=== PATIENT | male | born 1980 | race Caucasian/White ===

== ENCOUNTER 2017-07-13 09:59 | Inpatient (IN) ==
[2017-07-13] MEDS ORDERED: 0.9 % Sodium Chloride 1,000 ML IVC ONE ×2 (10:07→11:46)
[2017-07-13] MEDS ORDERED: *HR* LORazepam 2 MG/ML VIAL IVP ONE (10:07)
[2017-07-13 10:24] LABS: Basophils % 0.4 %; Eosinophils % 0.1 %; Hematocrit 46.3 % (37.5-50.1); Hemoglobin 16.1 g/dL (12.9-16.9); Immature Granulocytes % 0.3 % (0-4); Lymphocytes # 2.2 K/mcL (0.6-4.6); Lymphocytes % 22.4 %; Mean Corpuscular HGB Conc 34.8 g/dL (31.6-35.5); Mean Corpuscular Hemoglobin 29.6 pg (28.0-33.3); Mean Corpuscular Volume 85.1 fL (83.0-100.0); Mean Platelet Volume 8.3 fL (9.4-12.4); Monocytes # 0.5 K/mcL (0.0-1.3); Monocytes % 4.6 %; Neutrophils # 7.2 K/mcL (1.6-8.9); Platelet Count 285 K/mcL (140-400); Red Blood Count 5.44 M/mcL (4.19-5.50); Red Cell Distribution Width 12.4 % (11.5-14.5); Segmented Neutrophils % 72.2 %
--- NOTE | 2017-07-13 10:25 | Emergency Department Note ---
Disposition Clinical Impression: Alcohol withdrawal Qualifiers: Complication of substance-induced condition: uncomplicated Qualified Code(s): F10.230 - Alcohol dependence with withdrawal, uncomplicated Disposition: Home, Self-Care Condition: Fair Referrals: NONE,PCP [Primary Care Provider] - Forms: ED Satisfaction Letter Time of Disposition: 13:28 General Adult HPI - General Chief complaint: ED Psychiatric Symptoms Stated complaint: anxiety Time Seen by Provider: 07/13/17 10:07 Source: patient Limitations: no limitations Nursing Notes Reviewed: Yes Vital Signs Reviewed: Yes - History of Present Illness HPI Narrative: Alert, oriented, and nontoxic appearing 36-year-old male presents by EMS for evaluation of anxiety after a 5 day stretch of "binge drinking". The patient states a history of heavy alcohol use. He states that he can go months at a time without drinking however when he does, "I will drink heavily for 4-5 days" . He states that his last drink was a 24 ounce can of beer at approximately 8: 00 this morning. He states that he is wanted to get help with his alcoholism however "nobody will see me because I do not have insurance". He denies any increased stresses at home. He denies any suicidal or homicidal ideations. He denies any auditory or visual hallucinations. He denies any chest pain, shortness of breath, abdominal pain, or any other medical complaints or concerns at this time. Pt Subjective Complaint: Anxiety Onset (ago): Just [employer] Pain Scale: 0 Improves with: nothing Worsens with: nothing Associated symptoms: Reports: denies other symptoms - Related Data Previous Rx's Medication Instructions Recorded HYDROcodone/Acet 5/325 mg [[place] 1 tab PO Q6H PRN #7 tab 08/06/16 5-325 mg] Hydrocortisone Acetate [Anusol-Hc] 25 mg RC BID #6 supp.rect 08/06/16 Ibuprofen [Motrin] 800 mg PO Q8HR #30 tablet 03/07/17 Polymyxn-B/Trimeth Opth Drops 1 drop RIGHT EYE QID 7 Days #1 04/01/17 [Polytrim Opth Drops] bottle Allergies Allergy/AdvReac Type Severity Reaction Status Date / Time No Known Allergies Allergy Verified 03/07/17 17:38 All systems ED: reviewed and negative except as stated. Constitutional: Denies: fever, chills, weakness, weight change Eyes: Denies: eye pain, eye discharge, vision change ENT ED: Denies: ear pain, throat pain, dental pain, hearing loss, epistaxis, congestion, dysphagia Cardiovascular: Denies: chest pain, palpitations, dyspnea on exertion, edema, syncope Respiratory: Denies: cough, dyspnea, wheezes, hemoptysis, stridor Gastrointestinal: Denies: abdominal pain, nausea, vomiting, diarrhea, constipation, hematemesis, melena, hematochezia Genitourinary: Denies: urgency, dysuria, frequency, hematuria Musculoskeletal: Denies: back pain, neck pain, arthralgia, myalgia Integumentary: Denies: rash, abrasion, lesions Neurological: Denies: headache, weakness, numbness, paresthesias, confusion, abnormal gait, vertigo Psychiatric: Reports: as per HPI, anxiety. Denies: depression, suicidal thoughts, homicidal thoughts, auditory hallucinations, visual hallucinations Endocrine: Denies: fatigue Hematological/Lymphatic: Denies: easy bleeding, easy bruising Allergic/Immunologic: Denies: facial swelling, urticaria Past Medical History - Past Medical History Attestation: Yes The following information was validated with the patient. Source: patient, nursing notes reviewed Medical history: Reports: hypertension, other Surgical history: Reports: non-contributory Psychiatric history: Reports: anxiety, depression - Social History Smoking Status: Current every day smoker Smokeless Tobacco Status: No Alcohol use: Reports: heavy, recent Drug use: Reports: none Physical Exam - General Limitations: no limitations General appearance: alert, anxious - Head Head exam: atraumatic, normocephalic, normal inspection - Eye Eye exam: Present: normal appearance, PERRL, EOMI. Absent: nystagmus - ENT ENT exam: mucous membranes moist - Neck Neck exam: Present: normal inspection, full ROM, trachea midline - Chest Chest inspection: Present: normal inspection, symmetric chest wall rise - Respiratory Respiratory exam: Present: normal lung sounds bilaterally. Absent: respiratory distress, wheezes, stridor, accessory muscle use, prolonged expiratory phase - Cardiovascular Cardiovascular exam: Present: normal rhythm, tachycardia, normal heart sounds - Abdominal Exam Abdominal exam: Present: soft, Non-Tender, normal bowel sounds - Extremities Exam Extremities exam: Present: normal inspection, full ROM. Absent: tenderness, pedal edema - Neurological Exam Neurological exam: Present: alert, oriented X3, normal gait - Psychiatric Psychiatric exam: Present: normal affect, normal mood, anxious - Skin Skin exam: Present: warm, dry, intact, normal color. Absent: rash Course Course Narrative: 1327: I spoke with Dr. Taylor of the Hospital services accepted the patient for further observation. I discussed this plan with Dr. Sherman. Dr. Hayes has had a [id number] evaluation with the patient and agrees with this plan. Vital Signs Temperature 98.7 F 07/13/17 10:01 Pulse Rate 146 07/13/17 10:01 Respiratory Rate 20 07/13/17 10:01 Blood Pressure 199/109 07/13/17 10:01 O2 Sat by Pulse Oximetry 96 07/13/17 10:01 Temperature 98.7 F 07/13/17 10:01 Pulse Rate 124 07/13/17 12:52 Respiratory Rate 16 07/13/17 12:52 Blood Pressure 157/108 07/13/17 12:52 O2 Sat by Pulse Oximetry 93 07/13/17 12:52 Oxygen Delivery Oxygen Delivery Room Air Medical Decision Making - Medical Records Medical records reviewed: Yes I reviewed the patient's medical records. - Lab Data Lab results reviewed: Yes I reviewed the patient's lab results. Lab results narrative: Laboratory Last Values WBC 9.9 K/mcL (4.3-11.1) 07/13/17 10:07 RBC 5.44 M/mcL (4.19-5.50) 07/13/17 10:07 Hgb 16.1 g/dL (12.9-16.9) 07/13/17 10:07 Hct 46.3 % (37.5-50.1) 07/13/17 10:07 MCV 85.1 fL (83.0-100.0) 07/13/17 10:07 MCH 29.6 pg (28.0-33.3) 07/13/17 10:07 MCHC 34.8 g/dL (31.6-35.5) 07/13/17 10:07 RDW 12.4 % (11.5-14.5) 07/13/17 10:07 Plt Count 285 K/mcL (140-400) 07/13/17 10:07 MPV 8.3 fL (9.4-12.4) L 07/13/17 10:07 Immature Gran % 0.3 % (0-4) 07/13/17 10:07 Seg Neutrophils % 72.2 % 07/13/17 10:07 Lymphocytes % 22.4 % 07/13/17 10:07 Monocytes % 4.6 % 07/13/17 10:07 Eosinophils % 0.1 % 07/13/17 10:07 Basophils % 0.4 % 07/13/17 10:07 Neutrophils # 7.2 K/mcL (1.6-8.9) 07/13/17 10:07 Lymphocytes # 2.2 K/mcL (0.6-4.6) 07/13/17 10:07 Monocytes # 0.5 K/mcL (0.0-1.3) 07/13/17 10:07 Eosinophils # 0.0 K/mcL (0.0-0.6) 07/13/17 10:07 Basophils # 0.0 K/mcL (0.0-0.2) 07/13/17 10:07 PT 10.5 Seconds (9.4-12.1) 07/13/17 10:07 INR 1.0 07/13/17 10:07 D-Dimer 309 ng/mLFEU (0-500) 07/13/17 11:46 Sodium 135 mEq/L (136-145) L 07/13/17 10:07 Potassium 3.1 mEq/L (3.5-5.1) L 07/13/17 10:07 Chloride 99 mEq/L (98-107) 07/13/17 10:07 Carbon Dioxide 19 mEq/L (23-29) L 07/13/17 10:07 BUN 8 mg/dL (6-20) 07/13/17 10:07 Creatinine 0.83 mg/dL (0.70-1.30) 07/13/17 10:07 Est GFR ( Amer) > 60 (> 60) 07/13/17 10:07 Est GFR (Non-Af Amer) > 60 (> 60) 07/13/17 10:07 BUN/Creatinine Ratio 10 (6-26) 07/13/17 10:07 Glucose 115 mg/dL (70-105) H 07/13/17 10:07 Calculated Osmolality 279 (280-300) L 07/13/17 10:07 Calcium 9.6 mg/dL (8.6-10.3) 07/13/17 10:07 Phosphorus 3.0 mg/dL (2.7-4.5) 07/13/17 10:07 Magnesium 1.9 mg/dL (1.6-2.6) 07/13/17 10:07 Total Bilirubin 0.8 mg/dL (0.3-1.0) 07/13/17 10:07 AST 35 Units/L (13-39) 07/13/17 10:07 ALT 51 Units/L (7-52) 07/13/17 10:07 Alkaline Phosphatase 68 Units/L (34-104) 07/13/17 10:07 Troponin I < 0.03 ng/mL (< 0.04) 07/13/17 10:09 Serum Total Protein 8.3 g/dL (6.4-8.9) 07/13/17 10:07 Albumin 5.0 g/dL (3.5-5.7) 07/13/17 10:07 Globulin 3.3 g/dL (2.4-3.5) 07/13/17 10:07 Albumin/Globulin Ratio 1.5 (1.1-2.2) 07/13/17 10:07 Lipase 44 Units/L (11-82) 07/13/17 10:07 TSH 1.712 mcIU/mL (0.340-5.600) 07/13/17 10:09 Urine Color Yellow (Yellow) 07/13/17 10:40 Urine Clarity Clear (Clear) 07/13/17 10:40 Urine pH 6.5 pH Units (5.0-8.0) 07/13/17 10:40 Ur Specific Gary 1.010 (1.010-1.025) 07/13/17 10:40 Urine Protein 30 mg/dL (Neg-Trace) H 07/13/17 10:40 Urine Glucose (UA) Normal mg/dL (Normal) 07/13/17 10:40 Urine Ketones Negative mg/dL (Negative) 07/13/17 10:40 Urine Blood Trace (Negative) H 07/13/17 10:40 Urine Nitrite Negative (Negative) 07/13/17 10:40 Urine Bilirubin Negative (Negative) 07/13/17 10:40 Urine Urobilinogen Normal mg/dL (Normal) 07/13/17 10:40 Ur Leukocyte Esterase Negative (Negative) 07/13/17 10:40 Urine Microscopic RBC 0-3 per hpf (0-3) 07/13/17 10:40 Urine Microscopic WBC 0-3 per hpf (0-3) 07/13/17 10:40 Ur Squamous Epith Cells None Seen per lpf (None-Few) 07/13/17 10:40 Urine Bacteria None Seen per hpf (None-Few) 07/13/17 10:40 Hyaline Casts None Seen per lpf (None-Few) 07/13/17 10:40 Urine Opiates Screen Negative ng/mL (Sdzhhe=892) 07/13/17 10:40 Ur Barbiturates Screen Negative ng/mL (Fiejek=730) 07/13/17 10:40 Ur Phencyclidine Scrn Negative ng/mL (Cutoff=25) 07/13/17 10:40 Ur Amphetamines Screen Negative ng/mL (Wlkuim=9775) 07/13/17 10:40 U Benzodiazepines Scrn Negative ng/mL (Awizsi=050) 07/13/17 10:40 Urine Cocaine Screen Negative ng/mL (Cutoff= 300) 07/13/17 10:40 U Marijuana (THC) Screen Negative ng/mL (Cutoff = 50) 07/13/17 10:40 Ethyl Alcohol 31 mg/dL (Less than 10) H 07/13/17 10:07 Result diagrams: 07/13/17 10:07 07/13/17 10:07 Lab Results 07/13/17 07/13/17 07/13/17 Range/Units 10:07 10:07 10:07 WBC 9.9 (4.3-11.1) K/mcL RBC 5.44 (4.19-5.50) M/mcL Hgb 16.1 (12.9-16.9) g/dL Hct 46.3 (37.5-50.1) % MCV 85.1 (83.0-100.0) fL MCH 29.6 (28.0-33.3) pg MCHC 34.8 (31.6-35.5) g/dL RDW 12.4 (11.5-14.5) % Plt Count 285 (140-400) K/mcL MPV 8.3 L (9.4-12.4) fL Immature Gran % 0.3 (0-4) % Seg Neutrophils % 72.2 % Lymphocytes % 22.4 % Monocytes % 4.6 % Eosinophils % 0.1 % Basophils % 0.4 % Neutrophils # 7.2 (1.6-8.9) K/mcL Lymphocytes # 2.2 (0.6-4.6) K/mcL Monocytes # 0.5 (0.0-1.3) K/mcL Eosinophils # 0.0 (0.0-0.6) K/mcL Basophils # 0.0 (0.0-0.2) K/mcL PT 10.5 (9.4-12.1) Seconds INR 1.0 D-Dimer (0-500) ng/mLFEU Sodium 135 L (136-145) mEq/L Potassium 3.1 L (3.5-5.1) mEq/L Chloride 99 (98-107) mEq/L Carbon Dioxide 19 L (23-29) mEq/L BUN 8 (6-20) mg/dL Creatinine 0.83 (0.70-1.30) mg/dL Est GFR ( Amer) > 60 (> 60) Est GFR (Non-Af Amer) > 60 (> 60) BUN/Creatinine Ratio 10 (6-26) Glucose 115 H (70-105) mg/dL Calculated Osmolality 279 L (280-300) Calcium 9.6 (8.6-10.3) mg/dL Phosphorus 3.0 (2.7-4.5) mg/dL Magnesium 1.9 (1.6-2.6) mg/dL Total Bilirubin 0.8 (0.3-1.0) mg/dL AST 35 (13-39) Units/L ALT 51 (7-52) Units/L Alkaline Phosphatase 68 (34-104) Units/L Troponin I (< 0.04) ng/mL Serum Total Protein 8.3 (6.4-8.9) g/dL Albumin 5.0 (3.5-5.7) g/dL Globulin 3.3 (2.4-3.5) g/dL Albumin/Globulin Ratio 1.5 (1.1-2.2) Lipase 44 (11-82) Units/L TSH (0.340-5.600) mcIU/mL Urine Color (Yellow) Urine Clarity (Clear) Urine pH (5.0-8.0) pH Units Ur Specific Gary (1.010-1.025) Urine Protein (Neg-Trace) mg/dL Urine Glucose (UA) (Normal) mg/dL Urine Ketones (Negative) mg/dL Urine Blood (Negative) Urine Nitrite (Negative) Urine Bilirubin (Negative) Urine Urobilinogen (Normal) mg/dL Ur Leukocyte Esterase (Negative) Urine Microscopic RBC (0-3) per hpf Urine Microscopic WBC (0-3) per hpf Ur Squamous Epith Cells (None-Few) per lpf Urine Bacteria (None-Few) per hpf Hyaline Casts (None-Few) per lpf Urine Opiates Screen (Zedadq=387) ng/mL Ur Barbiturates Screen (Qherkz=882) ng/mL Ur Phencyclidine Scrn (Cutoff=25) ng/mL Ur Amphetamines Screen (Dnvphi=3510) ng/mL U Benzodiazepines Scrn (Xxetnh=759) ng/mL Urine Cocaine Screen (Cutoff= 300) ng/mL U Marijuana (THC) Screen (Cutoff = 50) ng/mL Ethyl Alcohol 31 H (Less than 10) mg/dL 07/13/17 07/13/17 07/13/17 Range/Units 10:09 10:40 10:40 WBC (4.3-11.1) K/mcL RBC (4.19-5.50) M/mcL Hgb (12.9-16.9) g/dL Hct (37.5-50.1) % MCV (83.0-100.0) fL MCH (28.0-33.3) pg MCHC (31.6-35.5) g/dL RDW (11.5-14.5) % Plt Count (140-400) K/mcL MPV (9.4-12.4) fL Immature Gran % (0-4) % Seg Neutrophils % % Lymphocytes % % Monocytes % % Eosinophils % % Basophils % % Neutrophils # (1.6-8.9) K/mcL Lymphocytes # (0.6-4.6) K/mcL Monocytes # (0.0-1.3) K/mcL Eosinophils # (0.0-0.6) K/mcL Basophils # (0.0-0.2) K/mcL PT (9.4-12.1) Seconds INR D-Dimer (0-500) ng/mLFEU Sodium (136-145) mEq/L Potassium (3.5-5.1) mEq/L Chloride (98-107) mEq/L Carbon Dioxide (23-29) mEq/L BUN (6-20) mg/dL Creatinine (0.70-1.30) mg/dL Est GFR ( Amer) (> 60) Est GFR (Non-Af Amer) (> 60) BUN/Creatinine Ratio (6-26) Glucose (70-105) mg/dL Calculated Osmolality (280-300) Calcium (8.6-10.3) mg/dL Phosphorus (2.7-4.5) mg/dL Magnesium (1.6-2.6) mg/dL Total Bilirubin (0.3-1.0) mg/dL AST (13-39) Units/L ALT (7-52) Units/L Alkaline Phosphatase (34-104) Units/L Troponin I < 0.03 (< 0.04) ng/mL Serum Total Protein (6.4-8.9) g/dL Albumin (3.5-5.7) g/dL Globulin (2.4-3.5) g/dL Albumin/Globulin Ratio (1.1-2.2) Lipase (11-82) Units/L TSH 1.712 (0.340-5.600) mcIU/mL Urine Color Yellow (Yellow) Urine Clarity Clear (Clear) Urine pH 6.5 (5.0-8.0) pH Units Ur Specific Gary 1.010 (1.010-1.025) Urine Protein 30 H (Neg-Trace) mg/dL Urine Glucose (UA) Normal (Normal) mg/dL Urine Ketones Negative (Negative) mg/dL Urine Blood Trace H (Negative) Urine Nitrite Negative (Negative) Urine Bilirubin Negative (Negative) Urine Urobilinogen Normal (Normal) mg/dL Ur Leukocyte Esterase Negative (Negative) Urine Microscopic RBC 0-3 (0-3) per hpf Urine Microscopic WBC 0-3 (0-3) per hpf Ur Squamous Epith Cells None Seen (None-Few) per lpf Urine Bacteria None Seen (None-Few) per hpf Hyaline Casts None Seen (None-Few) per lpf Urine Opiates Screen Negative (Dlmybh=011) ng/mL Ur Barbiturates Screen Negative (Cerilg=028) ng/mL Ur Phencyclidine Scrn Negative (Cutoff=25) ng/mL Ur Amphetamines Screen Negative (Sdsobo=0944) ng/mL U Benzodiazepines Scrn Negative (Mrrkmo=600) ng/mL Urine Cocaine Screen Negative (Cutoff= 300) ng/mL U Marijuana (THC) Screen Negative (Cutoff = 50) ng/mL Ethyl Alcohol (Less than 10) mg/dL 07/13/17 Range/Units 11:46 WBC (4.3-11.1) K/mcL RBC (4.19-5.50) M/mcL Hgb (12.9-16.9) g/dL Hct (37.5-50.1) % MCV (83.0-100.0) fL MCH (28.0-33.3) pg MCHC (31.6-35.5) g/dL RDW (11.5-14.5) % Plt Count (140-400) K/mcL MPV (9.4-12.4) fL Immature Gran % (0-4) % Seg Neutrophils % % Lymphocytes % % Monocytes % % Eosinophils % % Basophils % % Neutrophils # (1.6-8.9) K/mcL Lymphocytes # (0.6-4.6) K/mcL Monocytes # (0.0-1.3) K/mcL Eosinophils # (0.0-0.6) K/mcL Basophils # (0.0-0.2) K/mcL PT (9.4-12.1) Seconds INR D-Dimer 309 (0-500) ng/mLFEU Sodium (136-145) mEq/L Potassium (3.5-5.1) mEq/L Chloride (98-107) mEq/L Carbon Dioxide (23-29) mEq/L BUN (6-20) mg/dL Creatinine (0.70-1.30) mg/dL Est GFR ( Amer) (> 60) Est GFR (Non-Af Amer) (> 60) BUN/Creatinine Ratio (6-26) Glucose (70-105) mg/dL Calculated Osmolality (280-300) Calcium (8.6-10.3) mg/dL Phosphorus (2.7-4.5) mg/dL Magnesium (1.6-2.6) mg/dL Total Bilirubin (0.3-1.0) mg/dL AST (13-39) Units/L ALT (7-52) Units/L Alkaline Phosphatase (34-104) Units/L Troponin I (< 0.04) ng/mL Serum Total Protein (6.4-8.9) g/dL Albumin (3.5-5.7) g/dL Globulin (2.4-3.5) g/dL Albumin/Globulin Ratio (1.1-2.2) Lipase (11-82) Units/L TSH (0.340-5.600) mcIU/mL Urine Color (Yellow) Urine Clarity (Clear) Urine pH (5.0-8.0) pH Units Ur Specific Gary (1.010-1.025) Urine Protein (Neg-Trace) mg/dL Urine Glucose (UA) (Normal) mg/dL Urine Ketones (Negative) mg/dL Urine Blood (Negative) Urine Nitrite (Negative) Urine Bilirubin (Negative) Urine Urobilinogen (Normal) mg/dL Ur Leukocyte Esterase (Negative) Urine Microscopic RBC (0-3) per hpf Urine Microscopic WBC (0-3) per hpf Ur Squamous Epith Cells (None-Few) per lpf Urine Bacteria (None-Few) per hpf Hyaline Casts (None-Few) per lpf Urine Opiates Screen (Vdxixa=725) ng/mL Ur Barbiturates Screen (Fcrghh=033) ng/mL Ur Phencyclidine Scrn (Cutoff=25) ng/mL Ur Amphetamines Screen (Rmsdkc=1492) ng/mL U Benzodiazepines Scrn (Oqihke=626) ng/mL Urine Cocaine Screen (Cutoff= 300) ng/mL U Marijuana (THC) Screen (Cutoff = 50) ng/mL Ethyl Alcohol (Less than 10) mg/dL - Radiology Data Radiology results reviewed: Yes I reviewed the patient's radiology results. Chest X-Ray 07/13/17 10:07 IMPRESSION: No acute cardiopulmonary process. D/ / 07/13/2017 11:19:05 Virgilio Gore MD / [email or web address] Interpreting Provider: Virgilio Gore MD - EKG Data EKG #1 EKG attestation: Yes I reviewed and interpreted this EKG. EKG results narrative: EKG reviewed by Dr. Barber as well. EKG shows a sinus tachycardia at a rate of 137 bpm. MD interval 136, QRS duration 89, QT/QTc interval 3-4/404. No ectopy noted. No ST elevation. No significant changes when compared to an EKG dated from .
[2017-07-13 10:50] LABS: Alanine Aminotransferase 51 Units/L (7-52); Albumin/Globulin Ratio 1.5 (1.1-2.2); Alkaline Phosphatase 68 Units/L (34-104); Aspartate Amino Transferase 35 Units/L (13-39); BUN/Creatinine Ratio 10 (6-26); Bilirubin,Total 0.8 mg/dL (0.3-1.0); Blood Urea Nitrogen 8 mg/dL (6-20); Calcium 9.6 mg/dL (8.6-10.3); Carbon Dioxide 19 mEq/L (23-29); Chloride 99 mEq/L (98-107); Globulin 3.3 g/dL (2.4-3.5); Glucose 115 mg/dL (70-105); Lipase 44 Units/L (11-82); Magnesium 1.9 mg/dL (1.6-2.6); Osmolality,Calculated 279 (280-300); Potassium 3.1 mEq/L (3.5-5.1); Sodium 135 mEq/L (136-145); Total Protein 8.3 g/dL (6.4-8.9); eGFR For African Americans > 60 (> 60); eGFR For Non-African Americans > 60 (> 60)
[2017-07-13 10:52] LABS: Troponin I < 0.03 ng/mL (< 0.04)
[2017-07-13 10:58] LABS: Prothrombin Time 10.5 Seconds (9.4-12.1)
[2017-07-13 11:06] LABS: Thyroid Stimulating Hormone 1.712 mcIU/mL (0.340-5.600)
[2017-07-13 11:19] LABS: Bilirubin,Urine Negative (Negative); Blood,Urine Trace (Negative); Clarity,Urine Clear (Clear); Color,Urine Yellow (Yellow); Glucose,Urine (UA) Normal (Normal); Ketones,Urine Negative (Negative); Leukocyte Esterase,Urine Negative (Negative); Nitrite,Urine Negative (Negative); PH,Urine 6.5 pH Units (5.0-8.0); Protein,Urine 30 mg/dL (Neg-Trace); Urobilinogen,Urine Normal (Normal)
[2017-07-13 11:22] LABS: Bacteria,Urine None Seen per hpf (None-Few); Hyaline Casts,Urine None Seen per lpf (None-Few); RBC,Urine 0-3 per hpf (0-3); Squamous Epithelial Cell,Urine None Seen per lpf (None-Few); WBC,Urine 0-3 per hpf (0-3)
[2017-07-13 12:52] LABS: Amphetamine Screen,Urine Negative ng/mL (Cutoff=1000); Barbiturate Screen,Urine Negative ng/mL (Cutoff=200); Benzodiazepines Screen,Urine Negative ng/mL (Cutoff=200); Cannabinoid Screen,Urine Negative ng/mL (Cutoff = 50); Cocaine Screen,Urine Negative ng/mL (Cutoff= 300); Opiate Screen,Urine Negative ng/mL (Cutoff=300); Phencyclidine Screen,Urine Negative ng/mL (Cutoff=25)
[2017-07-13 12:59] LABS: Ethanol 31 mg/dL (Less than 10)
[2017-07-13] MEDS ORDERED: Folic Acid 1 MG in 0.9 % Sodium Chloride 50 ML IVPB ONE (13:09)
[2017-07-13] MEDS ORDERED: MVI, adult with vitamin K 10 ML in 0.9 % Sodium Chloride 1,000 ML IVC ONE (13:09)
[2017-07-13] MEDS ORDERED: Thiamine (B-1) 100 MG in 0.9 % Sodium Chloride 50 ML IVPB ONE (13:09)
[2017-07-13] MEDS ORDERED: Naloxone 0.4 MG/ML INJ IVP PRN (14:14)
[2017-07-13] MEDS ORDERED: *HR* LORazepam 2 MG/ML VIAL IVP PRN ×3 (14:14)
--- NOTE | 2017-07-13 14:15 | Emergency Department Note ---
Disposition Clinical Impression: Alcohol withdrawal Qualifiers: Complication of substance-induced condition: uncomplicated Qualified Code(s): F10.230 - Alcohol dependence with withdrawal, uncomplicated Disposition: Home, Self-Care Condition: Fair General Adult HPI - General Chief complaint: ED Psychiatric Symptoms Stated complaint: anxiety, alcohol abuse Time Seen by Provider: 07/13/17 10:07 Source: patient Limitations: no limitations - History of Present Illness Pain Scale: 0 Improves with: nothing Worsens with: nothing Associated symptoms: Reports: denies other symptoms - Related Data Home Medications Medication Instructions Recorded Confirmed No Known Home Drugs 07/13/17 07/13/17 Allergies Allergy/AdvReac Type Severity Reaction Status Date / Time No Known Allergies Allergy Verified 03/07/17 17:38 Constitutional: Denies: fever, chills, weakness, weight change Eyes: Denies: eye pain, eye discharge, vision change ENT ED: Denies: ear pain, throat pain, dental pain, hearing loss, epistaxis, congestion, dysphagia Cardiovascular: Denies: chest pain, palpitations, dyspnea on exertion, edema, syncope Respiratory: Denies: cough, dyspnea, wheezes, hemoptysis, stridor Gastrointestinal: Denies: abdominal pain, nausea, vomiting, diarrhea, constipation, hematemesis, melena, hematochezia Genitourinary: Denies: urgency, dysuria, frequency, hematuria Musculoskeletal: Denies: back pain, neck pain, arthralgia, myalgia Integumentary: Denies: rash, abrasion, lesions Neurological: Denies: headache, weakness, numbness, paresthesias, confusion, abnormal gait, vertigo Psychiatric: Reports: as per HPI, anxiety. Denies: depression, suicidal thoughts, homicidal thoughts, auditory hallucinations, visual hallucinations Endocrine: Denies: fatigue Hematological/Lymphatic: Denies: easy bleeding, easy bruising Allergic/Immunologic: Denies: facial swelling, urticaria Past Medical History - Past Medical History Medical history: Reports: hypertension, other Surgical history: Reports: non-contributory Psychiatric history: Reports: anxiety, depression - Social History Smoking Status: Current every day smoker Smokeless Tobacco Status: No Alcohol use: Reports: heavy, recent Drug use: Reports: none Physical Exam - General Limitations: no limitations General appearance: alert, anxious Course Vital Signs Temperature 98.7 F 07/13/17 10:01 Pulse Rate 146 07/13/17 10:01 Respiratory Rate 20 07/13/17 10:01 Blood Pressure 199/109 07/13/17 10:01 O2 Sat by Pulse Oximetry 96 07/13/17 10:01 Temperature 98.7 F 07/13/17 10:01 Pulse Rate 106 07/13/17 14:00 Respiratory Rate 16 07/13/17 14:00 Blood Pressure 166/106 07/13/17 14:00 O2 Sat by Pulse Oximetry 93 07/13/17 14:00 Oxygen Delivery Oxygen Delivery Room Air Medical Decision Making - Lab Data Result diagrams: 07/13/17 10:07 07/13/17 10:07 Lab Results 07/13/17 07/13/17 07/13/17 Range/Units 10:07 10:07 10:07 WBC 9.9 (4.3-11.1) K/mcL RBC 5.44 (4.19-5.50) M/mcL Hgb 16.1 (12.9-16.9) g/dL Hct 46.3 (37.5-50.1) % MCV 85.1 (83.0-100.0) fL MCH 29.6 (28.0-33.3) pg MCHC 34.8 (31.6-35.5) g/dL RDW 12.4 (11.5-14.5) % Plt Count 285 (140-400) K/mcL MPV 8.3 L (9.4-12.4) fL Immature Gran % 0.3 (0-4) % Seg Neutrophils % 72.2 % Lymphocytes % 22.4 % Monocytes % 4.6 % Eosinophils % 0.1 % Basophils % 0.4 % Neutrophils # 7.2 (1.6-8.9) K/mcL Lymphocytes # 2.2 (0.6-4.6) K/mcL Monocytes # 0.5 (0.0-1.3) K/mcL Eosinophils # 0.0 (0.0-0.6) K/mcL Basophils # 0.0 (0.0-0.2) K/mcL PT 10.5 (9.4-12.1) Seconds INR 1.0 D-Dimer (0-500) ng/mLFEU Sodium 135 L (136-145) mEq/L Potassium 3.1 L (3.5-5.1) mEq/L Chloride 99 (98-107) mEq/L Carbon Dioxide 19 L (23-29) mEq/L BUN 8 (6-20) mg/dL Creatinine 0.83 (0.70-1.30) mg/dL Est GFR ( Amer) > 60 (> 60) Est GFR (Non-Af Amer) > 60 (> 60) BUN/Creatinine Ratio 10 (6-26) Glucose 115 H (70-105) mg/dL Calculated Osmolality 279 L (280-300) Calcium 9.6 (8.6-10.3) mg/dL Phosphorus 3.0 (2.7-4.5) mg/dL Magnesium 1.9 (1.6-2.6) mg/dL Total Bilirubin 0.8 (0.3-1.0) mg/dL AST 35 (13-39) Units/L ALT 51 (7-52) Units/L Alkaline Phosphatase 68 (34-104) Units/L Troponin I (< 0.04) ng/mL Serum Total Protein 8.3 (6.4-8.9) g/dL Albumin 5.0 (3.5-5.7) g/dL Globulin 3.3 (2.4-3.5) g/dL Albumin/Globulin Ratio 1.5 (1.1-2.2) Lipase 44 (11-82) Units/L TSH (0.340-5.600) mcIU/mL Urine Color (Yellow) Urine Clarity (Clear) Urine pH (5.0-8.0) pH Units Ur Specific [place] (1.010-1.025) Urine Protein (Neg-Trace) mg/dL Urine Glucose (UA) (Normal) mg/dL Urine Ketones (Negative) mg/dL Urine Blood (Negative) Urine Nitrite (Negative) Urine Bilirubin (Negative) Urine Urobilinogen (Normal) mg/dL Ur Leukocyte Esterase (Negative) Urine Microscopic RBC (0-3) per hpf Urine Microscopic WBC (0-3) per hpf Ur Squamous Epith Cells (None-Few) per lpf Urine Bacteria (None-Few) per hpf Hyaline Casts (None-Few) per lpf Urine Opiates Screen (Cvrazv=659) ng/mL Ur Barbiturates Screen (Otajko=363) ng/mL Ur Phencyclidine Scrn (Cutoff=25) ng/mL Ur Amphetamines Screen (Biyipz=6830) ng/mL U Benzodiazepines Scrn (Zteftc=997) ng/mL Urine Cocaine Screen (Cutoff= 300) ng/mL U Marijuana (THC) Screen (Cutoff = 50) ng/mL Ethyl Alcohol 31 H (Less than 10) mg/dL 07/13/17 07/13/17 07/13/17 Range/Units 10:09 10:40 10:40 WBC (4.3-11.1) K/mcL RBC (4.19-5.50) M/mcL Hgb (12.9-16.9) g/dL Hct (37.5-50.1) % MCV (83.0-100.0) fL MCH (28.0-33.3) pg MCHC (31.6-35.5) g/dL RDW (11.5-14.5) % Plt Count (140-400) K/mcL MPV (9.4-12.4) fL Immature Gran % (0-4) % Seg Neutrophils % % Lymphocytes % % Monocytes % % Eosinophils % % Basophils % % Neutrophils # (1.6-8.9) K/mcL Lymphocytes # (0.6-4.6) K/mcL Monocytes # (0.0-1.3) K/mcL Eosinophils # (0.0-0.6) K/mcL Basophils # (0.0-0.2) K/mcL PT (9.4-12.1) Seconds INR D-Dimer (0-500) ng/mLFEU Sodium (136-145) mEq/L Potassium (3.5-5.1) mEq/L Chloride (98-107) mEq/L Carbon Dioxide (23-29) mEq/L BUN (6-20) mg/dL Creatinine (0.70-1.30) mg/dL Est GFR ( Amer) (> 60) Est GFR (Non-Af Amer) (> 60) BUN/Creatinine Ratio (6-26) Glucose (70-105) mg/dL Calculated Osmolality (280-300) Calcium (8.6-10.3) mg/dL Phosphorus (2.7-4.5) mg/dL Magnesium (1.6-2.6) mg/dL Total Bilirubin (0.3-1.0) mg/dL AST (13-39) Units/L ALT (7-52) Units/L Alkaline Phosphatase (34-104) Units/L Troponin I < 0.03 (< 0.04) ng/mL Serum Total Protein (6.4-8.9) g/dL Albumin (3.5-5.7) g/dL Globulin (2.4-3.5) g/dL Albumin/Globulin Ratio (1.1-2.2) Lipase (11-82) Units/L TSH 1.712 (0.340-5.600) mcIU/mL Urine Color Yellow (Yellow) Urine Clarity Clear (Clear) Urine pH 6.5 (5.0-8.0) pH Units Ur Specific [place] 1.010 (1.010-1.025) Urine Protein 30 H (Neg-Trace) mg/dL Urine Glucose (UA) Normal (Normal) mg/dL Urine Ketones Negative (Negative) mg/dL Urine Blood Trace H (Negative) Urine Nitrite Negative (Negative) Urine Bilirubin Negative (Negative) Urine Urobilinogen Normal (Normal) mg/dL Ur Leukocyte Esterase Negative (Negative) Urine Microscopic RBC 0-3 (0-3) per hpf Urine Microscopic WBC 0-3 (0-3) per hpf Ur Squamous Epith Cells None Seen (None-Few) per lpf Urine Bacteria None Seen (None-Few) per hpf Hyaline Casts None Seen (None-Few) per lpf Urine Opiates Screen Negative (Lieigm=164) ng/mL Ur Barbiturates Screen Negative (Dumwur=515) ng/mL Ur Phencyclidine Scrn Negative (Cutoff=25) ng/mL Ur Amphetamines Screen Negative (Entnxz=6402) ng/mL U Benzodiazepines Scrn Negative (Lcvihg=947) ng/mL Urine Cocaine Screen Negative (Cutoff= 300) ng/mL U Marijuana (THC) Screen Negative (Cutoff = 50) ng/mL Ethyl Alcohol (Less than 10) mg/dL 07/13/17 Range/Units 11:46 WBC (4.3-11.1) K/mcL RBC (4.19-5.50) M/mcL Hgb (12.9-16.9) g/dL Hct (37.5-50.1) % MCV (83.0-100.0) fL MCH (28.0-33.3) pg MCHC (31.6-35.5) g/dL RDW (11.5-14.5) % Plt Count (140-400) K/mcL MPV (9.4-12.4) fL Immature Gran % (0-4) % Seg Neutrophils % % Lymphocytes % % Monocytes % % Eosinophils % % Basophils % % Neutrophils # (1.6-8.9) K/mcL Lymphocytes # (0.6-4.6) K/mcL Monocytes # (0.0-1.3) K/mcL Eosinophils # (0.0-0.6) K/mcL Basophils # (0.0-0.2) K/mcL PT (9.4-12.1) Seconds INR D-Dimer 309 (0-500) ng/mLFEU Sodium (136-145) mEq/L Potassium (3.5-5.1) mEq/L Chloride (98-107) mEq/L Carbon Dioxide (23-29) mEq/L BUN (6-20) mg/dL Creatinine (0.70-1.30) mg/dL Est GFR ( Amer) (> 60) Est GFR (Non-Af Amer) (> 60) BUN/Creatinine Ratio (6-26) Glucose (70-105) mg/dL Calculated Osmolality (280-300) Calcium (8.6-10.3) mg/dL Phosphorus (2.7-4.5) mg/dL Magnesium (1.6-2.6) mg/dL Total Bilirubin (0.3-1.0) mg/dL AST (13-39) Units/L ALT (7-52) Units/L Alkaline Phosphatase (34-104) Units/L Troponin I (< 0.04) ng/mL Serum Total Protein (6.4-8.9) g/dL Albumin (3.5-5.7) g/dL Globulin (2.4-3.5) g/dL Albumin/Globulin Ratio (1.1-2.2) Lipase (11-82) Units/L TSH (0.340-5.600) mcIU/mL Urine Color (Yellow) Urine Clarity (Clear) Urine pH (5.0-8.0) pH Units Ur Specific [place] (1.010-1.025) Urine Protein (Neg-Trace) mg/dL Urine Glucose (UA) (Normal) mg/dL Urine Ketones (Negative) mg/dL Urine Blood (Negative) Urine Nitrite (Negative) Urine Bilirubin (Negative) Urine Urobilinogen (Normal) mg/dL Ur Leukocyte Esterase (Negative) Urine Microscopic RBC (0-3) per hpf Urine Microscopic WBC (0-3) per hpf Ur Squamous Epith Cells (None-Few) per lpf Urine Bacteria (None-Few) per hpf Hyaline Casts (None-Few) per lpf Urine Opiates Screen (Sylqpe=352) ng/mL Ur Barbiturates Screen (Crsihq=809) ng/mL Ur Phencyclidine Scrn (Cutoff=25) ng/mL Ur Amphetamines Screen (Mhtczw=4228) ng/mL U Benzodiazepines Scrn (Zqrtmd=940) ng/mL Urine Cocaine Screen (Cutoff= 300) ng/mL U Marijuana (THC) Screen (Cutoff = 50) ng/mL Ethyl Alcohol (Less than 10) mg/dL Attestation Statement - Attestation Attestation: For this encounter, I have reviewed the DISMANTLER or PA documentation, treatment plan, and medical decision making; and I have had face to face time with this patient. 36-year-old who comes in with heavy alcohol intake has not drank in several hours now with anxiousness and tachycardia appears to be in withdrawal. Lungs are clear abdomen is soft. Patient will be admitted for alcohol withdrawal.
--- NOTE | 2017-07-13 14:28 | Internal Med History&Physical ---
<Venkat Ivy - Last Filed: 07/13/17 16:46> Date of Encounter: 07/13/17 Time of Encounter: 14:20 Internal Medicine - H&P: HPI Chief complaint: Concern for alcohol withdrawal Admitted From: Home Plans for Post Hospital Care: Home History of present illness: Mr. Vera is a 36 year old male with history of alcohol abuse and hypertension. Presents today by EMS reevaluation of anxiety. The patient reports that he has been drinking heavily recently. He notes that sometimes he will go months at a time without drinking however over the last 4-5 days he has been drinking very heavily. He states that last Thursday he attempted to quit drinking but within the first 24 hours he became very anxious. So began drinking again over the last 4-5 days. He reports that his last drink was 8 AM this morning. He also reports that he does wish to quit drinking and has been seeing the [facility] however he notes he does not attend his classes. He denies any suicidal or homicidal ideation, denies auditory or visual hallucinations. Denies any chest pain, shortness of breath, abdominal pain, nausea, vomiting or diarrhea. Past Med Surg Social Fam HX - Past Medical History Medical history: hypertension, other Psychiatric history: anxiety, depression - Past Surgical History Surgical History: non-contributory - Social History Smoking Status: Current every day smoker Smokeless Tobacco Status: No Alcohol use: heavy, recent Drug use: none - Family History Mother History Unknown: Yes Internal Medicine - H&P: Meds No Known Home Drugs 07/13/17 [History] 3 Allergy/AdvReac Type Severity Reaction Status Date / Time No Known Allergies Allergy Verified 03/07/17 17:38 All Systems PM: A 10-system review of systems was performed and is negative for pertinent findings except as documented above in the HPI. - Constitutional Constitutional: no chills, no fever(s), no night sweats - Cardiovascular Cardiovascular ROS IM: no chest pain, no diaphoresis, no dyspnea, no lightheadedness, no palpitations, no syncope - Respiratory Respiratory: no cough, no dyspnea, no wheezing, no excessive phlegm production - Gastrointestinal Gastrointestinal: no abdominal pain, no diarrhea, no hematemesis, no hematochezia, no melena, no nausea, no vomiting - Musculoskeletal Musculoskeletal ROS IM: no numbness, no tingling - Neurological Neurological ROS: no confusion, no convulsions, no focal weakness, no numbness, no tingling, no tremor(s) - Psychiatric Psychiatric: anxiety, no auditory hallucinations, no behavioral changes, no confusion, no hallucinations - Constitutional Vitals: Temp Pulse Resp BP Pulse Ox 98.7 F 106 16 166/106 93 07/13/17 10:01 07/13/17 14:00 07/13/17 14:00 07/13/17 14:00 07/13/17 14:00 General appearance: Present: cooperative, A&O X 3, no acute distress, answers questions appropriately - Head Head exam: Present: atraumatic, normocephalic - Eye Eye exam: Present: PERRL, conjuntiva pink, sclera anicteric Pupils: Present: PERRL - Neck Neck exam general surgery: Present: supple, trachea midline. Absent: lymphadenopathy - Respiratory Respiratory exam: Present: CTAB. Absent: accessory muscle use, rales, rhonchi, wheezes - Cardiovascular Cardiovascular exam: Present: RRR, +S1, +S2. Absent: diastolic murmur, gallop, rubs, systolic murmur - GI/Abdominal GI/Abdominal exam: Present: normal bowel sounds, soft, no peritoneal signs. Absent: distended, tenderness - Extremities Exam Extremities exam: Present: warm, radial pulses palpable and symmetrical. Absent : calf tenderness, cyanotic, pedal edema - Neurological Exam Neurological exam: Present: CN II-XII intact, oriented X3, no focal deficits. Absent: pronater drift, facial droop, speech deficit - Skin Skin exam: Present: dry, intact Internal Med - H&P Results - Labs CBC & Chem 7: 07/13/17 10:07 07/13/17 10:07 - Impressions Impressions Chest X-Ray 07/13/17 10:07 IMPRESSION: No acute cardiopulmonary process. D/ / 07/13/2017 11:19:05 Virgilio Gore MD / [email or web address] Interpreting Provider: Virgilio Gore MD - VTE Reasons for not Prescribing Prophylaxis: Treatment not Indicated - Low risk for VTE - Assessment and plan (1) Alcohol withdrawal Current Visit: Yes Status: Acute Assessment and plan: Presenting today in alcohol withdrawal. Denying any suicidal or homicidal ideation but is having severe anxiety. His last drink was this morning at 8 AM. Implement CIWA protocol-with Ativan Seizure precautions Check blood glucose per protocol Every 2 hours neuro checks Folate thiamine and B12 IVF, then by mouth daily interlibrary loan services librarian consult as patient is considering rehabilitation Qualifiers: Complication of substance-induced condition: uncomplicated Qualified Code(s ): F10.230 - Alcohol dependence with withdrawal, uncomplicated (2) HTN (hypertension) Current Visit: Yes Status: Acute Assessment and plan: Has a history of hypertension. Does not take any blood pressure medication. We will start him on a low-dose beta sarah at this time as her SBP has been in the 160s today it is also tachycardic Qualifiers: Hypertension type: essential hypertension Qualified Code(s): I10 - Essential (primary) hypertension (3) DVT prophylaxis Current Visit: Yes Status: Acute Assessment and plan: Early ambulation (4) Hypokalemia Current Visit: Yes Status: Acute Assessment and plan: Noted to be hypokalemic today with potassium of 3.1 Received 40meq by mouth potassium in the ED He will receive another 20meq potassium now Recheck BMP in the morning Patient is on telemetry - Time Spent With Patient Total time spent is greater than 50% in coordination of care (as documented) at patient's floor/unit and/or counseling patient: 25 - 35 minutes <Sky Taylor - Last Filed: 07/13/17 17:26> Date of Encounter: 07/13/17 Time of Encounter: 15:00 - Constitutional Vitals: Temp Pulse Resp BP Pulse Ox 99.5 F 100 16 174/108 95 07/13/17 15:01 07/13/17 15:01 07/13/17 15:01 07/13/17 15:01 07/13/17 15:01 General appearance: Present: cooperative, A&O X 3, pleasant, no acute distress, answers questions appropriately Exam: mildly anxious and jittery but, overall, feels much better - Head Head exam: Present: atraumatic - Eye Eye exam: Present: EOMI, PERRL. Absent: scleral icterus - ENT ENT exam: Present: mucous membranes dry, normal exam - Neck Neck exam general surgery: Present: supple - Respiratory Respiratory exam: Present: CTAB. Absent: chest wall tenderness, rales, rhonchi , wheezes - Cardiovascular Cardiovascular exam: Present: RRR, +S1, +S2. Absent: diastolic murmur, systolic murmur - GI/Abdominal GI/Abdominal exam: Present: soft. Absent: hepatomegaly, splenomegaly, tenderness - Extremities Exam Extremities exam: Present: warm, radial pulses palpable and symmetrical. Absent : pedal edema, tenderness - Back Exam Back exam: Absent: CVA tenderness (L), CVA tenderness (R) - Neurological Exam Neurological exam: Present: alert, CN II-XII intact, oriented X3, no focal deficits Additional comments: mildly jittery and anxious, otherwise negative - Psychiatric Psychiatric exam: Present: anxious. Absent: depressed, homicidal ideation, manic, suicidal ideation Additional comments: no hallucinations or delusions - Skin Skin exam: Present: dry, warm. Absent: rash Internal Med - H&P Results - Labs CBC & Chem 7: 07/13/17 10:07 07/13/17 10:07 - Attending Attestation I discussed the patient [place], PMH, ROS, lab data, and exam findings with Venkat Ivy CNP. I then saw and examined patient independently as well. Patient states he feels much better than initial presentation to ER. He is still a little anxious and jittery. He denies any hallucinations or delusions. He is still tachycardic and hypertensive but much improved. We started him on CIWA protocol. Additionally, we placed him on Librium for his acute alcohol withdrawal as a prophylactic measure. This can be tapered quickly based upon his clinical course and response to treatment. If he fails both above measures , then we can order him some beer as well. I discussed this with patient at length, and he voiced understanding. I counseled him on the need to abstain from alcohol as well once he recovers from his current withdrawal state. Other than the above comments and my noted exam findings, I agree with Venkat's assessment and plan. - Assessment and plan (1) Alcohol withdrawal Current Visit: Yes Status: Acute Qualifiers: Complication of substance-induced condition: uncomplicated Qualified Code(s ): F10.230 - Alcohol dependence with withdrawal, uncomplicated (2) HTN (hypertension) Current Visit: Yes Status: Acute Qualifiers: Hypertension type: essential hypertension Qualified Code(s): I10 - Essential (primary) hypertension (3) DVT prophylaxis Current Visit: Yes Status: Acute (4) Hypokalemia Current Visit: Yes Status: Acute - Time Spent With Patient Total time spent is greater than 50% in coordination of care (as documented) at patient's floor/unit and/or counseling patient:
--- NOTE | 2017-07-13 17:12 | Electrocardiograph Report ---
[place] [id number] Test Date: 2017-07-13 Pat Name: Husam Vera Department: 103 Room: 3A41 Gender: M Manager Trust: : 1980 Requested By: Sky Taylor MD Order Number: [id number] Reading MD: Patricia Diaz Measurements Intervals [place] Rate: 137 P: 60 IN: 136 QRS: 13 QRSD: 89 T: 32 QT: 324 QTc: 404 Interpretive Statements SINUS TACHYCARDIA NONSPECIFIC ST ABNORMALITIES Electronically Signed On 07-13-2017 17:10:42 EDT by Patricia Diaz
[2017-07-14 06:02] LABS: BUN/Creatinine Ratio 16 (6-26); Blood Urea Nitrogen 12 mg/dL (6-20); Calcium 9.3 mg/dL (8.6-10.3); Carbon Dioxide 23 mEq/L (23-29); Chloride 107 mEq/L (98-107); Glucose 104 mg/dL (70-105); Osmolality,Calculated 284 (280-300); Sodium 137 mEq/L (136-145); eGFR For African Americans > 60 (> 60); eGFR For Non-African Americans > 60 (> 60)
[2017-07-14] MEDS: Folic Acid 1 MG TABLET PO SCH (08:09)
[2017-07-14] MEDS: Thiamine (B-1) 100 MG TABLET PO SCH (08:10)
[2017-07-14] MEDS: Vitamin B Complex/Vit C/Vit E 1 EACH TABLET PO SCH (08:10)
--- NOTE | 2017-07-14 14:49 | Internal Med Progress Note ---
<Jose Hill - Last Filed: 07/14/17 14:47> Date of Encounter: 07/14/17 Time of Encounter: 10:05 - Assessment and plan (1) Alcohol withdrawal Current Visit: Yes Status: Acute Assessment and plan: Presenting with concerns of withdrawl. - CIWA scores have been 2-3 since admission with no Ativan used. - Librium being given, 50mg QID with PRN ativan ordered. - CIWA protocol. - Receieved banana bag, daily folate, thiamine - Seizure precautions, BS q2 hours, neuro checks -- SW consult for rehab. -- No elevation of LFTs, no signs of cirrhosis. - Obtain RUQ US for chronic cirrhosis and hepatic failure concern. Qualifiers: Complication of substance-induced condition: uncomplicated Qualified Code(s ): F10.230 - Alcohol dependence with withdrawal, uncomplicated (2) HTN (hypertension) Current Visit: Yes Status: Acute Assessment and plan: Hx of HTN not on medication - BP this morning of 148/106 - May be component of withdrawl and anxiety - Started on BB on admission, will continue Qualifiers: Hypertension type: essential hypertension Qualified Code(s): I10 - Essential (primary) hypertension (3) DVT prophylaxis Current Visit: Yes Status: Acute Assessment and plan: Early ambulation (4) Hypokalemia Current Visit: Yes Status: Acute Assessment and plan: Noted to be hypokalemic today with potassium of 3.1 Recieved 60 mEq in ED/admission THis morning of 4.0 Continue to monitor daily labs. - Time Spent With Patient Total time spent is greater than 50% in coordination of care (as documented) at patient's floor/unit and/or counseling patient: 25 - 35 minutes - Subjective Interval history: Patient was seen and examined at bedside this morning. He states that his feelings of anxiety and palpitations have resolved. We did discuss at length his drinking habits. He states he drinks 30-60 beers per night for the last 20 years. He has recently increased the amount due to losing his job 2 months ago. He has been working with [facility] for therapy but has not been attending meeting recently. Previously sober 5 years ago before relapse. Last drink 0800 on thursday. No complaints of CP, SOB, confusion, dizziness, hallucinations. - Constitutional Vitals: Temp Pulse Resp BP Pulse Ox 97.7 F 66 18 147/91 97 04/24/18 14:20 07/14/17 14:20 07/14/17 14:20 07/14/17 14:20 07/14/17 14:20 General appearance: Present: cooperative, A&O X 3, pleasant, no acute distress, answers questions appropriately Exam: Gen.: Vitals noted. No acute distress. AAOx3 HEENT: PERRL/EOMI, oropharynx clear, Normocephalic, atraumatic, MMM Cardiac: RRR, no murmur, +S1/S2 Pulmonary: CTA bilaterally, no wheezes, rales or rhonchi, equal chest expansion Abdomen: soft, nontender, BS noted, no guarding, no distention. MSK: ROM intact, no joint swelling noted Extremities: no BLE edema, nontender calf, no cyanosis or clubbing Neuro: A&Ox3, moves all extremities, no focal deficits Psych: Appropriate mood and behavior Internal Medicine: Result - Labs CBC & Chem 7: 07/13/17 10:07 07/14/17 04:48 Labs: BMP 07/14/17 04:48 Sodium 137 Potassium 4.0 D Chloride 107 Carbon Dioxide 23 BUN 12 Creatinine 0.73 Glucose 104 Calcium 9.3 - ABG Interpretation ABG results: PT/INR, D-dimer PT 10.5 Seconds (9.4-12.1) 07/13/17 10:07 D-Dimer 309 ng/mLFEU (0-500) 07/13/17 11:46 - VTE Reasons for not Prescribing Prophylaxis: Treatment not Indicated - Low risk for VTE Consult Discharge Plan - Plan Referrals: NONE,PCP [Primary Care Provider] - <Shira Fraser - Last Filed: 07/14/17 17:34> Date of Encounter: 07/14/17 - Assessment and plan (1) Alcohol withdrawal Current Visit: Yes Status: Acute Qualifiers: Complication of substance-induced condition: uncomplicated Qualified Code(s ): F10.230 - Alcohol dependence with withdrawal, uncomplicated (2) HTN (hypertension) Current Visit: Yes Status: Acute Qualifiers: Hypertension type: essential hypertension Qualified Code(s): I10 - Essential (primary) hypertension (3) DVT prophylaxis Current Visit: Yes Status: Acute (4) Hypokalemia Current Visit: Yes Status: Acute - Time Spent With Patient Total time spent is greater than 50% in coordination of care (as documented) at patient's floor/unit and/or counseling patient: - Constitutional Vitals: Temp Pulse Resp BP Pulse Ox 97.7 F 66 18 147/91 97 07/14/17 14:20 07/14/17 14:20 07/14/17 14:20 07/14/17 14:20 07/14/17 14:20 Internal Medicine: Result - Labs CBC & Chem 7: 07/13/17 10:07 07/14/17 04:48 Labs: BMP 07/14/17 04:48 Sodium 137 Potassium 4.0 D Chloride 107 Carbon Dioxide 23 BUN 12 Creatinine 0.73 Glucose 104 Calcium 9.3 - ABG Interpretation ABG results: PT/INR, D-dimer PT 10.5 Seconds (9.4-12.1) 07/13/17 10:07 D-Dimer 309 ng/mLFEU (0-500) 07/13/17 11:46 - Attending Attestation I performed a history and physical examination of the patient and discussed his/ her management with the resident. I reviewed the residents note and agree with the documented findings and plan of care.
[2017-07-14] MEDS: Nicotine 21 MG PATCH.TD24 TD SCH (21:43)
[2017-07-15 05:35] LABS: Basophils % 0.7 %; Eosinophils # 0.2 K/mcL (0.0-0.6); Eosinophils % 2.8 %; Hematocrit 46.2 % (37.5-50.1); Hemoglobin 15.5 g/dL (12.9-16.9); Immature Granulocytes % 0.2 % (0-4); Lymphocytes # 2.4 K/mcL (0.6-4.6); Lymphocytes % 39.5 %; Mean Corpuscular HGB Conc 33.5 g/dL (31.6-35.5); Mean Corpuscular Hemoglobin 29.6 pg (28.0-33.3); Mean Corpuscular Volume 88.3 fL (83.0-100.0); Mean Platelet Volume 8.7 fL (9.4-12.4); Monocytes # 0.4 K/mcL (0.0-1.3); Monocytes % 7.2 %; Neutrophils # 3.1 K/mcL (1.6-8.9); Platelet Count 216 K/mcL (140-400); Red Blood Count 5.23 M/mcL (4.19-5.50); Red Cell Distribution Width 12.7 % (11.5-14.5); Segmented Neutrophils % 49.6 %
[2017-07-15 05:51] LABS: BUN/Creatinine Ratio 15 (6-26); Blood Urea Nitrogen 13 mg/dL (6-20); Calcium 9.5 mg/dL (8.6-10.3); Carbon Dioxide 26 mEq/L (23-29); Chloride 106 mEq/L (98-107); Glucose 104 mg/dL (70-105); Osmolality,Calculated 284 (280-300); Potassium 4.1 mEq/L (3.5-5.1); Sodium 137 mEq/L (136-145); eGFR For African Americans > 60 (> 60); eGFR For Non-African Americans > 60 (> 60)
[2017-07-15] MEDS: Folic Acid 1 MG TABLET PO SCH (07:36)
[2017-07-15] MEDS: Nicotine 21 MG PATCH.TD24 TD SCH (07:37)
[2017-07-15] MEDS: Vitamin B Complex/Vit C/Vit E 1 EACH TABLET PO SCH (07:38)
[2017-07-15] MEDS: Thiamine (B-1) 100 MG TABLET PO SCH (07:38)
[2017-07-15 11:24] VITALS: BP 146/92
--- NOTE | 2017-07-15 13:30 | Discharge Summary ---
<Jose Hill - Last Filed: 07/15/17 14:23> Date of Encounter: 07/15/17 Time of Encounter: 09:20 - Discharge Diagnosis (1) Alcohol withdrawal Priority: Primary Status: Acute Assessment and Plan: Presenting with concerns of withdrawl. - CIWA scores have been 2-3 since admission with no Ativan used. - Librium taper given for discharge - Extensive conversation involving potential for future harm if alcoholism continues, patient does acknowledge and states that he will quit -- No elevation of LFTs, no signs of cirrhosis. - RUQ US wnl. Qualifiers: Complication of substance-induced condition: uncomplicated Qualified Code(s ): F10.230 - Alcohol dependence with withdrawal, uncomplicated (2) HTN (hypertension) Priority: Secondary Status: Chronic Assessment and Plan: Hx of HTN not on medication - BP this morning of 131/89 - May be component of withdrawl and anxiety - Started on BB on admission, will continue Qualifiers: Hypertension type: essential hypertension Qualified Code(s): I10 - Essential (primary) hypertension (3) DVT prophylaxis Priority: Secondary Status: Acute Assessment and Plan: Early ambulation (4) Hypokalemia Priority: Secondary Status: Resolved Assessment and Plan: Noted to be hypokalemic today with potassium of 3.1 Recieved 60 mEq in ED/admission THis morning of 4.1 Hospital course: Mr. Vera is a 36 year old male with a past medical history of hypertension on medication presented to the emergency department with chief complaint of shaking, anxiety. He is a known alcohol abuser and he states that he drinks approximately one to 2 cases of beer per day. He states that he has been drinking more heavily the past 2 months due to loss of his job. He states his last drink prior to admission was 8 AM the morning of and he blacked out the morning before and was unsure his prescription for that. He states that he began feeling palpitations, anxious the morning as he woke up and tried to take appear to resolve the symptoms, however it did not help. In the emergency department, vital signs significant for heart rate of 146, blood pressure 199/ 109. Lab results remarkable for a mild hypokalemia at 3.1, otherwise unremarkable. Alcohol level was obtained and was 31. Liver function tests were within normal limits. He was admitted to medicine service for further evaluation and management of alcohol withdrawal. During course of stay, patient did gradually improve. He was started on a CIWA protocol and given Librium scheduled 4 times daily for his withdrawal symptoms. His CIWA scores have remained consistently low in the 2s, and he states his symptoms have resolved with medication. We did obtain a social work consult as well as a right upper quadrant ultrasound to rule out any cirrhosis which was negative. He did receive multiple long discussions involving the importance of alcohol cessation and addiction and he states that he will follow up with his current program. Primary care provider in rehabilitation appointment have been set up prior to discharge. He will be sent home with a Librium taper as well as a beta sarah for his blood pressure and heart rate. He was instructed to return to the emergency department for worsening of symptoms. At the discharge , he was medically stable and all questions were answered. Labs and vitals within normal limits. Discharge discussed with: patient, family - Time Spent with Patient Total time spent providing and/or coordinating discharge services: - Discharge Medications Prescriptions: Chlordiazepoxide [Librium] See Taper PO QID 12 Days #45 capsule Metoprolol [Lopressor] 12.5 mg PO BID #20 tablet Home Medications: Chlordiazepoxide [Librium] See Taper PO QID 12 Days #45 capsule 07/15/17 [Rx] Metoprolol [Lopressor] 12.5 mg PO BID #20 tablet 07/15/17 [Rx] Allergies/Adverse Reactions: 3 Allergy/AdvReac Type Severity Reaction Status Date / Time No Known Allergies Allergy Verified 03/07/17 17:38 Date of admission: 07/13/17 14:14 Primary care physician: PCP NONE Discharging clinician: Jose Hill Anticipated date of discharge: 07/15/17 - Constitutional Vitals: Temp Pulse Resp BP Pulse Ox 97.5 F L 68 18 146/92 98 07/15/17 11:23 07/15/17 11:23 07/15/17 11:23 07/15/17 11:23 07/15/17 11:23 General appearance: Present: cooperative, A&O X 3, pleasant, no acute distress, answers questions appropriately Exam: Gen.: Vitals noted. No acute distress. AAOx3 HEENT: PERRL/EOMI, oropharynx clear, Normocephalic, atraumatic Cardiac: RRR, no murmur, +S1/S2 Pulmonary: CTA bilaterally, no wheezes, rales or rhonchi, equal chest expansion Abdomen: soft, nontender, BS noted, no guarding MSK: ROM intact, no joint swelling noted Extremities: no BLE edema, nontender calf, no cyanosis or clubbing Neuro: A&Ox3, moves all extremities, no focal deficits Psych: Appropriate mood and behavior - Patient Status Disposition: Home, Self-Care Condition: Good Functional capacity at discharge: independent ambulation Overall status at discharge: patient is progressing back to baseline - Discharge Instructions Instructions: Chronic Hypertension (DC) Follow Up With: Dany De DO [Resident] - 07/22/17 10:20 am Additional Instructions: Please follow up with your PCP upon discharge, within 1 week. Take all meds as prescribed and refrain from all alcohol use. Follow up with your AA program. Return to the ED if your symptoms return. - Diet and Activity Activity: increase activity as tolerated, resume usual activities as tolerated Diet: advance to your usual diet - VTE Reasons for not Prescribing Prophylaxis: Treatment not Indicated - Low risk for VTE <Shira Fraser - Last Filed: 07/16/17 20:09> Date of Encounter: 07/16/17 - Discharge Diagnosis (1) Alcohol withdrawal Status: Acute Qualifiers: Complication of substance-induced condition: uncomplicated Qualified Code(s ): F10.230 - Alcohol dependence with withdrawal, uncomplicated (2) HTN (hypertension) Status: Chronic Qualifiers: Hypertension type: essential hypertension Qualified Code(s): I10 - Essential (primary) hypertension (3) DVT prophylaxis Status: Acute (4) Hypokalemia Status: Resolved Hospital course: Mr. Vera is a 36 year old male - Time Spent with Patient Total time spent providing and/or coordinating discharge services: Date of admission: 07/13/17 14:14 Primary care physician: PCP NONE - Constitutional Vitals: Temp Pulse Resp BP Pulse Ox 97.5 F L 68 18 146/92 98 07/15/17 11:23 07/15/17 11:23 07/15/17 11:23 07/15/17 11:23 07/15/17 11:23 - Attending Attestation I performed a history and physical examination of the patient and discussed his/ her management with the resident. I reviewed the residents note and agree with the documented findings and plan of care.
== END 2017-07-15 14:03 | disposition home or self-care (01) | DRG 897 ==
LOC: EMEROO 09:59 → 3ANU 09:59
PROVIDERS: ADMIT Pediatrics; ATTEND Pediatrics

== ENCOUNTER 2018-02-17 19:53 | Inpatient (IN) ==
[2018-02-17 20:56] LABS: Basophils % 0.2 %; Eosinophils % 0.2 %; Hematocrit 39.7 % (37.5-50.1); Hemoglobin 13.2 g/dL (12.9-16.9); Immature Granulocytes % 0.6 % (0-4); Lymphocytes # 0.5 K/mcL (0.6-4.6); Lymphocytes % 4.3 %; Mean Corpuscular HGB Conc 33.2 g/dL (31.6-35.5); Mean Corpuscular Hemoglobin 27.2 pg (28.0-33.3); Mean Corpuscular Volume 81.9 fL (83.0-100.0); Mean Platelet Volume 8.7 fL (9.4-12.4); Monocytes # 0.5 K/mcL (0.0-1.3); Monocytes % 3.7 %; Neutrophils # 11.2 K/mcL (1.6-8.9); Platelet Count 275 K/mcL (140-400); Red Blood Count 4.85 M/mcL (4.19-5.50); Red Cell Distribution Width 12.8 % (11.5-14.5)
[2018-02-17] MEDS ORDERED: Ipratropium/Albuterol Neb 3 ML IH ONE (21:41)
[2018-02-17] MEDS ORDERED: 0.9 % Sodium Chloride 1,000 ML IVC ONE (21:41)
[2018-02-17] MEDS ORDERED: Ibuprofen 600 MG TABLET PO ONE (21:42)
[2018-02-17] MEDS ORDERED: GuaiFENesin/Codeine Oral Soln 5 ML UDC PO ONE (21:42)
--- NOTE | 2018-02-17 21:43 | Emergency Department Note ---
Disposition <Britt Mason - Last Filed: 02/17/18 22:27> <Sachin Soto - Last Filed: 02/18/18 06:23> Clinical Impression: Healthcare-associated pneumonia, ETOH abuse Disposition: Admitted As Inpatient Condition: Fair URI/Sore Throat HPI - General Source: patient, family Mode of arrival: private vehicle Limitations: no limitations Nursing Notes Reviewed: Yes Vital Signs Reviewed: Yes - History of Present Illness Pt Subjective Complaint: fever, cough, rhinorrhea, nasal congestion Onset (ago): day(s) Duration: constant, gradually worsening Improves with: nothing Worsens with: exertion Context: multiple patients with similar complaints Associated symptoms: Reports: fever, headache, rhinorrhea, nasal congestion, cough, chest pain, shortness of breath. Denies: chills, voice changes, myalgias, diaphoresis, sore throat, stiff neck, abdominal pain, nausea, vomiting, diarrhea, dysuria, rash, epistaxis, ear pain Treatments prior to arrival: other <Britt Mason - Last Filed: 02/17/18 22:27> <Sachin Soto - Last Filed: 02/18/18 06:23> - General Chief Complaint: ED Shortness of Breath/Dyspnea Stated Complaint: states I may have bronchitis Time Seen by Provider: 02/17/18 19:59 - History of Present Illness HPI Narrative: 37-year-old male with a history of EtOH abuse, hypertension, clinical impression presents emergency department for evaluation of possible bronchitis or pneumonia. Patient states Thursday he woke up with rhinorrhea, congestion, moist cough and generally just feeling achy, on Thursday patient states he woke up and he felt terribly worse, he had a couple episodes of posttussive emesis. Patient states here she came to the hospital for this however he was severely intoxicated and admitted for detox from EtOH abuse. Patient states he has not had any alcohol since Thursday. Patient states he woke up this morning and it he continues to fall very bad, and today he is having shortness of breath with exertion. Patient states he has been febrile off and on and Thursday had a temperature of 101.2. Patient states he has been treating with TheraFlu, Advil and he just is not getting any better. (Britt Mason) - Related Data Home Medications Medication Instructions Recorded Confirmed Lisinopril [Zestril] 10 mg PO DAILY 09/29/17 02/18/18 Vistaril 50 mg PO 1-3XD 02/18/18 02/18/18 Previous Rx's Medication Instructions Recorded Metoprolol [Lopressor] 12.5 mg PO BID #20 tablet 07/15/17 Aspirin Enteric Coated [Aspirin EC] 81 mg PO DAILY #30 tablet. 02/10/18 Nicotine Patch [Nicoderm] 21 mg TD DAILY #30 patch.[id number] 02/10/18 Allergies Allergy/AdvReac Type Severity Reaction Status Date / Time No Known Allergies Allergy Verified 03/07/17 17:38 All systems ED: reviewed and negative except as stated. Review of Systems: As Per HPI <Britt Mason - Last Filed: 02/17/18 22:27> URI PMH - Past Medical History Medical history: Reports: hypertension, other Surgical history: Reports: non-contributory Psychiatric history: Reports: anxiety, depression, panic disorder - Social History Smoking Status: Current every day smoker Alcohol use: Reports: heavy Drug use: Reports: none <Britt Mason - Last Filed: 02/17/18 22:27> Physical Exam - General Limitations: no limitations General appearance: alert, in no apparent distress - Head Head exam: atraumatic, normocephalic, normal inspection - Eye Eye exam: Present: normal appearance, PERRL, EOMI - ENT ENT exam: normal oropharynx, mucous membranes moist, TM's normal bilaterally - Neck Neck exam: Present: normal inspection, full ROM, trachea midline - Chest Chest inspection: Present: normal inspection, symmetric chest wall rise - Respiratory Respiratory exam: Present: wheezes (lower lobes). Absent: respiratory distress - Expanded Respiratory Exam Location: decreased breath sounds: Left, Right, Lower - Cardiovascular Cardiovascular exam: Present: regular rate, normal rhythm, normal heart sounds - Neurological Exam Neurological exam: Present: alert, oriented X3 - Psychiatric Psychiatric exam: Present: normal affect, normal mood - Skin Skin exam: Present: warm, dry, intact, normal color <Britt Mason - Last Filed: 02/17/18 22:27> Course - Reevaluation(s) Time: 22:27 <Britt Mason - Last Filed: 02/17/18 22:27> Course Narrative: Well-developed male. Patient does not appear toxic. Patient is requiring 3 L of oxygen to maintain his PO2 at 94-96%, patient is not on room air at home. He does not have any respiratory distress, accessory muscle use. Patient is slightly febrile upon arrival, slightly tachycardic. Physical exam reveals expiratory wheezes to the bases, diminished sounds to the bases of the lungs. No retractions, stridor. Patient does have a weak cough. Rest of physical exam is benign. We will obtain basic labs, chest x-ray, give fluids, breathing treatment, steroids and reevaluate. (Britt Mason) - Reevaluation(s) Reevaluation #1: rachel (Britt Mason) Vital Signs Temperature 99.4 F 02/17/18 19:59 Pulse Rate 110 02/17/18 19:59 Respiratory Rate 20 02/17/18 19:59 Blood Pressure 121/82 02/17/18 19:59 O2 Sat by Pulse Oximetry 93 02/17/18 19:59 Temperature 98.6 F 02/18/18 03:54 Pulse Rate 88 02/18/18 03:54 Respiratory Rate 16 02/18/18 03:54 Blood Pressure 139/87 02/18/18 03:54 O2 Sat by Pulse Oximetry 93 02/18/18 03:54 Oxygen Delivery Oxygen Delivery Nasal Cannula Upper Respiratory Infection - Lab Data Result diagrams: 02/17/18 20:27 02/17/18 20:27 <Britt Mason - Last Filed: 02/17/18 22:27> - Lab Data Result diagrams: 02/18/18 04:29 02/18/18 04:29 <Sachin Soto - Last Filed: 02/18/18 06:23> - Lab Data Lab Results 02/17/18 02/17/18 Range/Units 20:27 20:27 WBC 12.3 H (4.3-11.1) K/mcL RBC 4.85 (4.19-5.50) M/mcL Hgb 13.2 (12.9-16.9) g/dL Hct 39.7 (37.5-50.1) % MCV 81.9 L (83.0-100.0) fL MCH 27.2 L (28.0-33.3) pg MCHC 33.2 (31.6-35.5) g/dL RDW 12.8 (11.5-14.5) % Plt Count 275 (140-400) K/mcL MPV 8.7 L (9.4-12.4) fL Immature Gran % 0.6 (0-4) % Seg Neutrophils % 91.0 % Lymphocytes % 4.3 % Monocytes % 3.7 % Eosinophils % 0.2 % Basophils % 0.2 % Neutrophils # 11.2 H (1.6-8.9) K/mcL Lymphocytes # 0.5 L (0.6-4.6) K/mcL Monocytes # 0.5 (0.0-1.3) K/mcL Eosinophils # 0.0 (0.0-0.6) K/mcL Basophils # 0.0 (0.0-0.2) K/mcL Sodium 132 L (136-145) mEq/L Potassium 3.8 (3.5-5.1) mEq/L Chloride 100 (98-107) mEq/L Carbon Dioxide 23 (23-29) mEq/L BUN 13 (6-20) mg/dL Creatinine 0.84 (0.70-1.30) mg/dL Est GFR ( Amer) > 60 (> 60) Est GFR (Non-Af Amer) > 60 (> 60) BUN/Creatinine Ratio 15 (6-26) Glucose 147 H (70-105) mg/dL Calculated Osmolality 277 L (280-300) Calcium 9.1 (8.6-10.3) mg/dL Attestation Statement <Sachin Soto - Last Filed: 02/18/18 06:23> - Attestation Attestation: I, Sachin Soto, examined this patient and my medical decision-making was reviewed with the [employer]/PA/Advanced Practice Nurse/Resident Physician. I agree with the documented findings, disposition and treatment plan as described except to the extent set forth below. 37-year-old male presents emergency Department with concerns of physical therapy in breathing. Patient has history of recent EtOH abuse with possible withdrawal. Patient is tachycardic on initial evaluation with elevated temp. Chest x-ray shows groundglass infiltrates. He will be admitted to the hospitalist for further care and evaluation. Started on antibiotics in the emergency department. (Sachin Soto)
[2018-02-17] MEDS ORDERED: methylPREDNISolone 125 MG/2 ML VIAL IVP ONE (21:50)
[2018-02-17 21:54] LABS: BUN/Creatinine Ratio 15 (6-26); Blood Urea Nitrogen 13 mg/dL (6-20); Calcium 9.1 mg/dL (8.6-10.3); Carbon Dioxide 23 mEq/L (23-29); Chloride 100 mEq/L (98-107); Glucose 147 mg/dL (70-105); Osmolality,Calculated 277 (280-300); Potassium 3.8 mEq/L (3.5-5.1); Sodium 132 mEq/L (136-145); eGFR For Non-African Americans > 60 (> 60)
[2018-02-17] MEDS ORDERED: Piperacillin/Tazobactam 3.375 GM in 0.9 % Sodium Chloride Mini Bag 100 ML IVPB ONE (22:09)
[2018-02-18] MEDS ORDERED: Naloxone 0.4 MG/ML INJ IVP PRN (04:15)
--- NOTE | 2018-02-18 04:23 | Internal Med History&Physical ---
Date of Encounter: 02/18/18 Time of Encounter: 03:40 Internal Medicine - H&P: HPI Chief complaint: Bilateral pneumonia Admitted From: Emergency Dept Plans for Post Hospital Care: Home History of present illness: Mr. Vera is a 37 year old male Patient states he developed flulike symptoms that began 3 days ago. He has had increased shortness of breath as well over the last 24 hours. He says he has a history of having pneumonia and bronchitis in the past. No previous hospitalization for these. He has had increased cough with production of clear sputum with occasional yellow and green sputum. He denies fevers at home as well as sick contacts. He was recently admitted to the hospital about 1 week ago for alcohol intoxication and withdrawal. In the emergency room patient's CBC and CMP were within normal limits. Chest x- ray showed bilateral pneumonia. He was noted to have wheeze on lung exam he was given steroids and breathing treatments. Blood cultures were drawn and he was started on vancomycin and Zosyn due to his recent hospitalization. Upon my evaluation patient states that he is feeling better and breathing easier. He denies nausea and vomiting though sometimes he does have dry heaves after coughing. He denies chest pain, abdominal pain, diarrhea and constipation. He says his last drink of alcohol was about 9 days ago. Past Med Surg Social Fam HX - Past Medical History Medical history: hypertension, other Additional medical history: anxiety,depression Psychiatric history: anxiety, depression, panic disorder - Past Surgical History Surgical History: non-contributory Additional surgical history: uvula bx - Social History Smoking Status: Current every day smoker Smokeless Tobacco Status: No Alcohol use: heavy Drug use: none - Family History Mother Living Status: Still Living Hx Family Cardiac Disorders: Yes (HTN) Hx Family Respiratory Disorders: Yes (COPD) Hx Family Endocrine Disorder: Yes (DM) Father Living Status: Still Living Internal Medicine - H&P: Meds Metoprolol [Lopressor] 12.5 mg PO BID #20 tablet 07/15/17 [Rx] Lisinopril [Zestril] 10 mg PO DAILY 09/29/17 [History] Aspirin Enteric Coated [Aspirin EC] 81 mg PO DAILY #30 tablet. 02/10/18 [Rx] Nicotine Patch [Nicoderm] 21 mg TD DAILY #30 patch.td24 02/10/18 [Rx] Vistaril 50 mg PO 1-3XD 02/18/18 [History] Allergy/AdvReac Type Severity Reaction Status Date / Time No Known Allergies Allergy Verified 03/07/17 17:38 All Systems PM: A 10-system review of systems was performed and is negative for pertinent findings except as documented above in the HPI. - Constitutional Vitals: Temp Pulse Resp BP Pulse Ox 98.6 F 88 16 139/87 93 02/18/18 03:54 02/18/18 03:54 02/18/18 03:54 02/18/18 03:54 02/18/18 03:54 General appearance: Present: cooperative, A&O X 3, pleasant, no acute distress, answers questions appropriately Exam: As above - Head Head exam: Present: normal inspection - Eye Eye exam: Present: EOMI, normal appearance - Respiratory Respiratory exam: Present: decreased breath sounds, wheezes. Absent: r espiratory distress - Cardiovascular Cardiovascular exam: Present: RRR. Absent: diastolic murmur, systolic murmur - GI/Abdominal GI/Abdominal exam: Present: normal bowel sounds, soft. Absent: tenderness - Extremities Exam Extremities exam: Present: warm, radial pulses palpable and symmetrical. Absent: calf tenderness, pedal edema, tenderness - Neurological Exam Neurological exam: Present: no focal deficits, strengths equal and symetr thr oughout. Absent: motor sensory deficit, facial droop, speech deficit - Skin Skin exam: Present: dry, normal color, warm Internal Med - H&P Results - Labs CBC & Chem 7: 02/18/18 04:29 02/18/18 04:29 Labs: Short CBC 02/17/18 Range/Units 20:27 WBC 12.3 H (4.3-11.1) K/mcL Hgb 13.2 (12.9-16.9) g/dL Hct 39.7 (37.5-50.1) % Plt Count 275 (140-400) K/mcL Neutrophils # 11.2 H (1.6-8.9) K/mcL BMP 02/17/18 20:27 Sodium 132 L Potassium 3.8 Chloride 100 Carbon Dioxide 23 BUN 13 Creatinine 0.84 Glucose 147 H Calcium 9.1 - Impressions ITS Impressions Chest X-Ray 02/17/18 20:21 IMPRESSION: Bilateral ground-glass infiltrates. Correlate with any clinical findings of pneumonia D/ / Aldair Castro MD / Aldair Castro MD Interpreting Provider: Aldair Castro MD - Assessment and plan (1) Healthcare-associated pneumonia Current Visit: Yes Status: Acute Assessment and plan: Patient had recent hospitalization for alcohol intoxication and withdrawal. Blood cultures drawn in the ER patient was started on vancomycin and Zosyn. Chest x-ray showed bilateral pneumonia. Continue antibiotics Follow-up blood cultures when available Monitor for worsening signs of infection (2) Nicotine abuse Current Visit: Yes Status: Acute Assessment and plan: Patient requested nicotine patch (3) Alcohol abuse Current Visit: Yes Status: Acute Assessment and plan: Patient's last drink was 9 days ago. We will hold off on CIWA protocol for now, as withdrawal less likely at this time. (4) Anxiety Current Visit: No Status: Acute Assessment and plan: Continue home meds when confirmed (5) Elevated blood sugar Current Visit: Yes Status: Acute Assessment and plan: Patient's blood sugar in the ER initially was 147, which increased to 168 on repeat blood work. Patient denies history of diabetes. Obtain A1c in the morning (6) DVT prophylaxis Current Visit: No Status: Acute Assessment and plan: subcutaneous heparin - Time Spent With Patient Total time spent is greater than 50% in coordination of care (as documented) at patient's floor/unit and/or counseling patient: Greater than 35 minutes
[2018-02-18 05:39] LABS: Hematocrit 41.8 % (37.5-50.1); Hemoglobin 13.7 g/dL (12.9-16.9); Mean Corpuscular HGB Conc 32.8 g/dL (31.6-35.5); Mean Corpuscular Hemoglobin 27.3 pg (28.0-33.3); Mean Corpuscular Volume 83.4 fL (83.0-100.0); Mean Platelet Volume 8.7 fL (9.4-12.4); Platelet Count 281 K/mcL (140-400); Red Blood Count 5.01 M/mcL (4.19-5.50); Red Cell Distribution Width 12.9 % (11.5-14.5)
[2018-02-18 05:59] LABS: BUN/Creatinine Ratio 14 (6-26); Blood Urea Nitrogen 11 mg/dL (6-20); Calcium 9.3 mg/dL (8.6-10.3); Carbon Dioxide 21 mEq/L (23-29); Chloride 104 mEq/L (98-107); Glucose 168 mg/dL (70-105); Osmolality,Calculated 283 (280-300); Potassium 4.5 mEq/L (3.5-5.1); Sodium 135 mEq/L (136-145); eGFR For Non-African Americans > 60 (> 60)
[2018-02-18] MEDS ORDERED: Ipratropium/Albuterol Neb 3 ML IH PRN (07:03)
[2018-02-18 07:20] LABS: Adenovirus Not Detected (Not Detect); Bordetella Pertussis Not Detected (Not Detect); Chlamydophila pneumoniae Not Detected (Not Detect); Coronavirus 229E Not Detected (Not Detect); Coronavirus HKU1 Not Detected (Not Detect); Coronavirus NL63 Not Detected (Not Detect); Coronavirus OC43 Not Detected (Not Detect); Human Metapneumovirus Not Detected (Not Detect); Human Rhinovirus/Enterovirus Not Detected (Not Detect); Influenza A Subtype 2009 H1 Not Detected (Not Detect); Influenza A Untypeable Not Detected (Not Detect); Influenza B Not Detected (Not Detect); Mycoplasma pneumoniae Not Detected (Not Detect); Parainfluenza Virus 1 Not Detected (Not Detect); Parainfluenza Virus 2 Not Detected (Not Detect); Parainfluenza Virus 3 Not Detected (Not Detect); Parainfluenza Virus 4 Not Detected (Not Detect); Respiratory Syncytial Virus Not Detected (Not Detect)
[2018-02-18] MEDS ORDERED: Aminoglycoside Consult 1 EACH MC ONE (08:00)
[2018-02-18] MEDS ORDERED: Piperacillin/Tazobactam 3.375 GM in 0.9 % Sodium Chloride Mini Bag 100 ML IVPB SCH (08:00)
[2018-02-18] MEDS: Nicotine 21 MG PATCH.TD24 TD SCH (09:17)
--- NOTE | 2018-02-18 11:21 | Internal Med Progress Note ---
Hospitalist Progress Note - Encounter Date of Encounter: 02/18/18 Time of Encounter: 11:00 - Subjective Interval History: Mr. Vera is a 37 year old male with a known past medical history of anxiety, depression, chronic tobacco dependence and alcoholic dependence patient who presented to ER with the flulike symptoms from last 3 days. He also complained about a progressively worsening shortness of breath, cough with greenish expectoration. His chest x-ray showed bilateral pneumonia in the ER patient was admitted in the hospital started him on vancomycin and Zosyn. Patient stated he is feeling better. Still having cough with expectoration. Denied any chest pain. Shortness of breath also better - Exam Vitals: Temp Pulse Resp BP Pulse Ox 97.8 F 83 16 119/72 94 02/18/18 07:34 02/18/18 07:34 02/18/18 07:34 02/18/18 07:34 02/18/18 07:34 Exam: Gen: Alert, awake, Oriented to time,place and person Chest: Diminished breath sounds B/L, mild wheezing, Ronchi ++. No crackles, No rales Heart: S1S2+ RRR No murmurs Abd: Soft, NT, BS +, No organomegaly Ext: No edema, pulses are palpable, No calf tenderness Neuro : Benign findings Skin: No rash. - Assessment and Plan (1) SIRS (systemic inflammatory response syndrome) Current Visit: Yes Status: Acute Assessment and Plan: He does meet SIRS criteria with elevated white count, mildly tachycardia and source of infection as pneumonia blood cultures no growth so far (2) Acute respiratory failure with hypoxia Current Visit: Yes Status: Acute Assessment and Plan: Due to pneumonia currently on 2 lit oxygen try to wean him off the oxygen as he tolerates (3) Healthcare-associated pneumonia Current Visit: Yes Status: Acute Assessment and Plan: Reviewed chest x-ray showed bilateral lower lobe pneumonia mostly bacterial pneumonia respiratory viral panel came back is negative will check for step pneumonia and Legionella antigen also concerned about aspiration pneumonia since he has a history of alcohol dependence at this point will switch his antibiotic to Unasyn no need of vancomycin (4) Tobacco dependence Current Visit: Yes Status: Acute Assessment and Plan: Counseled to quit smoking placed on nicotine patch (5) HTN (hypertension) Current Visit: No Status: Chronic Assessment and Plan: Resumed home medications - Time Spent with Patient Total time spent is greater than 50% in coordination of care (as documented) at patient's floor/unit and/or counseling patient: Internal Medicine: Result - Labs CBC & Chem 7: 02/18/18 04:29 02/18/18 04:29 Labs: Short CBC 02/17/18 02/18/18 Range/Units 20:27 04:29 WBC 12.3 H 11.8 H (4.3-11.1) K/mcL Hgb 13.2 13.7 (12.9-16.9) g/dL Hct 39.7 41.8 (37.5-50.1) % Plt Count 275 281 (140-400) K/mcL Neutrophils # 11.2 H (1.6-8.9) K/mcL BMP 02/17/18 02/18/18 20:27 04:29 Sodium 132 L 135 L Potassium 3.8 4.5 Chloride 100 104 Carbon Dioxide 23 21 L BUN 13 11 Creatinine 0.84 0.77 Glucose 147 H 168 H Calcium 9.1 9.3 - Impressions Impressions Chest X-Ray 02/17/18 20:21 IMPRESSION: Bilateral ground-glass infiltrates. Correlate with any clinical findings of pneumonia D/ / Aldair Castro MD / Aldair Castro MD Interpreting Provider: Aldair Castro MD Consult Discharge Plan - Plan Referrals: NONE,PCP [Primary Care Provider] - (5) HTN (hypertension) Qualifiers: Hypertension type: essential hypertension Qualified Code(s): I10 - Essential (primary) hypertension
[2018-02-18] MEDS: Ampicillin/Sulbactam 1,500 MG in 0.9 % Sodium Chloride Mini Bag 100 ML IVPB SCH ×3 (13:30→23:30)
[2018-02-18] MEDS ORDERED: *HR* OxyCODONE/APAP 5/325 TABLET PO PRN (13:45)
[2018-02-18] MEDS: Acetaminophen 325 MG TABLET PO PRN ×2 (14:43→23:29)
[2018-02-18] MEDS: hydrOXYzine pamoate 25 MG CAPSULE PO PRN ×2 (14:43→23:29)
[2018-02-18] MEDS: Ipratropium/Albuterol Neb 3 ML IH SCH ×4 (15:45→23:51)
[2018-02-18 16:02] LABS: Estimated Average Glucose 128 mg/dl; Hemoglobin A1C 6.1 %
[2018-02-18] MEDS: *HR* Heparin 5,000 UNIT/ML VIAL SQ SCH (18:35)
[2018-02-19] MEDS: Melatonin 3 MG TABLET PO PRN ×2 (00:09→21:45)
[2018-02-19 03:46] LABS: Basophils % 0.2 %; Eosinophils % 0.1 %; Hematocrit 34.5 % (37.5-50.1); Immature Platelets 1.6 % (1.1-6.1); Lymphocytes # 1.2 K/mcL (0.6-4.6); Lymphocytes % 8.9 %; Mean Corpuscular HGB Conc 32.8 g/dL (31.6-35.5); Mean Corpuscular Volume 82.5 fL (83.0-100.0); Mean Platelet Volume 8.9 fL (9.4-12.4); Monocytes # 0.5 K/mcL (0.0-1.3); Monocytes % 3.7 %; Neutrophils # 11.4 K/mcL (1.6-8.9); Platelet Count 321 K/mcL (140-400); Red Blood Count 4.18 M/mcL (4.19-5.50); Red Cell Distribution Width 13.2 % (11.5-14.5); Segmented Neutrophils % 86.1 %
[2018-02-19 03:54] LABS: Hemoglobin 11.3 g/dL (12.9-16.9)
[2018-02-19 04:01] LABS: BUN/Creatinine Ratio 17 (6-26); Blood Urea Nitrogen 12 mg/dL (6-20); Calcium 9.1 mg/dL (8.6-10.3); Carbon Dioxide 23 mEq/L (23-29); Chloride 104 mEq/L (98-107); Glucose 143 mg/dL (70-105); Osmolality,Calculated 282 (280-300); Potassium 3.6 mEq/L (3.5-5.1); Sodium 135 mEq/L (136-145); eGFR For Non-African Americans > 60 (> 60)
[2018-02-19] MEDS: Ipratropium/Albuterol Neb 3 ML IH SCH ×3 (04:29→11:26)
[2018-02-19] MEDS: Ampicillin/Sulbactam 1,500 MG in 0.9 % Sodium Chloride Mini Bag 100 ML IVPB SCH ×3 (05:51→17:08)
[2018-02-19] MEDS: *HR* Heparin 5,000 UNIT/ML VIAL SQ SCH ×2 (05:54→19:41)
[2018-02-19] MEDS: hydrOXYzine pamoate 25 MG CAPSULE PO PRN ×2 (06:14→17:07)
[2018-02-19] MEDS ORDERED: Ipratropium Neb 0.5 MG NEBULIZER IH PRN ×2 (07:30→21:58)
[2018-02-19 08:26] LABS: Hematocrit 35.5 % (37.5-50.1); Hemoglobin 11.8 g/dL (12.9-16.9)
[2018-02-19] MEDS ORDERED: Aspirin Enteric Coated 81 MG Tablet PO SCH (09:00)
[2018-02-19] MEDS ORDERED: *HR* LORazepam 2 MG/ML VIAL IVP PRN (09:07)
[2018-02-19] MEDS ORDERED: *HR* Promethazine 25 MG/ML VIAL IVP PRN (09:07)
[2018-02-19] MEDS ORDERED: Folic Acid 1 MG TABLET PO SCH (09:15)
[2018-02-19] MEDS ORDERED: Thiamine (B-1) 100 MG TABLET PO SCH (09:15)
[2018-02-19] MEDS ORDERED: Vitamin B Complex/Vit C/Vit E 1 EACH TABLET PO SCH (09:15)
[2018-02-19] MEDS: Nicotine 21 MG PATCH.TD24 TD SCH (09:31)
[2018-02-19] MEDS: Acetaminophen 325 MG TABLET PO PRN ×2 (09:31→17:08)
[2018-02-19] MEDS: *HR* LORazepam 2 MG/ML VIAL IVP PRN ×3 (09:38→17:08)
--- NOTE | 2018-02-19 14:47 | Internal Med Progress Note ---
<Michell Galvan - Last Filed: 02/19/18 15:52> Hospitalist Progress Note - Encounter Date of Encounter: 02/19/18 - Exam Vitals: Temp Pulse Resp BP Pulse Ox 98.1 F 117 18 125/73 92 02/19/18 11:35 02/19/18 11:35 02/19/18 11:35 02/19/18 11:35 02/19/18 11:35 - Assessment and Plan (1) HTN (hypertension) Current Visit: No Status: Chronic (2) Healthcare-associated pneumonia Current Visit: Yes Status: Acute (3) SIRS (systemic inflammatory response syndrome) Current Visit: Yes Status: Acute (4) Tobacco dependence Current Visit: Yes Status: Acute (5) Acute respiratory failure with hypoxia Current Visit: Yes Status: Acute - Time Spent with Patient Total time spent is greater than 50% in coordination of care (as documented) at patient's floor/unit and/or counseling patient: Internal Medicine: Result - Labs CBC & Chem 7: 02/19/18 07:52 02/19/18 03:13 Labs: Short CBC 02/19/18 02/19/18 Range/Units 03:13 07:52 WBC 13.2 H (4.3-11.1) K/mcL Hgb 11.3 L D 11.8 L (12.9-16.9) g/dL Hct 34.5 L 35.5 L (37.5-50.1) % Plt Count 321 (140-400) K/mcL Neutrophils # 11.4 H (1.6-8.9) K/mcL BMP 02/19/18 03:13 Sodium 135 L Potassium 3.6 Chloride 104 Carbon Dioxide 23 BUN 12 Creatinine 0.71 Glucose 143 H Calcium 9.1 Consult Discharge Plan - Plan Referrals: NONE,PCP [Primary Care Provider] - - Attending Attestation I examined this patient and my medical decision-making was reviewed with the Resident Physician Dr Rodriguez. I agree with the documented findings, disposition and treatment plan as described except to the extent set forth below. Mr Vera is currently admitted with acute hypoxic resp failure 2/2 BL pna He has anxiety, chronic etoh use and recent hospital admission with etoh intoxication and w/d awake, pleasant, has had tachycardia and anxiety overnight and this morning. + palpitations, worse with nebs treatments, states he is worried about his pna and dying and had a panic attack that elevated his bp. denies morrell, vision changes, chest pain or pressure. no sob on o2 nc, no orthopnea, pnd or le edema. he d enies etoh use since last discharge. gen- alert, awake,appears stated age, calm apeparing cv- reg rate and rhythm, normal s1,s2, no murmurs appreciated lungs- diminishe throughout posterior bergeron, worst at bases, no wheezing, rhonchi or crackles, normal resp effort on o2 nc abd- soft, non tender, non distended, + bs neuro- AAOx3, CN grossly intact, no hand tremor Acure Hypoxic resp failure 2/2 bilateral pna- prn o2, nebs, pna tx Bilateral Pna, organsim uk, recent hospitalization and etoh use and recent intoxicaiton w/d- was admitted to obs unit, initially vanc + zosyn to cover hcap, then changed to unasyn, which will cover if he could have aspirated--cont iv abx, nebs changed to xopenex for anxiety wth albuterol Etoh use- denying, but cannot be certain, given he would now be in window for etoh w/d and has had tachycardia and anxiety, will error on side of caution and treat with ciwa, cont to monitor Anxiety- follows with psych outpt, cont prozac and vistaril Prediabetes A1C 6.1- diet/lifestyle modifications, outpt fu HTN- cont lisinopril, adjust as needed, outpt fu required TAchycardia- sinus tach, oral KCL, mag at goal, change to xopenex nebs, ciwa scale, home anxiety meds Acute anemia- etiolgy uk as no evidence of bleeding, may be related to IVFs, repeat now uptrending, cont to monitor, limit lab draws further diagnoses and treatment as documented by resident <Farhad Rodriguez - Last Filed: 02/20/18 04:58> Hospitalist Progress Note - Encounter Date of Encounter: 02/19/18 Time of Encounter: 10:00 - Subjective Interval History: 02/19 Patient is seen and evaluated at bedside. He denies fevers, his breathing is currently even, his heartrate is in the 110s, he has no tremors or agitation. He answers questions thoroughly and follows commands. Interval history: PMH hypertension and alcohol abuse, history of withdrawing from alcohol, states he typically drinks an 18 pack a day but that he "quit 9 days ago," who presents with 3 days of flu-like symptoms and increased shortness of breath. ED CXR showed bilateral PNA. Patient's blood cultures drawed and started on vanc zosyn; then switched to ampicillin/sulbactam. Based on alcohol usage, history of withdrawal, he was started on CIWA. - Exam Vitals: Temp Pulse Resp BP Pulse Ox 98.1 F 117 18 125/73 92 02/19/18 11:35 02/19/18 11:35 02/19/18 11:35 02/19/18 11:35 02/19/18 11:35 Exam: Gen: Alert, awake, Oriented to time,place and person Chest: Diminished breath sounds B/L, mild wheezing, significant rhonchi Heart: S1S2+ tachy No murmurs Abd: Soft, NT, BS +, No organomegaly Ext: No edema, pulses are palpable, No calf tenderness Neuro : tachycardic, no focal deficits Skin: No rash. - Assessment and Plan (1) Acute respiratory failure with hypoxia Current Visit: Yes Status: Acute Assessment and Plan: Requiring 3L at time of evaluation, increased from 2L; titrate when appropriate xopenex nebulizer in setting of tachycardia treating PNA with ampicillin/sulbactam, following cultures (2) Alcohol abuse Current Visit: Yes Status: Acute Assessment and Plan: 18 pack a day per history today; reports he last drank/quit 9 days ago CIWA protocol, timeframe uncertain for his period of abstinence elevated HR and increased BP, no tremor or agitation (3) HTN (hypertension) Current Visit: No Status: Chronic Assessment and Plan: acute on chronic Lopressor 5mg IVP once, then Lopressor 2.5mg IVP q6h prn; hold parameter <120 Likely increased BPs in setting of beginnings of withdrawal, CIWA protocol DVT Prophylaxis: sq heparin - Time Spent with Patient Total time spent is greater than 50% in coordination of care (as documented) at patient's floor/unit and/or counseling patient: Internal Medicine: Result - Labs CBC & Chem 7: 02/20/18 03:52 02/20/18 03:52 Labs: Short CBC 02/19/18 02/19/18 Range/Units 03:13 07:52 WBC 13.2 H (4.3-11.1) K/mcL Hgb 11.3 L D 11.8 L (12.9-16.9) g/dL Hct 34.5 L 35.5 L (37.5-50.1) % Plt Count 321 (140-400) K/mcL Neutrophils # 11.4 H (1.6-8.9) K/mcL BMP 02/19/18 03:13 Sodium 135 L Potassium 3.6 Chloride 104 Carbon Dioxide 23 BUN 12 Creatinine 0.71 Glucose 143 H Calcium 9.1 <Michell Galvan - Last Filed: 02/19/18 15:52> (1) HTN (hypertension) Qualifiers: Hypertension type: essential hypertension Qualified Code(s): I10 - Essential (primary) hypertension <Farhad Rodriguez - Last Filed: 02/20/18 04:58> (3) HTN (hypertension) Qualifiers: Hypertension type: essential hypertension Qualified Code(s): I10 - Essential (primary) hypertension
[2018-02-19] MEDS: Levalbuterol Neb 0.63 MG/3 ML IH SCH ×2 (16:12→22:01)
--- NOTE | 2018-02-19 16:48 | Electrocardiograph Report ---
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
[2018-02-19] MEDS ORDERED: Isovue-370 500 ML INFUS..BTL IV ONE (17:39)
[2018-02-19] MEDS ORDERED: *HR* Metoprolol 5 MG/5 ML VIAL IVP ONE ×2 (17:48→23:47)
[2018-02-19] MEDS ORDERED: *HR* Metoprolol 5 MG/5 ML VIAL IVP PRN ×2 (17:55→23:48)
[2018-02-19] MEDS ORDERED: Thiamine (B-1) 100 MG, Folic Acid 1 MG, MVI, adult with vitamin K 10 ML in 0.9 % Sodi... IVPB SCH ×2 (18:00→20:00)
[2018-02-19] MEDS ORDERED: Furosemide 20 MG/2 ML VIAL IVP ONE (21:54)
[2018-02-19] MEDS ORDERED: *HR* LORazepam 2 MG/ML VIAL IVP ONE (23:46)
[2018-02-20] MEDS: Ampicillin/Sulbactam 1,500 MG in 0.9 % Sodium Chloride Mini Bag 100 ML IVPB SCH (00:21)
[2018-02-20] MEDS: *HR* LORazepam 2 MG/ML VIAL IVP PRN ×3 (00:35→03:28)
[2018-02-20 04:08] LABS: Basophils % 0.3 %; Eosinophils # 0.1 K/mcL (0.0-0.6); Eosinophils % 0.4 %; Hematocrit 36.1 % (37.5-50.1); Hemoglobin 11.9 g/dL (12.9-16.9); Immature Granulocytes % 0.7 % (0-4); Lymphocytes # 1.1 K/mcL (0.6-4.6); Lymphocytes % 8.2 %; Mean Corpuscular Hemoglobin 27.4 pg (28.0-33.3); Mean Platelet Volume 8.6 fL (9.4-12.4); Monocytes # 0.6 K/mcL (0.0-1.3); Monocytes % 4.4 %; Neutrophils # 11.8 K/mcL (1.6-8.9); Platelet Count 286 K/mcL (140-400); Red Blood Count 4.35 M/mcL (4.19-5.50); Red Cell Distribution Width 12.9 % (11.5-14.5)
[2018-02-20 04:18] LABS: ABG Base Excess 2 mEq/L (-2 to 3); ABG HCO3 28 mEq/L (21-27); ABG Oxygen Saturation 93 % (95-98); ABG PCO2 50 mmHg (35-45); ABG PH 7.35 pH Units (7.32-7.45); ABG PO2 72 mmHg (85-104); ABG TCO2 30 mEq/L (20-26)
[2018-02-20] MEDS ORDERED: Acetaminophen 325 MG TABLET PO PRN (04:27)
[2018-02-20] MEDS ORDERED: *HR* Metoprolol 5 MG/5 ML VIAL IVP PRN (04:27)
[2018-02-20] MEDS ORDERED: Naloxone 0.4 MG/ML INJ IVP PRN (04:27)
[2018-02-20] MEDS: Levalbuterol Neb 0.63 MG/3 ML IH SCH ×4 (04:27→22:11)
[2018-02-20] MEDS ORDERED: *HR* LORazepam 2 MG/ML VIAL IVP PRN ×3 (04:27)
[2018-02-20] MEDS ORDERED: Ipratropium Neb 0.5 MG NEBULIZER IH PRN (04:27)
[2018-02-20 04:28] LABS: Alanine Aminotransferase 18 Units/L (7-52); Albumin 3.8 g/dL (3.5-5.7); Albumin/Globulin Ratio 1.1 (1.1-2.2); Alkaline Phosphatase 81 Units/L (34-104); Aspartate Amino Transferase 34 Units/L (13-39); BUN/Creatinine Ratio 17 (6-26); Bilirubin,Total 0.7 mg/dL (0.3-1.0); Blood Urea Nitrogen 10 mg/dL (6-20); Calcium 9.3 mg/dL (8.6-10.3); Carbon Dioxide 26 mEq/L (23-29); Chloride 101 mEq/L (98-107); Globulin 3.6 g/dL (2.4-3.5); Glucose 109 mg/dL (70-105); Osmolality,Calculated 280 (280-300); Potassium 4.1 mEq/L (3.5-5.1); Sodium 135 mEq/L (136-145); Total Protein 7.4 g/dL (6.4-8.9); eGFR For Non-African Americans > 60 (> 60)
[2018-02-20] MEDS ORDERED: Dexmedetomidine HCl 400 MCG/100 ML MLS IVC ONE (04:29)
[2018-02-20] MEDS ORDERED: Dexmedetomidine HCl 400 MCG/100 ML MLS IVC SCH (04:30)
--- NOTE | 2018-02-20 05:21 | Event Note ---
Date of Encounter: 02/20/18 Time of Encounter: 04:31 Pt was noted to have significantly increased work of breathing throughout the night. He was transferred to [facility] on the evening of 02/19 for increased work of breathing likely 2/2 bilateral pneumonia. A CTA chest was obtained, negative for PE, but diffuse dense consolidations interstitial PNA vs ARDS was seen. Around 20:30 pt was placed on Oxy mask for decreased SpO2 in the low 80s. Pt was noted to be tachypnic at that time, but would slow his respiratory rate when coached to relax. Breath sounds improved significantly after breathing treatment. HR has been persistently elevated in the 110s. Pt was initially afebrile, but temp at 04:00 was elevated at 100.9. Pt is also on CINC protocol for hx of alcohol use with varying reports on when pt's last drink was. Pt has been complaining of insomnia since admission. Pt became increasingly agitated as manifested by pulling off the Oxy-mask, removing the pulse ox monitor, pulling out his IV, and removing his clothes. At the 02:00 CIWA check this morning, pt was found to be talking to himself and speaking nonsense, he then became disoriented to time. At the 03:00 CIWA check, pt continued to utter nonsensical phrases, and was disoriented to time and person. He remained tachypnic, tachycardic, and hypertensive throughout, but was no longer able to be coached to slow down his respiratory rate. A stat ABG had been ordered earlier in the night, but had not been collected. Pt was transferred to ICU for respiratory failure with hypoxia. The ABG was drawn on arrival in the ICU and pt was placed on BiPAP.
[2018-02-20] MEDS: Dexmedetomidine HCl 400 MCG/100 ML MLS IVC SCH ×6 (05:24→23:59)
[2018-02-20] MEDS: *HR* Heparin 5,000 UNIT/ML VIAL SQ SCH ×2 (05:36→17:13)
[2018-02-20] MEDS ORDERED: Artificial Tears SOLN 15 ML BOTTLE BOTH EYES PRN (05:41)
--- NOTE | 2018-02-20 05:51 | Event Note ---
Date of Encounter: 02/20/18 Time of Encounter: 04:40 Patient arrived to the ICU from floor with Drs. Bennett and Derrick. At that time he appeared to be in severe respiratory distress and was respiring at 50-60 times per minute. Auscultation of the patient's lungs at that time demonstrated severe inspiratory and expiratory wheezes with very little air flow as well as some rhonchi and superimposed. The decision was made at that time to place the patient on BiPAP to try to alleviate some of his respiratory distress while also placing the patient on a Precedex drip. We titrated the Precedex drip to 1.4, however the patient still continued to breathe at a rate of 50-60 breaths per minute, and remained in severe respiratory distress. After approximately 10 minutes, it was clear that the patient was not improving at all so the decision was made to intubate the patient. Proper materials were gathered and the patient was intubated as per separate procedure note. We attempted to first use Versed and Precedex for sedation, however this was not sufficient so we did switch to propofol which additionally was insufficient. The patient did suffer complication of aspiration which was somewhat concerning, however he is currently on vancomycin and Zosyn. We have been able to successfully suction a significant amount of material. In order to achieve proper sedation of the patient we have transition to Versed and fentanyl drips. The patient has at this time stabilized to a large degree and is now breathing at a rate in the 2 0's, however we have concerns for developing ARDs due to imaging, clinical picture, and elevated peak and plateau pressures following intubation. We will aim for Tidal volumes ~4-6 mL/kg ideal body weight and consult critical care for management. At this time, the patient appears to have acceptable oxyenation and ventilation. Repeat ABG pending.
[2018-02-20 06:07] LABS: ABG Base Excess 1 mEq/L (-2 to 3); ABG HCO3 26 mEq/L (21-27); ABG Oxygen Saturation 97 % (95-98); ABG PCO2 44 mmHg (35-45); ABG PH 7.38 pH Units (7.32-7.45); ABG PO2 96 mmHg (85-104); ABG TCO2 27 mEq/L (20-26); Blood Gas Modality ASSIST CONTROL; Blood Gas PEEP 5 cm H2O; Blood Gas Respiration Rate 24; Blood Gas VT 400 cc
--- NOTE | 2018-02-20 06:13 | Procedure Note ---
Date of procedure: 02/20/18 Pre-op diagnosis: Acute respiratory failure Post-op diagnosis: same Procedure: Procedure: Endotracheal intubation Date: 02/20/18 Time: 0450 Interior Design Teacher: Yolanda Attending: Sabrina Indication: Acute Respiratory Failure The patient was placed in supine position. All equipment was checked and operational before beginning the procedure. Sedation was obtained using precedex drip at 1.4 and 7mg Versed initially. Patient was paralyzed using 20mg Etomidate. The patient was not responsive at this time, however he was not relaxed and continue to move. I did say to give another 10 mg of etomidate at this time at which time the patient came easy to bag with a BVM. The first attempt was made to intubate by myself using an 8' ET tube by visualizing the cords with a Glidescope, however the patient became agitated and the paralysis was insufficient. The patient did experience vomiting and was turned on his side with suction. He was then bagged successfully until his oxygen levels were sufficient. Another 10 mg of etomidate were given and the patient was started on propofol drip. The patient was given another 10mg etomidate and his cords were again visualized using Fransico Scrip however he again experienced vomiting is turned on his side with suction. The patient was again easily bagged while his SPO2 raise to the high 90s again. At this time I determined that it would be appropriate to allow one of the KIL[employer] CAR REPAIRER is present at that time to attempt intubation. Mckay Bobby, CAROL ANN was present at the head of the bed and was prepared to assist. I ordered 100mg of succinylcholine for paralysis and a third attempt was made using Fransico scope at which point the patient was sufficiently paralyzed and an 8 ET tube was successfully passed through the cords without complication. There was adequate color change noted on capnometry, and the lung sounds were auscultated bilaterally by myself. The ET tube was secured in place and an OG tube was passed into the stomach prior to a STAT CXR and KUB film being placed, which both demonstrated appropriate placement of tubes. Anesthesia: IV sedation Surgeon: Sonu Guerrero Was there an assistant prosecuting attorney present: Yes Gameplay Engineer: Mckay Bobby (Third intubation attempt, successful) Estimated blood loss (cc): 0 Specimen: n/a Pathology: none sent Condition: critical Disposition: ICU
[2018-02-20] MEDS: FentaNYL (PF) 1,000 MCG in 0.9 % Sodium Chloride 80 ML IVC SCH ×2 (06:14→18:32)
[2018-02-20] MEDS: Pantoprazole 40 MG VIAL IVP SCH (06:26)
[2018-02-20] MEDS ORDERED: methylPREDNISolone 125 MG/2 ML VIAL IVP ONE (07:09)
--- NOTE | 2018-02-20 07:20 | Pulmonology Consult Note ---
<Jesu Montes W - Last Filed: 02/20/18 11:12> Date of Encounter: 02/20/18 Time of Encounter: 11:12 Medications and Allergies Lisinopril [Zestril] 10 mg PO DAILY 09/29/17 [History] Aspirin Enteric Coated [Aspirin EC] 81 mg PO DAILY #30 tablet. 02/10/18 [Rx] FLUoxetine HCl [PROzac] 60 mg PO DAILY 02/18/18 [History] Metoprolol [Lopressor] 12.5 mg PO BID 02/18/18 [History] hydrOXYzine pamoate [HydrOXYzine Pamoate] 50 mg PO TID PRN 02/18/18 [History] Allergy/AdvReac Type Severity Reaction Status Date / Time No Known Allergies Allergy Verified 03/07/17 17:38 All Systems: The remainder of the systems were reviewed and are negative Physical Examination Vital Signs: Vital Signs, Last 4 Hours Temp Pulse Resp BP Pulse Ox 02/20/18 07:25 98.2 F 02/20/18 06:40 29 134/97 95 02/20/18 06:00 76 31 126/90 95 02/20/18 05:40 28 118/71 96 02/20/18 05:00 100.9 F H 110 36 143/94 96 02/20/18 04:27 55 162/110 95 02/20/18 04:00 100.9 F H 117 48 149/104 92 Ventilator Settings Ventilator Settings: Ventilator Settings, Last 8 Hours Ventilator Tidal Volume 400 Setting Ventilator Tidal Volume 400 Setting Ventilator Tidal Volume 400 Setting Ventilator Tidal Volume 400 Setting Ventilator Respiratory Rate 24 Setting Ventilator Respiratory Rate 24 Setting Ventilator Respiratory Rate 24 Setting Ventilator Respiratory Rate 24 Setting Actual Respiratory Rate 29 Actual Respiratory Rate 28 Positive End Expiratory 5 Pressure Positive End Expiratory 5 Pressure Positive End Expiratory 5 Pressure Positive End Expiratory 5 Pressure Peak Inspiratory Airway 44 Pressure Peak Inspiratory Airway 46 Pressure Results - Laboratory Findings CBC and BMP: 02/20/18 03:52 02/20/18 03:52 ABG ABG pH 7.38 pH Units (7.32-7.45) 02/20/18 06:05 ABG pCO2 44 mmHg (35-45) 02/20/18 06:05 ABG pO2 96 mmHg (85-104) 02/20/18 06:05 ABG O2 Saturation 97 % (95-98) 02/20/18 06:05 Abnormal lab findings: Abnormal lab results WBC 13.7 K/mcL (4.3-11.1) H 02/20/18 03:52 Hgb 11.9 g/dL (12.9-16.9) L 02/20/18 03:52 Hct 36.1 % (37.5-50.1) L 02/20/18 03:52 MCH 27.4 pg (28.0-33.3) L 02/20/18 03:52 MPV 8.6 fL (9.4-12.4) L 02/20/18 03:52 Neutrophils # 11.8 K/mcL (1.6-8.9) H 02/20/18 03:52 ABG Total CO2 27 mEq/L (20-26) H 02/20/18 06:05 Sodium 135 mEq/L (136-145) L 02/20/18 03:52 Creatinine 0.60 mg/dL (0.70-1.30) L 02/20/18 03:52 Glucose 109 mg/dL (70-105) H 02/20/18 03:52 POC Glucose 121 mg/dL (70-99) H 02/20/18 04:15 Hemoglobin A1c 6.1 % (-5.6) H 02/18/18 07:02 Globulin 3.6 g/dL (2.4-3.5) H 02/20/18 03:52 - Microbiology Findings Microbiology Findings: Microbiology, Last 48 Hours 02/20/18 04:15 Legionella Antigen - Final Urine,Clean Catch Streptococcus pneumoniae Antigen (M - Final 02/19/18 08:00 Legionella Antigen - Final Urine,Clean Catch Streptococcus pneumoniae Antigen (M - Final - Clinical Findings Intake & Output: Intake & Output 02/19/18 02/19/18 02/20/18 15:59 23:59 07:59 Intake Total 340 / 340 340 / 340 1160.2 / 1160.2 Output Total 450 / 450 800 / 800 Balance 340 / 340 -110 / -110 360.2 / 360.2 Weight 84.6 kg Consult Discharge Plan - Plan Referrals: NONE,PCP [Primary Care Provider] - - Attending Attestation I examined this patient and my medical decision-making was reviewed with the Resident Physician. I agree with the documented findings, disposition and treatment plan as described except to the extent set forth below. We independently had [id number] contact with the patient I spent 35min of Critical Care time with this patient. It involved decision making of high complexity to assess, manipulate, and support vital organ system failure and/or to prevent further life threatening deterioration of the p atient's condition. The time involved in the performance of separately reportable procedures was not counted toward critical care time. Patient seen and examined at bedside Labs, radiology, chart personally reviewed. Management was reviewed during multidisciplinary critical care rounds. 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 He is received IV supplementation of mineral and electrolytes for this. He will need to continue to be deeply sedated for ventilator interaction Pulm: Acute hypoxic hypercapnic respiratory failure secondary to pneumonia likely complicated by ARDS intubated after difficult intubation with multiple attempts acceptable gas exchange today but the peak inspiratory pressures remain elevated likely secondary to ventilator dyssynchrony from stacking we have adjusted ventilator to accommodate this will need to more deeply sedate the patient. I have increased his PEEP for management of ARDS and will continue low tidal volume ventilatory strategy. I have given IV glucocorticoids for early ARDS/pneumonia and we will schedule bronchodilators as well as patient has an extensive smoking history Cards: Blood pressure monitored and stable GI: GI prophylaxis given Nutrition: Nothing by mouth for now Renal: UOP Monitored, Cont to Trend sCr and monitor Electrolytes. ID: Suspected pneumonia possibly aspiration cultures pending respiratory infection panel is negative at this time continue broad-spectrum antibiotics planned to de-escalate based upon culture and sensitivities Heme/Onc: DVT prophylaxis given Endo: Glucose Monitored Integ/MSK: Skin Care per routine ICU Nursing Protocol to prevent ulcers. Lines: All lines examined without evidence of infection : Dispo: Remain in ICU for critical illness CODE: Full code I updated the patient's next of kin his mother at bedside and we are in tried to be in contact with his as well overall prognosis is guarded <Carina Agustin - Last Filed: 02/20/18 15:05> Date of Encounter: 02/20/18 Assessment and Plan (1) Acute respiratory failure with hypoxia Current Visit: Yes Status: Acute Likely secondary to pneumonia complicated by ARDS Patient is intubated under deep sedation. Start IV steroids Continue bronchodilators. See plan#2 (2) Healthcare-associated pneumonia Current Visit: Yes Status: Acute Patient presented with cough. Possibly aspiration. Recent hospitalization. Respiratory panel was negative. Legionella and Strep pneumoniae are negative. Blood culture drawn 02/17 x2 sets are NGTD. CXR 02/17 showed bilateral ground glass opacities. CTA chest shows diffuse alveolar damage, multifocal dense consolidations. Could represent acute interstitial pneumonia vs ARDS. Continue day 3 of vancomycin. Continue day 4 of zosyn. (3) Acute respiratory distress syndrome (ARDS) Current Visit: Yes Status: Acute Likely secondary to bilateral pneumonia. CTA chest shows diffuse alveolar damage, multifocal dense consolidations. Could represent acute interstitial pneumonia vs ARDS. Patient is mechanically ventilated. Start IV steroids. (4) Alcohol withdrawal Current Visit: No Status: Acute History of heavy alcohol use, 1-2 cases of beer daily. [facility] protocol. Thiamine/folate/multivitamins. Qualifiers: Complication of substance-induced condition: uncomplicated Qualified Code(s): F10.230 - Alcohol dependence with withdrawal, uncomplicated (5) Tobacco dependence Current Visit: Yes Status: Acute Nicotine patch (6) DVT prophylaxis Current Visit: No Status: Acute heparin SQ History of Present Illness Consult date: 02/20/18 History of present illness: 37 year old male with medical history of HTN, anxiety, alcohol abuse, and tobacco dependence. Heavy alcohol use 1-2 cases of beer daily for 2 years. Patient had recent admission on 02/10/18 for detox from alcohol abuse. Patient presented to the ED on 02/17 for fever, cough, and nasal congestion. On presentation, he was apparently severely intoxicated. Last drink on 02/16. CXR showed ground glass opacities and patient was admitted for HCAP and alcohol intoxication/withdrawal. Patient was treated with breathing treatments, steroid, and vanc/zosyn. Last night, patient had increasing respiratory distress with respiratory rate in 50-60s. CTA chest showed increased bilateral opacities, concerning for ARDS. Patient was brought to ICU. Placed on precedex and BiPap but patient did not improve. Patient was intubated. Patient was difficult to sedate and required fentanyl, versed, propofol, and precedex. Patient seen and examined. Patient is intubated under sedation. Patient cannot provide any history or ROS. Past Med Surg Social Fam HX - Past Medical History Medical history: hypertension, other Additional medical history: anxiety,depression Psychiatric history: anxiety, depression, panic disorder - Past Surgical History Surgical History: non-contributory Additional surgical history: uvula bx - Social History Smoking Status: Current every day smoker Smokeless Tobacco Status: No Alcohol use: heavy Drug use: none - Family History Mother Living Status: Still Living Hx Family Cardiac Disorders: Yes (HTN) Hx Family Respiratory Disorders: Yes (COPD) Hx Family Endocrine Disorder: Yes (DM) Father Living Status: Still Living ROS unobtainable: due to mental status All Systems: The remainder of the systems were reviewed and are negative Physical Examination Vital Signs: Vital Signs, Last 4 Hours Temp Pulse Resp BP Pulse Ox 02/20/18 06:40 29 134/97 95 02/20/18 06:00 76 31 126/90 95 02/20/18 05:40 28 118/71 96 02/20/18 05:00 100.9 F H 110 36 143/94 96 02/20/18 04:27 55 162/110 95 02/20/18 04:00 100.9 F H 117 48 149/104 92 02/20/18 03:27 98.7 F 117 50 152/97 91 General appearance: no acute distress, other (under sedation) Neck: supple Effort: normal Auscultation: bilateral: clear Cardiovascular: regular rate and rhythm Gastrointestinal: normoactive bowel sounds, soft, non-tender Integumentary: normal Extremities: no cyanosis, no edema, no clubbing, pink and warm Musculoskeletal: no deformities unable to assess due to mental status Ventilator Settings Ventilator Settings: Ventilator Settings, Last 8 Hours Ventilator Tidal Volume 400 Setting Ventilator Tidal Volume 400 Setting Ventilator Tidal Volume 400 Setting Ventilator Tidal Volume 400 Setting Ventilator Respiratory Rate 24 Setting Ventilator Respiratory Rate 24 Setting Ventilator Respiratory Rate 24 Setting Ventilator Respiratory Rate 24 Setting Actual Respiratory Rate 29 Actual Respiratory Rate 28 Positive End Expiratory 5 Pressure Positive End Expiratory 5 Pressure Positive End Expiratory 5 Pressure Positive End Expiratory 5 Pressure Peak Inspiratory Airway 44 Pressure Peak Inspiratory Airway 46 Pressure Results - Laboratory Findings CBC and BMP: 02/20/18 13:46 02/20/18 03:52 ABG ABG pH 7.38 pH Units (7.32-7.45) 02/20/18 06:05 ABG pCO2 44 mmHg (35-45) 02/20/18 06:05 ABG pO2 96 mmHg (85-104) 02/20/18 06:05 ABG O2 Saturation 97 % (95-98) 02/20/18 06:05 Abnormal lab findings: Abnormal lab results WBC 13.7 K/mcL (4.3-11.1) H 02/20/18 03:52 Hgb 11.9 g/dL (12.9-16.9) L 02/20/18 03:52 Hct 36.1 % (37.5-50.1) L 02/20/18 03:52 MCH 27.4 pg (28.0-33.3) L 02/20/18 03:52 MPV 8.6 fL (9.4-12.4) L 02/20/18 03:52 Neutrophils # 11.8 K/mcL (1.6-8.9) H 02/20/18 03:52 ABG Total CO2 27 mEq/L (20-26) H 02/20/18 06:05 Sodium 135 mEq/L (136-145) L 02/20/18 03:52 Creatinine 0.60 mg/dL (0.70-1.30) L 02/20/18 03:52 Glucose 109 mg/dL (70-105) H 02/20/18 03:52 POC Glucose 121 mg/dL (70-99) H 02/20/18 04:15 Hemoglobin A1c 6.1 % (-5.6) H 02/18/18 07:02 Globulin 3.6 g/dL (2.4-3.5) H 02/20/18 03:52 - Microbiology Findings Microbiology Findings: Microbiology, Last 48 Hours 02/20/18 04:15 Legionella Antigen - Final Urine,Clean Catch Streptococcus pneumoniae Antigen (M - Final 02/19/18 08:00 Legionella Antigen - Final Urine,Clean Catch Streptococcus pneumoniae Antigen (M - Final - Clinical Findings Intake & Output: Intake & Output 02/19/18 02/19/18 02/20/18 15:59 23:59 07:59 Intake Total 340 / 340 340 / 340 1061.2 / 1061.2 Output Total 450 / 450 500 / 500 Balance 340 / 340 -110 / -110 561.2 / 561.2 Weight 84.6 kg
[2018-02-20] MEDS: Piperacillin/Tazobactam 3.375 GM in 0.9 % Sodium Chloride Mini Bag 100 ML IVPB SCH ×3 (07:40→23:09)
[2018-02-20] MEDS: Chlorhexidine Rinse 15 ML MOUTHWASH MM SCH ×2 (07:41→20:21)
[2018-02-20] MEDS: Nicotine 21 MG PATCH.TD24 TD SCH (07:41)
[2018-02-20] MEDS: Artificial Tears SOLN 15 ML BOTTLE BOTH EYES SCH ×5 (07:47→23:11)
[2018-02-20] MEDS ORDERED: Piperacillin/Tazobactam 3.375 GM in 0.9 % Sodium Chloride Mini Bag 100 ML IVPB SCH (08:00)
[2018-02-20] MEDS ORDERED: FLUoxetine 20 MG CAPSULE PO SCH (09:00)
[2018-02-20] MEDS ORDERED: Acetaminophen IV 1,000 MG/100 ML INFUS..BTL IVPB ONE (13:59)
[2018-02-20 14:11] LABS: Basophils % 0.2 %; Eosinophils % 0.1 %; Hematocrit 36.2 % (37.5-50.1); Hemoglobin 11.9 g/dL (12.9-16.9); Immature Granulocytes % 1.1 % (0-4); Lymphocytes # 0.4 K/mcL (0.6-4.6); Lymphocytes % 4.5 %; Mean Corpuscular HGB Conc 32.9 g/dL (31.6-35.5); Mean Corpuscular Hemoglobin 27.5 pg (28.0-33.3); Mean Corpuscular Volume 83.8 fL (83.0-100.0); Mean Platelet Volume 8.9 fL (9.4-12.4); Monocytes # 0.2 K/mcL (0.0-1.3); Monocytes % 2.6 %; Neutrophils # 8.2 K/mcL (1.6-8.9); Platelet Count 306 K/mcL (140-400); Red Blood Count 4.32 M/mcL (4.19-5.50); Red Cell Distribution Width 13.2 % (11.5-14.5); Segmented Neutrophils % 91.5 %
[2018-02-20 14:13] LABS: VBG Ionized Calcium 1.21 mmol/L (1.15-1.35)
[2018-02-20 14:29] LABS: Magnesium 2.6 mg/dL (1.6-2.6); Phosphorous 2.9 mg/dL (2.7-4.5)
[2018-02-20] MEDS ORDERED: Vancomycin 0 MG in 0.9 % Sodium Chloride 250 ML IVPB SCH (16:00)
[2018-02-20 16:28] LABS: ABG Base Excess 2 mEq/L (-2 to 3); ABG HCO3 29 mEq/L (21-27); ABG Oxygen Saturation 97 % (95-98); ABG PCO2 56 mmHg (35-45); ABG PH 7.33 pH Units (7.32-7.45); ABG PO2 102 mmHg (85-104); ABG TCO2 31 mEq/L (20-26); Blood Gas Modality AF; Blood Gas PEEP 5 cm H2O; Blood Gas Respiration Rate 21; Blood Gas VT 450 cc
[2018-02-20] MEDS: Thiamine (B-1) 100 MG, Folic Acid 1 MG, MVI, adult with vitamin K 10 ML in 0.9 % Sodi... IVPB SCH (17:12)
[2018-02-20] MEDS: MethylPREDNISolone 40 MG/ML VIAL IVP SCH (17:13)
[2018-02-20 19:12] LABS: BUN/Creatinine Ratio 19 (6-26); Blood Urea Nitrogen 14 mg/dL (6-20); Carbon Dioxide 26 mEq/L (23-29); Chloride 105 mEq/L (98-107); Glucose 143 mg/dL (70-105); Osmolality,Calculated 287 (280-300); Potassium 4.7 mEq/L (3.5-5.1); Sodium 137 mEq/L (136-145); eGFR For Non-African Americans > 60 (> 60)
[2018-02-20] MEDS: FentaNYL (PF) 2,500 MCG in EMPTY BAG 1 EACH IVC SCH (23:10)
[2018-02-21] MEDS: Artificial Tears SOLN 15 ML BOTTLE BOTH EYES SCH ×5 (03:06→20:09)
[2018-02-21] MEDS: Midazolam HCl 100 MG in 0.9 % Sodium Chloride 80 ML IVC SCH (03:41)
[2018-02-21] MEDS: Levalbuterol Neb 0.63 MG/3 ML IH SCH ×4 (03:48→21:47)
[2018-02-21 04:32] LABS: Basophils % 0.1 %; Hematocrit 33.6 % (37.5-50.1); Hemoglobin 10.6 g/dL (12.9-16.9); Immature Granulocytes % 1.4 % (0-4); Lymphocytes # 0.9 K/mcL (0.6-4.6); Lymphocytes % 10.9 %; Mean Corpuscular HGB Conc 31.5 g/dL (31.6-35.5); Mean Corpuscular Hemoglobin 27.1 pg (28.0-33.3); Mean Corpuscular Volume 85.9 fL (83.0-100.0); Monocytes # 0.6 K/mcL (0.0-1.3); Neutrophils # 6.3 K/mcL (1.6-8.9); Platelet Count 308 K/mcL (140-400); Red Blood Count 3.91 M/mcL (4.19-5.50); Red Cell Distribution Width 13.6 % (11.5-14.5); Segmented Neutrophils % 80.6 %
[2018-02-21 04:48] LABS: BUN/Creatinine Ratio 21 (6-26); Blood Urea Nitrogen 15 mg/dL (6-20); Calcium 8.8 mg/dL (8.6-10.3); Carbon Dioxide 26 mEq/L (23-29); Chloride 107 mEq/L (98-107); Glucose 162 mg/dL (70-105); Magnesium 2.8 mg/dL (1.6-2.6); Osmolality,Calculated 294 (280-300); Potassium 4.6 mEq/L (3.5-5.1); Sodium 140 mEq/L (136-145); eGFR For Non-African Americans > 60 (> 60)
[2018-02-21] MEDS: Dexmedetomidine HCl 400 MCG/100 ML MLS IVC SCH ×3 (04:51→21:13)
[2018-02-21 05:05] LABS: ABG Base Excess 4 mEq/L (-2 to 3); ABG HCO3 30 mEq/L (21-27); ABG Oxygen Saturation 97 % (95-98); ABG PCO2 54 mmHg (35-45); ABG PH 7.36 pH Units (7.32-7.45); ABG PO2 101 mmHg (85-104); ABG TCO2 32 mEq/L (20-26); Blood Gas Modality ASSIST CONTROL; Blood Gas PEEP 5 cm H2O; Blood Gas Respiration Rate 18; Blood Gas VT 450 cc
[2018-02-21] MEDS: MethylPREDNISolone 40 MG/ML VIAL IVP SCH ×2 (05:31→16:31)
[2018-02-21] MEDS: *HR* Heparin 5,000 UNIT/ML VIAL SQ SCH ×2 (05:31→16:28)
[2018-02-21] MEDS: Pantoprazole 40 MG VIAL IVP SCH (05:31)
[2018-02-21] MEDS: Chlorhexidine Rinse 15 ML MOUTHWASH MM SCH ×2 (08:27→20:08)
[2018-02-21] MEDS: Piperacillin/Tazobactam 3.375 GM in 0.9 % Sodium Chloride Mini Bag 100 ML IVPB SCH ×2 (08:27→16:30)
[2018-02-21] MEDS: Nicotine 21 MG PATCH.TD24 TD SCH (08:27)
[2018-02-21] MEDS: FentaNYL (PF) 2,500 MCG in EMPTY BAG 1 EACH IVC SCH ×2 (08:40→21:49)
--- NOTE | 2018-02-21 08:55 | Pulmonology Progress Note ---
<Jesu Montes W - Last Filed: 02/21/18 10:30> Date of Encounter: 02/21/18 Objective PUL Vital signs: Last Vital Signs Temp 99.4 F 02/21/18 07:44 Pulse 80 02/21/18 09:00 Resp 17 02/21/18 10:00 BP 120/81 02/21/18 10:00 Pulse Ox 96 02/21/18 10:00 Ventilator Settings Ventilator Settings: Ventilator Settings, Last 8 Hours Ventilator Tidal Volume 450 Setting Ventilator Tidal Volume 450 Setting Ventilator Tidal Volume 450 Setting Ventilator Tidal Volume 450 Setting Ventilator Tidal Volume 450 Setting Ventilator Tidal Volume 450 Setting Ventilator Tidal Volume 450 Setting Ventilator Tidal Volume 450 Setting Ventilator Tidal Volume 450 Setting Ventilator Tidal Volume 450 Setting Ventilator Tidal Volume 450 Setting Ventilator Respiratory Rate 18 Setting Ventilator Respiratory Rate 18 Setting Ventilator Respiratory Rate 18 Setting Ventilator Respiratory Rate 18 Setting Ventilator Respiratory Rate 18 Setting Ventilator Respiratory Rate 18 Setting Ventilator Respiratory Rate 18 Setting Ventilator Respiratory Rate 18 Setting Ventilator Respiratory Rate 18 Setting Ventilator Respiratory Rate 18 Setting Ventilator Respiratory Rate 18 Setting Actual Respiratory Rate 17 Actual Respiratory Rate 17 Actual Respiratory Rate 18 Actual Respiratory Rate 18 Actual Respiratory Rate 18 Actual Respiratory Rate 18 Actual Respiratory Rate 18 Actual Respiratory Rate 18 Actual Respiratory Rate 18 Actual Respiratory Rate 20 Positive End Expiratory 5 Pressure Positive End Expiratory 5 Pressure Positive End Expiratory 5 Pressure Positive End Expiratory 5 Pressure Positive End Expiratory 5 Pressure Positive End Expiratory 5 Pressure Positive End Expiratory 5 Pressure Positive End Expiratory 5 Pressure Positive End Expiratory 5 Pressure Positive End Expiratory 5 Pressure Positive End Expiratory 5 Pressure Peak Inspiratory Airway 41 Pressure Peak Inspiratory Airway 46 Pressure Peak Inspiratory Airway 43 Pressure Peak Inspiratory Airway 41 Pressure Peak Inspiratory Airway 42 Pressure Peak Inspiratory Airway 47 Pressure Peak Inspiratory Airway 48 Pressure Results - Laboratory Findings CBC and BMP: 02/21/18 04:03 02/21/18 04:03 ABG ABG pH 7.36 pH Units (7.32-7.45) 02/21/18 05:01 ABG pCO2 54 mmHg (35-45) H 02/21/18 05:01 ABG pO2 101 mmHg (85-104) 02/21/18 05:01 ABG O2 Saturation 97 % (95-98) 02/21/18 05:01 Abnormal lab findings: Abnormal lab results RBC 3.91 M/mcL (4.19-5.50) L 02/21/18 04:03 Hgb 10.6 g/dL (12.9-16.9) L 02/21/18 04:03 Hct 33.6 % (37.5-50.1) L 02/21/18 04:03 MCH 27.1 pg (28.0-33.3) L 02/21/18 04:03 MCHC 31.5 g/dL (31.6-35.5) L 02/21/18 04:03 MPV 9.0 fL (9.4-12.4) L 02/21/18 04:03 ABG pCO2 54 mmHg (35-45) H 02/21/18 05:01 ABG HCO3 30 mEq/L (21-27) H 02/21/18 05:01 ABG Total CO2 32 mEq/L (20-26) H 02/21/18 05:01 ABG Base Excess 4 mEq/L (-2 to 3) H 02/21/18 05:01 Glucose 162 mg/dL (70-105) H 02/21/18 04:03 POC Glucose 106 mg/dL (70-99) H 02/21/18 10:10 Hemoglobin A1c 6.1 % (-5.6) H 02/18/18 07:02 Magnesium 2.8 mg/dL (1.6-2.6) H 02/21/18 04:03 Globulin 3.6 g/dL (2.4-3.5) H 02/20/18 03:52 - Microbiology Findings Microbiology Findings: Microbiology, Last 48 Hours 02/20/18 04:15 Legionella Antigen - Final Urine,Clean Catch Streptococcus pneumoniae Antigen (M - Final 02/19/18 08:00 Legionella Antigen - Final Urine,Clean Catch Streptococcus pneumoniae Antigen (M - Final - Clinical Findings Intake & Output: Intake & Output 02/20/18 02/21/18 02/21/18 23:59 07:59 15:59 Intake Total 1551.2 / 1551.2 750 / 750 150 / 150 Output Total 900 / 900 1425 / 1425 Balance 651.2 / 651.2 -675 / -675 150 / 150 Weight 85.7 kg Consult Discharge Plan - Plan Referrals: NONE,PCP [Primary Care Provider] - - Attending Attestation I examined this patient and my medical decision-making was reviewed with the Res ident Physician. I agree with the documented findings, disposition and treatment plan as described except to the extent set forth below. We independently had [id number] contact with the patient I spent 32min of Critical Care time with this patient. It involved decision making of high complexity to assess, manipulate, and support vital organ system failure and/or to prevent further life threatening deterioration of the patient's condition. The time involved in the performance of separately r eportable procedures was not counted toward critical care time. Patient seen and examined at bedside Labs, radiology, chart personally reviewed. Management was reviewed during multidisciplinary critical care rounds. 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 We will stop sedation with propofol today and attempt to wake patient up more. Pulm: Hypoxic hypercapnic respiratory failure secondary to multifocal focal pneumonia and ARDS significant improvement in the peak and plateau pressures on ventilator and acceptable gas exchange today with progressive hypercapnia. Not a candidate for CPAP trial today because of being deeply sedated we will repeat evaluate this tomorrow continue steroids and bronchodilators Cards: Remains hemodynamically stable GI: High prophylaxis given Nutrition: Enteral nutrition per dietary recommendations Renal: UOP Monitored, Cont to Trend sCr and monitor Electrolytes. ID: His being treated with broad-spectrum antibiotics for pneumonia including aspiration did spike a fever overnight but that has not been persistent today Heme/Onc: Full axis given Endo: Glucose Monitored Integ/MSK: Skin Care per routine ICU Nursing Protocol to prevent ulcers. Lines: All lines examined without evidence of infection : Dispo: Remain in the ICU for critical illness and vent management CODE: Full <Carina Agustin - Last Filed: 02/21/18 10:55> Date of Encounter: 02/21/18 Time of Encounter: 07:40 Assessment and Plan (1) Acute respiratory failure with hypoxia and hypercapnia Current Visit: Yes Status: Acute Likely secondary to pneumonia complicated by ARDS Patient is intubated under deep sedation fentanyl, versed, propofol, precedex. Today, ABG shows pH 7.36, pCO2 54, pO2 101, HCO3 30. Continue IV steroids and bronchodilators. Wean sedation. Attempt to stop propofol today. Consider CPAP trial tomorrow. Also see plan#2 (2) Healthcare-associated pneumonia Current Visit: Yes Status: Acute Patient presented with cough. Possibly aspiration. Recent hospitalization. Respiratory panel was negative. Legionella and Strep pneumoniae are negative. Blood culture drawn 02/17 x2 sets are NGTD. CXR 02/17 showed bilateral ground glass opacities. CTA chest shows diffuse alveolar damage, multifocal dense consolidations. Could represent acute interstitial pneumonia vs ARDS. Continue day 4 of vancomycin. Continue day 5 of zosyn. (3) Acute respiratory distress syndrome (ARDS) Current Visit: Yes Status: Acute Likely secondary to bilateral pneumonia. CTA chest shows diffuse alveolar damage, multifocal dense consolidations. Could represent acute interstitial pneumonia vs ARDS. Patient is mechanically ventilated. Continue IV steroids. (4) Alcohol withdrawal Current Visit: No Status: Acute History of heavy alcohol use, 1-2 cases of beer daily. [facility] protocol. Thiamine/folate/multivitamins. Qualifiers: Complication of substance-induced condition: uncomplicated Qualified Code(s ): F10.230 - Alcohol dependence with withdrawal, uncomplicated (5) Tobacco dependence Current Visit: Yes Status: Chronic Nicotine patch (6) DVT prophylaxis Current Visit: No Status: Acute heparin SQ Subjective Interval history: Patient seen and examined. Patient had fever last night. No fever this morning. Patient is intubated under sedation. Patient is not alert and cannot provide any history or ROS. Objective PUL Vital signs: Last Vital Signs Temp 99.4 F 02/21/18 07:44 Pulse 73 02/21/18 06:00 Resp 18 02/21/18 07:32 BP 136/92 02/21/18 07:32 Pulse Ox 97 02/21/18 07:32 General appearance: no acute distress, other (under deep sedation) Neck: supple Effort: normal Auscultation: bilateral: rales (Diffuse inspiratory and expiratory crackles bilaterally ) Cardiovascular: regular rate and rhythm Gastrointestinal: normoactive bowel sounds, soft, non-tender Integumentary: normal Extremities: no cyanosis, no edema, no clubbing, pink and warm Musculoskeletal: no deformities unable to assess due to mental status Ventilator Settings Ventilator Settings: Ventilator Settings, Last 8 Hours Ventilator Tidal Volume 450 Setting Ventilator Tidal Volume 450 Setting Ventilator Tidal Volume 450 Setting Ventilator Tidal Volume 450 Setting Ventilator Tidal Volume 450 Setting Ventilator Tidal Volume 450 Setting Ventilator Tidal Volume 450 Setting Ventilator Tidal Volume 450 Setting Ventilator Tidal Volume 450 Setting Ventilator Tidal Volume 450 Setting Ventilator Respiratory Rate 18 Setting Ventilator Respiratory Rate 18 Setting Ventilator Respiratory Rate 18 Setting Ventilator Respiratory Rate 18 Setting Ventilator Respiratory Rate 18 Setting Ventilator Respiratory Rate 18 Setting Ventilator Respiratory Rate 18 Setting Ventilator Respiratory Rate 18 Setting Ventilator Respiratory Rate 18 Setting Ventilator Respiratory Rate 18 Setting Actual Respiratory Rate 18 Actual Respiratory Rate 18 Actual Respiratory Rate 18 Actual Respiratory Rate 18 Actual Respiratory Rate 18 Actual Respiratory Rate 20 Actual Respiratory Rate 19 Actual Respiratory Rate 19 Actual Respiratory Rate 22 Positive End Expiratory 5 Pressure Positive End Expiratory 5 Pressure Positive End Expiratory 5 Pressure Positive End Expiratory 5 Pressure Positive End Expiratory 5 Pressure Positive End Expiratory 5 Pressure Positive End Expiratory 5 Pressure Positive End Expiratory 5 Pressure Positive End Expiratory 5 Pressure Positive End Expiratory 5 Pressure Peak Inspiratory Airway 41 Pressure Peak Inspiratory Airway 47 Pressure Peak Inspiratory Airway 48 Pressure Peak Inspiratory Airway 39 Pressure Results - Laboratory Findings CBC and BMP: 02/21/18 04:03 02/21/18 04:03 ABG ABG pH 7.36 pH Units (7.32-7.45) 02/21/18 05:01 ABG pCO2 54 mmHg (35-45) H 02/21/18 05:01 ABG pO2 101 mmHg (85-104) 02/21/18 05:01 ABG O2 Saturation 97 % (95-98) 02/21/18 05:01 Abnormal lab findings: Abnormal lab results RBC 3.91 M/mcL (4.19-5.50) L 02/21/18 04:03 Hgb 10.6 g/dL (12.9-16.9) L 02/21/18 04:03 Hct 33.6 % (37.5-50.1) L 02/21/18 04:03 MCH 27.1 pg (28.0-33.3) L 02/21/18 04:03 MCHC 31.5 g/dL (31.6-35.5) L 02/21/18 04:03 MPV 9.0 fL (9.4-12.4) L 02/21/18 04:03 ABG pCO2 54 mmHg (35-45) H 02/21/18 05:01 ABG HCO3 30 mEq/L (21-27) H 02/21/18 05:01 ABG Total CO2 32 mEq/L (20-26) H 02/21/18 05:01 ABG Base Excess 4 mEq/L (-2 to 3) H 02/21/18 05:01 Glucose 162 mg/dL (70-105) H 02/21/18 04:03 POC Glucose 162 mg/dL (70-99) H 02/21/18 05:42 Hemoglobin A1c 6.1 % (-5.6) H 02/18/18 07:02 Magnesium 2.8 mg/dL (1.6-2.6) H 02/21/18 04:03 Globulin 3.6 g/dL (2.4-3.5) H 02/20/18 03:52 - Microbiology Findings Microbiology Findings: Microbiology, Last 48 Hours 02/20/18 04:15 Legionella Antigen - Final Urine,Clean Catch Streptococcus pneumoniae Antigen (M - Final 02/19/18 08:00 Legionella Antigen - Final Urine,Clean Catch Streptococcus pneumoniae Antigen (M - Final - Clinical Findings Intake & Output: Intake & Output 02/20/18 02/21/18 02/21/18 23:59 07:59 15:59 Intake Total 1551.2 / 1551.2 750 / 750 50 / 50 Output Total 900 / 900 1425 / 1425 Balance 651.2 / 651.2 -675 / -675 50 / 50 Weight 85.7 kg
[2018-02-21] MEDS: Thiamine (B-1) 100 MG, Folic Acid 1 MG, MVI, adult with vitamin K 10 ML in 0.9 % Sodi... IVPB SCH (16:29)
[2018-02-22] MEDS: Artificial Tears SOLN 15 ML BOTTLE BOTH EYES SCH ×7 (00:11→23:30)
[2018-02-22] MEDS: Piperacillin/Tazobactam 3.375 GM in 0.9 % Sodium Chloride Mini Bag 100 ML IVPB SCH ×4 (00:12→23:28)
[2018-02-22] MEDS: Dexmedetomidine HCl 400 MCG/100 ML MLS IVC SCH (01:38)
[2018-02-22] MEDS: Levalbuterol Neb 0.63 MG/3 ML IH SCH ×4 (03:29→21:41)
[2018-02-22 04:10] LABS: Basophils % 0.2 %; Eosinophils % 0.2 %; Hematocrit 35.8 % (37.5-50.1); Hemoglobin 11.1 g/dL (12.9-16.9); Immature Granulocytes % 1.3 % (0-4); Lymphocytes % 22.9 %; Mean Corpuscular Hemoglobin 27.1 pg (28.0-33.3); Mean Corpuscular Volume 87.3 fL (83.0-100.0); Monocytes # 0.7 K/mcL (0.0-1.3); Neutrophils # 5.8 K/mcL (1.6-8.9); Platelet Count 341 K/mcL (140-400); Red Cell Distribution Width 13.4 % (11.5-14.5); Segmented Neutrophils % 67.4 %
[2018-02-22 04:29] LABS: BUN/Creatinine Ratio 32 (6-26); Blood Urea Nitrogen 21 mg/dL (6-20); Carbon Dioxide 30 mEq/L (23-29); Chloride 105 mEq/L (98-107); Glucose 137 mg/dL (70-105); Magnesium 2.6 mg/dL (1.6-2.6); Osmolality,Calculated 299 (280-300); Phosphorous 3.3 mg/dL (2.7-4.5); Potassium 4.5 mEq/L (3.5-5.1); Sodium 142 mEq/L (136-145); eGFR For Non-African Americans > 60 (> 60)
[2018-02-22 04:59] LABS: ABG Base Excess 9 mEq/L (-2 to 3); ABG HCO3 36 mEq/L (21-27); ABG Oxygen Saturation 94 % (95-98); ABG PCO2 60 mmHg (35-45); ABG PH 7.38 pH Units (7.32-7.45); ABG PO2 76 mmHg (85-104); ABG TCO2 37 mEq/L (20-26); Blood Gas Modality ASSIST CONTROL; Blood Gas PEEP 5 cm H2O; Blood Gas Respiration Rate 18; Blood Gas VT 450 cc
[2018-02-22] MEDS: *HR* Heparin 5,000 UNIT/ML VIAL SQ SCH ×2 (06:04→18:24)
[2018-02-22] MEDS: Pantoprazole 40 MG VIAL IVP SCH (06:04)
[2018-02-22] MEDS: MethylPREDNISolone 40 MG/ML VIAL IVP SCH ×2 (06:04→18:24)
[2018-02-22] MEDS: Midazolam HCl 100 MG in 0.9 % Sodium Chloride 80 ML IVC SCH (06:17)
[2018-02-22] MEDS: FentaNYL (PF) 2,500 MCG in EMPTY BAG 1 EACH IVC SCH ×2 (07:38→19:47)
[2018-02-22] MEDS: Nicotine 21 MG PATCH.TD24 TD SCH (07:43)
[2018-02-22] MEDS: Chlorhexidine Rinse 15 ML MOUTHWASH MM SCH ×2 (07:43→19:46)
[2018-02-22] MEDS ORDERED: *HR* Midazolam HCl 2 MG/2 ML VIAL IV ONE (08:20)
[2018-02-22] MEDS ORDERED: *HR* Midazolam HCl 5 MG/5 ML VIAL IVP ONE (08:20)
[2018-02-22] MEDS ORDERED: *HR* Succinylcholine 200 MG/10 ML VIAL IVP ONE (08:20)
[2018-02-22] MEDS ORDERED: *HR* Etomidate 40 MG/20 ML VIAL IVP ONE (08:20)
--- NOTE | 2018-02-22 08:23 | Pulmonology Progress Note ---
<Carina Agustin - Last Filed: 02/22/18 13:32> Date of Encounter: 02/22/18 Time of Encounter: 08:20 Assessment and Plan (1) Acute respiratory failure with hypoxia and hypercapnia Current Visit: Yes Status: Acute Likely secondary to pneumonia complicated by ARDS Patient was intubated under deep sedation fentanyl, versed, propofol, precedex. Today, ABG shows pH 7.38, pCO2 elevated at 60, pO2 decreased at 76, HCO3 elevated at 36. Propofol stopped yesterday. Failed CPAP trial this morning. Ventilator settings optimized to RR 21 and tidal volume 380 for ARDS management. Patient breathing over vent settings. Switched precedex to propofol. May require paralysis if patient cannot keep vent settings. Continue IV steroids and bronchodilators. Also see plan#2 (2) Healthcare-associated pneumonia Current Visit: Yes Status: Acute Patient presented with cough. Possibly aspiration. Recent hospitalization. Respiratory panel was negative. Legionella and Strep pneumoniae are negative. Blood culture drawn 02/17 x2 sets are NGTD. CXR 02/17 showed bilateral ground glass opacities. CTA chest shows diffuse alveolar damage, multifocal dense consolidations. Could represent acute interstitial pneumonia vs ARDS. CXR this morning shows ARDS that is improved. Continue day 5 of vancomycin. Continue day 6 of zosyn. (3) Acute respiratory distress syndrome (ARDS) Current Visit: Yes Status: Acute Likely secondary to bilateral pneumonia. CTA chest shows diffuse alveolar damage, multifocal dense consolidations. Could represent acute interstitial pneumonia vs ARDS. CXR this morning shows ARDS that is improved. Patient is mechanically ventilated. Continue IV steroids. Also see plan #1. (4) Alcohol withdrawal Current Visit: No Status: Acute History of heavy alcohol use, 1-2 cases of beer daily. [place] protocol. Thiamine/folate/multivitamins. Qualifiers: Complication of substance-induced condition: uncomplicated Qualified Code(s): F10.230 - Alcohol dependence with withdrawal, uncomplicated (5) Priapism Current Visit: Yes Status: Acute Patient has had an erection today since 4am. Urology consulted. Plan for aspiration and phenylephrine injection. (6) Tobacco dependence Current Visit: Yes Status: Chronic Nicotine patch (7) DVT prophylaxis Current Visit: No Status: Acute heparin SQ Subjective Interval history: Patient seen and examined. Patient is intubated under sedation. Patient wakes up but soon falls back asleep. Patient can follow commands. Nurse reports that patient has had an erection since 4am when she went to bathe him. Patient denies any penile pain or discomfort. Objective PUL Vital signs: Last Vital Signs Temp 98.3 F 02/22/18 07:15 Pulse 86 02/22/18 06:00 Resp 18 02/22/18 06:00 BP 141/90 02/22/18 06:00 Pulse Ox 97 02/22/18 06:00 General appearance: no acute distress Eyes: nonicteric Effort: normal, other (productive cough) Auscultation: right: wheezes (Mild expiratory wheezing in right lung base ), bilateral: rhonchi (Diffuse rhonchi bilaterally, worse on right ) Cardiovascular: regular rate and rhythm Gastrointestinal: normoactive bowel sounds, soft, non-tender Integumentary: normal Extremities: no cyanosis, no edema, no clubbing, pink and warm Musculoskeletal: no deformities unable to assess due to mental status Ventilator Settings Ventilator Settings: Ventilator Settings, Last 8 Hours Ventilator Tidal Volume 450 Setting Ventilator Tidal Volume 450 Setting Ventilator Tidal Volume 450 Setting Ventilator Tidal Volume 450 Setting Ventilator Tidal Volume 450 Setting Ventilator Tidal Volume 450 Setting Ventilator Tidal Volume 450 Setting Ventilator Tidal Volume 450 Setting Ventilator Tidal Volume 450 Setting Ventilator Tidal Volume 450 Setting Ventilator Respiratory Rate 18 Setting Ventilator Respiratory Rate 18 Setting Ventilator Respiratory Rate 18 Setting Ventilator Respiratory Rate 18 Setting Ventilator Respiratory Rate 18 Setting Ventilator Respiratory Rate 18 Setting Ventilator Respiratory Rate 18 Setting Ventilator Respiratory Rate 18 Setting Ventilator Respiratory Rate 18 Setting Ventilator Respiratory Rate 18 Setting Actual Respiratory Rate 18 Actual Respiratory Rate 18 Actual Respiratory Rate 18 Actual Respiratory Rate 18 Actual Respiratory Rate 18 Actual Respiratory Rate 18 Actual Respiratory Rate 18 Actual Respiratory Rate 18 Actual Respiratory Rate 18 Positive End Expiratory 5 Pressure Positive End Expiratory 5 Pressure Positive End Expiratory 5 Pressure Positive End Expiratory 5 Pressure Positive End Expiratory 5 Pressure Positive End Expiratory 5 Pressure Positive End Expiratory 5 Pressure Positive End Expiratory 5 Pressure Positive End Expiratory 5 Pressure Positive End Expiratory 5 Pressure Peak Inspiratory Airway 38 Pressure Peak Inspiratory Airway 38 Pressure Peak Inspiratory Airway 35 Pressure Peak Inspiratory Airway 35 Pressure Peak Inspiratory Airway 35 Pressure Peak Inspiratory Airway 40 Pressure Peak Inspiratory Airway 40 Pressure Peak Inspiratory Airway 40 Pressure Peak Inspiratory Airway 50 Pressure Results - Laboratory Findings CBC and BMP: 02/22/18 03:47 02/22/18 03:47 ABG ABG pH 7.38 pH Units (7.32-7.45) 02/22/18 04:56 ABG pCO2 60 mmHg (35-45) H 02/22/18 04:56 ABG pO2 76 mmHg (85-104) L 02/22/18 04:56 ABG O2 Saturation 94 % (95-98) L 02/22/18 04:56 Abnormal lab findings: Abnormal lab results RBC 4.10 M/mcL (4.19-5.50) L 02/22/18 03:47 Hgb 11.1 g/dL (12.9-16.9) L 02/22/18 03:47 Hct 35.8 % (37.5-50.1) L 02/22/18 03:47 MCH 27.1 pg (28.0-33.3) L 02/22/18 03:47 MCHC 31.0 g/dL (31.6-35.5) L 02/22/18 03:47 MPV 9.0 fL (9.4-12.4) L 02/22/18 03:47 ABG pCO2 60 mmHg (35-45) H 02/22/18 04:56 ABG pO2 76 mmHg (85-104) L 02/22/18 04:56 ABG HCO3 36 mEq/L (21-27) H 02/22/18 04:56 ABG Total CO2 37 mEq/L (20-26) H 02/22/18 04:56 ABG O2 Saturation 94 % (95-98) L 02/22/18 04:56 ABG Base Excess 9 mEq/L (-2 to 3) H 02/22/18 04:56 Carbon Dioxide 30 mEq/L (23-29) H 02/22/18 03:47 BUN 21 mg/dL (6-20) H 02/22/18 03:47 Creatinine 0.66 mg/dL (0.70-1.30) L 02/22/18 03:47 BUN/Creatinine Ratio 32 (6-26) H 02/22/18 03:47 Glucose 137 mg/dL (70-105) H 02/22/18 03:47 POC Glucose 122 mg/dL (70-99) H 02/22/18 05:25 Hemoglobin A1c 6.1 % (-5.6) H 02/18/18 07:02 Globulin 3.6 g/dL (2.4-3.5) H 02/20/18 03:52 - Microbiology Findings Microbiology Findings: Microbiology, Last 48 Hours 02/20/18 04:15 Legionella Antigen - Final Urine,Clean Catch Streptococcus pneumoniae Antigen (M - Final - Clinical Findings Intake & Output: Intake & Output 02/21/18 02/22/18 02/22/18 23:59 07:59 15:59 Intake Total 658 / 658 594 / 594 Output Total 700 / 700 1250 / 1250 Balance -42 / -42 -656 / -656 Weight 83.96 kg Consult Discharge Plan - Plan Referrals: NONE,PCP [Primary Care Provider] - <Dejuan Knox M - Last Filed: 02/22/18 15:54> Date of Encounter: 02/22/18 Objective PUL Vital signs: Last Vital Signs Temp 98.3 F 02/22/18 07:15 Pulse 75 02/22/18 10:00 Resp 27 02/22/18 10:00 BP 139/97 02/22/18 10:00 Pulse Ox 98 02/22/18 10:00 Ventilator Settings Ventilator Settings: Ventilator Settings, Last 8 Hours Ventilator Tidal Volume 380 Setting Ventilator Tidal Volume 380 Setting Ventilator Tidal Volume 360 Setting Ventilator Tidal Volume 450 Setting Ventilator Tidal Volume 450 Setting Ventilator Tidal Volume 450 Setting Ventilator Tidal Volume 450 Setting Ventilator Tidal Volume 450 Setting Ventilator Tidal Volume 450 Setting Ventilator Tidal Volume 450 Setting Ventilator Tidal Volume 450 Setting Ventilator Respiratory Rate 21 Setting Ventilator Respiratory Rate 21 Setting Ventilator Respiratory Rate 21 Setting Ventilator Respiratory Rate 18 Setting Ventilator Respiratory Rate 18 Setting Ventilator Respiratory Rate 18 Setting Ventilator Respiratory Rate 18 Setting Ventilator Respiratory Rate 18 Setting Ventilator Respiratory Rate 18 Setting Ventilator Respiratory Rate 18 Setting Ventilator Respiratory Rate 18 Setting Actual Respiratory Rate 26 Actual Respiratory Rate 26 Actual Respiratory Rate 29 Actual Respiratory Rate 26 Actual Respiratory Rate 18 Actual Respiratory Rate 18 Actual Respiratory Rate 18 Actual Respiratory Rate 18 Actual Respiratory Rate 18 Actual Respiratory Rate 18 Positive End Expiratory 5 Pressure Positive End Expiratory 5 Pressure Positive End Expiratory 5 Pressure Positive End Expiratory 5 Pressure Positive End Expiratory 5 Pressure Positive End Expiratory 5 Pressure Positive End Expiratory 5 Pressure Positive End Expiratory 5 Pressure Positive End Expiratory 5 Pressure Positive End Expiratory 5 Pressure Positive End Expiratory 5 Pressure Peak Inspiratory Airway 31 Pressure Peak Inspiratory Airway 28 Pressure Peak Inspiratory Airway 38 Pressure Peak Inspiratory Airway 38 Pressure Peak Inspiratory Airway 35 Pressure Peak Inspiratory Airway 35 Pressure Peak Inspiratory Airway 35 Pressure Peak Inspiratory Airway 40 Pressure Results - Laboratory Findings CBC and BMP: 02/22/18 03:47 02/22/18 03:47 ABG ABG pH 7.38 pH Units (7.32-7.45) 02/22/18 04:56 ABG pCO2 60 mmHg (35-45) H 02/22/18 04:56 ABG pO2 76 mmHg (85-104) L 02/22/18 04:56 ABG O2 Saturation 94 % (95-98) L 02/22/18 04:56 Abnormal lab findings: Abnormal lab results RBC 4.10 M/mcL (4.19-5.50) L 02/22/18 03:47 Hgb 11.1 g/dL (12.9-16.9) L 02/22/18 03:47 Hct 35.8 % (37.5-50.1) L 02/22/18 03:47 MCH 27.1 pg (28.0-33.3) L 02/22/18 03:47 MCHC 31.0 g/dL (31.6-35.5) L 02/22/18 03:47 MPV 9.0 fL (9.4-12.4) L 02/22/18 03:47 ABG pCO2 60 mmHg (35-45) H 02/22/18 04:56 ABG pO2 76 mmHg (85-104) L 02/22/18 04:56 ABG HCO3 36 mEq/L (21-27) H 02/22/18 04:56 ABG Total CO2 37 mEq/L (20-26) H 02/22/18 04:56 ABG O2 Saturation 94 % (95-98) L 02/22/18 04:56 ABG Base Excess 9 mEq/L (-2 to 3) H 02/22/18 04:56 Carbon Dioxide 30 mEq/L (23-29) H 02/22/18 03:47 BUN 21 mg/dL (6-20) H 02/22/18 03:47 Creatinine 0.66 mg/dL (0.70-1.30) L 02/22/18 03:47 BUN/Creatinine Ratio 32 (6-26) H 02/22/18 03:47 Glucose 137 mg/dL (70-105) H 02/22/18 03:47 POC Glucose 122 mg/dL (70-99) H 02/22/18 05:25 Hemoglobin A1c 6.1 % (-5.6) H 02/18/18 07:02 Globulin 3.6 g/dL (2.4-3.5) H 02/20/18 03:52 - Microbiology Findings Microbiology Findings: Microbiology, Last 48 Hours 02/20/18 04:15 Legionella Antigen - Final Urine,Clean Catch Streptococcus pneumoniae Antigen (M - Final - Clinical Findings Intake & Output: Intake & Output 02/21/18 02/22/18 02/22/18 23:59 07:59 15:59 Intake Total 658 / 658 594 / 594 250 / 250 Output Total 700 / 700 1250 / 1250 Balance -42 / -42 -656 / -656 250 / 250 Weight 83.96 kg - Attending Attestation I examined this patient and my medical decision-making was reviewed with the Resident Physician. I agree with the documented findings, disposition and treatment plan as described except to the extent set forth below. Patient seen and examined. Labs, radiology, chart personally reviewed. Agree with resident's history and physical, assessment, plan with following comments: [employer]: Patient doesn't follows commands, Pt is on heavy sedation for the vent synchrony Pulmonary: Acceptable oxygenation and ventilation Changed vent setting for lung protective strategy and lower according to the ideal body weight. Patient will need deep sedation for the vent synchrony. He still meet ARDS criteria and his repeat chest x-ray has improved. We will continue with low tidal volume ventilator strategy and also diuresis. They expect his course will improve and I am hoping in next 1 or 2 days we will be able to extubate him. Cardiovascular: stable GI: Nutrition per dietary and GI prophylaxis per routine Heme: DVT prophylaxis per routine ID: Continue antibiotics and plan to de-escalation. Renal; urine out put and renal funtion reviewed. Urology evaluation. Endorcine: blood glucose is monitored Lines: all lines checked and no evidence of infections Skin: skin care to prevent pressure ulcers per nursing routine care I spent 35 min of Critical Care time with this patient. It involved decision making of high complexity to assess, manipulate, and support vital organ system failure and/or to prevent further life threatening deterioration of the patient's condition. The time involved in the performance of separately reportable procedures was not counted toward critical care time.
[2018-02-22] MEDS ORDERED: SODIUM CHLORIDE IC ONE (10:40)
[2018-02-22] MEDS ORDERED: PHENYLEPHRINE IC ONE (10:40)
[2018-02-22] MEDS ORDERED: 0.9 % Sodium Chloride 1,000 ML IVC ONE (10:47)
[2018-02-22] MEDS ORDERED: Furosemide 20 MG/2 ML VIAL IVP SCH (11:15)
[2018-02-22] MEDS ORDERED: *HR* Vecuronium 10 MG VIAL IVP ONE (11:22)
[2018-02-22] MEDS: Vecuronium 50 MG in 0.9 % Sodium Chloride 200 ML IVC SCH (12:00)
--- NOTE | 2018-02-22 12:45 | Urology - Consult Note ---
<Bryanna Rodríguez N - Last Filed: 02/22/18 12:43> Date of Encounter: 02/22/18 Time of Encounter: 11:30 - Assessment and Plan (1) Priapism Current Visit: Yes Status: Acute Assessment and plan: Patient is a 37 year old male who presents with a history of priapism. Penis prepped with betadine and anesthesia delivered through penile block of 10cc 1% Lidocaine without epi. Two large bore 12G angiocaths inserted into both corporal bodies bilaterally. Moderate dark, thick blood immediately drained from angiocaths bilaterally. 19G Butterfly needle inserted into base of the penis, and 400mL 0.9%NS irrigated through penis. Phenylephrine injection x 5 delivered in 5 minute increments. Patient tolerated evacuation and irrigation of penile blood and phenylephrine injection x5. Ice pack applied to penis. Will reeva luate status in one hour. Urology CN:HPI Consult date: 02/22/18 Reason for consult Urology: Other (priapism) History of present illness: Patient is a 37 year old male who presents with priapism. Patient was admitted for flu-like symptoms and bilateral pneumonia. Patient is a heavy alcohol abuser and suffered delirium tremens which led to aspiration pneumonia during intubation. Patient is currently admitted to ICU with paralytic sedation and mechanical ventilation. Nurse reports priapism following bedside bath at 0400. Priapism has been persistent for 7 hours. Heredia catheter is indwelling and d raining clear urine into bedside bag. Patient's mother notified of procedure and verbalized consent to proceed. Past Med Surg Social Fam HX - Past Medical History Medical history: hypertension, other Additional medical history: anxiety,depression Psychiatric history: anxiety, depression, panic disorder - Past Surgical History Surgical History: non-contributory Additional surgical history: uvula bx - Social History Smoking Status: Current every day smoker Smokeless Tobacco Status: No Alcohol use: heavy Drug use: none - Family History Mother Living Status: Still Living Hx Family Cardiac Disorders: Yes (HTN) Hx Family Respiratory Disorders: Yes (COPD) Hx Family Endocrine Disorder: Yes (DM) Father Living Status: Still Living Medications and Allergies Lisinopril [Zestril] 10 mg PO DAILY 09/29/17 [History] Aspirin Enteric Coated [Aspirin EC] 81 mg PO DAILY #30 tablet. 02/10/18 [Rx] FLUoxetine HCl [PROzac] 60 mg PO DAILY 02/18/18 [History] Metoprolol [Lopressor] 12.5 mg PO BID 02/18/18 [History] hydrOXYzine pamoate [HydrOXYzine Pamoate] 50 mg PO TID PRN 02/18/18 [History] Allergy/AdvReac Type Severity Reaction Status Date / Time No Known Allergies Allergy Verified 03/07/17 17:38 Review of Systems ROS unobtainable: due to endotracheal tube Exam Initial Vital Signs Temp Pulse Resp BP Pulse Ox 99.4 F 110 20 121/82 93 02/17/18 19:59 02/17/18 19:59 02/17/18 19:59 02/17/18 19:59 02/17/18 19:59 - General physical appearance Present: well developed, moderate distress - ENT Present: normal nares - Neck Present: no masses, trachea midline - Respiratory Present: other (mechanical ventilation ) - Cardiovascular Cardiovascular exam IM: RRR - Abdomen Abdomen: Present: soft - Genitourinary normal penis with no external lesions, testicles present, other (priapism ) Penis: Present: circumsized Urethral meatis: Present: patent - Integumentary Present: no rash. Absent: lesions - Neurologic Present: other (sedated ) Urology Results - Labs 02/22/18 03:47 02/22/18 03:47 Abnormal lab results RBC 4.10 M/mcL (4.19-5.50) L 02/22/18 03:47 Hgb 11.1 g/dL (12.9-16.9) L 02/22/18 03:47 Hct 35.8 % (37.5-50.1) L 02/22/18 03:47 MCH 27.1 pg (28.0-33.3) L 02/22/18 03:47 MCHC 31.0 g/dL (31.6-35.5) L 02/22/18 03:47 MPV 9.0 fL (9.4-12.4) L 02/22/18 03:47 ABG pCO2 60 mmHg (35-45) H 02/22/18 04:56 ABG pO2 76 mmHg (85-104) L 02/22/18 04:56 ABG HCO3 36 mEq/L (21-27) H 02/22/18 04:56 ABG Total CO2 37 mEq/L (20-26) H 02/22/18 04:56 ABG O2 Saturation 94 % (95-98) L 02/22/18 04:56 ABG Base Excess 9 mEq/L (-2 to 3) H 02/22/18 04:56 Carbon Dioxide 30 mEq/L (23-29) H 02/22/18 03:47 BUN 21 mg/dL (6-20) H 02/22/18 03:47 Creatinine 0.66 mg/dL (0.70-1.30) L 02/22/18 03:47 BUN/Creatinine Ratio 32 (6-26) H 02/22/18 03:47 Glucose 137 mg/dL (70-105) H 02/22/18 03:47 POC Glucose 138 mg/dL (70-99) H 02/22/18 11:45 Hemoglobin A1c 6.1 % (-5.6) H 02/18/18 07:02 Globulin 3.6 g/dL (2.4-3.5) H 02/20/18 03:52 Diabetes panel 02/22/18 Range/Units 03:47 Sodium 142 (136-145) mEq/L Potassium 4.5 (3.5-5.1) mEq/L Chloride 105 (98-107) mEq/L Carbon Dioxide 30 H (23-29) mEq/L BUN 21 H (6-20) mg/dL Creatinine 0.66 L (0.70-1.30) mg/dL Glucose 137 H (70-105) mg/dL Calcium 9.0 (8.6-10.3) mg/dL Calcium panel 02/22/18 Range/Units 03:47 Calcium 9.0 (8.6-10.3) mg/dL Phosphorus 3.3 (2.7-4.5) mg/dL Pituitary panel 02/22/18 Range/Units 03:47 Sodium 142 (136-145) mEq/L Potassium 4.5 (3.5-5.1) mEq/L Chloride 105 (98-107) mEq/L Carbon Dioxide 30 H (23-29) mEq/L BUN 21 H (6-20) mg/dL Creatinine 0.66 L (0.70-1.30) mg/dL Glucose 137 H (70-105) mg/dL Calcium 9.0 (8.6-10.3) mg/dL Adrenal panel 02/22/18 Range/Units 03:47 Sodium 142 (136-145) mEq/L Potassium 4.5 (3.5-5.1) mEq/L Chloride 105 (98-107) mEq/L Carbon Dioxide 30 H (23-29) mEq/L BUN 21 H (6-20) mg/dL Creatinine 0.66 L (0.70-1.30) mg/dL Glucose 137 H (70-105) mg/dL Calcium 9.0 (8.6-10.3) mg/dL All other labs normal. Procedures:Urology - Penile Procedure Indication: priapism management Local anesthesia used: penile nerve block (penile nerve block with 10cc l idocaine 1% without epi) Amount of anesthesia used (mLs): 10 Priapism management: aspiration (Two 12G angiocaths injected into bilateral corporal bodies; 21G butterfly needle inserted into base of the penis ), phenylephrine injection (500mcg per 1cc normal saline injected through 19G needle in 5 minute increments x5. ) Patient tolerated procedure: well, no complications Complications: none Consult Discharge Plan - Plan Referrals: NONE,PCP [Primary Care Provider] - <Glen Krueger - Last Filed: 02/22/18 18:47> Date of Encounter: 02/22/18 - Assessment and Plan (1) Priapism Current Visit: Yes Status: Acute Assessment and plan: Patient seen and examined independently. History, review of systems and physical exam findings of PA verified. All pertinent imaging reviewed. I am in agreement with the assessment and plan as outlined by our Urologic Surgery Department Physician Boring And Filling Machine Operator, Anne. I was involved and present for the entire procedure mentioned above including aspiration with diagnosis of ischemic priapism through the placement of ice packs. Additionally, I followed up the patient the same evening observing sustained decreased erection at roughly 60%. Exam Initial Vital Signs Temp Pulse Resp BP Pulse Ox 99.4 F 110 20 121/82 93 02/17/18 19:59 18 19:59 02/17/18 19:59 02/17/18 19:59 02/17/18 19:59 Urology Results - Labs 02/22/18 03:47 02/22/18 03:47 Abnormal lab results RBC 4.10 M/mcL (4.19-5.50) L 02/22/18 03:47 Hgb 11.1 g/dL (12.9-16.9) L 02/22/18 03:47 Hct 35.8 % (37.5-50.1) L 02/22/18 03:47 MCH 27.1 pg (28.0-33.3) L 02/22/18 03:47 MCHC 31.0 g/dL (31.6-35.5) L 02/22/18 03:47 MPV 9.0 fL (9.4-12.4) L 02/22/18 03:47 ABG pCO2 60 mmHg (35-45) H 02/22/18 04:56 ABG pO2 76 mmHg (85-104) L 02/22/18 04:56 ABG HCO3 36 mEq/L (21-27) H 02/22/18 04:56 ABG Total CO2 37 mEq/L (20-26) H 02/22/18 04:56 ABG O2 Saturation 94 % (95-98) L 02/22/18 04:56 ABG Base Excess 9 mEq/L (-2 to 3) H 02/22/18 04:56 Carbon Dioxide 30 mEq/L (23-29) H 02/22/18 03:47 BUN 21 mg/dL (6-20) H 02/22/18 03:47 Creatinine 0.66 mg/dL (0.70-1.30) L 02/22/18 03:47 BUN/Creatinine Ratio 32 (6-26) H 02/22/18 03:47 Glucose 137 mg/dL (70-105) H 02/22/18 03:47 POC Glucose 110 mg/dL (70-99) H 02/22/18 18:07 Hemoglobin A1c 6.1 % (-5.6) H 02/18/18 07:02 Globulin 3.6 g/dL (2.4-3.5) H 02/20/18 03:52 Diabetes panel 02/22/18 Range/Units 03:47 Sodium 142 (136-145) mEq/L Potassium 4.5 (3.5-5.1) mEq/L Chloride 105 (98-107) mEq/L Carbon Dioxide 30 H (23-29) mEq/L BUN 21 H (6-20) mg/dL Creatinine 0.66 L (0.70-1.30) mg/dL Glucose 137 H (70-105) mg/dL Calcium 9.0 (8.6-10.3) mg/dL Calcium panel 02/22/18 Range/Units 03:47 Calcium 9.0 (8.6-10.3) mg/dL Phosphorus 3.3 (2.7-4.5) mg/dL Pituitary panel 02/22/18 Range/Units 03:47 Sodium 142 (136-145) mEq/L Potassium 4.5 (3.5-5.1) mEq/L Chloride 105 (98-107) mEq/L Carbon Dioxide 30 H (23-29) mEq/L BUN 21 H (6-20) mg/dL Creatinine 0.66 L (0.70-1.30) mg/dL Glucose 137 H (70-105) mg/dL Calcium 9.0 (8.6-10.3) mg/dL Adrenal panel 02/22/18 Range/Units 03:47 Sodium 142 (136-145) mEq/L Potassium 4.5 (3.5-5.1) mEq/L Chloride 105 (98-107) mEq/L Carbon Dioxide 30 H (23-29) mEq/L BUN 21 H (6-20) mg/dL Creatinine 0.66 L (0.70-1.30) mg/dL Glucose 137 H (70-105) mg/dL Calcium 9.0 (8.6-10.3) mg/dL All other labs normal.
[2018-02-22] MEDS ORDERED: Furosemide 20 MG/2 ML VIAL IVP ONE (15:02)
[2018-02-22] MEDS: Furosemide 20 MG/2 ML VIAL IVP SCH (18:23)
[2018-02-22] MEDS: Folic Acid 1 MG TABLET PO SCH (19:46)
[2018-02-22] MEDS: Multivit/Ca/Min/Fe/FA 1 TAB TABLET PO SCH (19:46)
[2018-02-22] MEDS: Thiamine (B-1) 100 MG TABLET PO SCH (19:46)
[2018-02-22] MEDS: FLUoxetine 20 MG CAPSULE PO SCH (19:46)
[2018-02-23] MEDS: Levalbuterol Neb 0.63 MG/3 ML IH SCH ×4 (03:11→22:01)
[2018-02-23] MEDS: Artificial Tears SOLN 15 ML BOTTLE BOTH EYES SCH ×6 (03:59→23:08)
[2018-02-23 04:28] LABS: ABG Base Excess 13 mEq/L (-2 to 3); ABG HCO3 40 mEq/L (21-27); ABG Oxygen Saturation 92 % (95-98); ABG PCO2 63 mmHg (35-45); ABG PH 7.41 pH Units (7.32-7.45); ABG PO2 65 mmHg (85-104); ABG TCO2 42 mEq/L (20-26); Blood Gas Modality PRVC; Blood Gas PEEP 5 cm H2O; Blood Gas Respiration Rate 21; Blood Gas VT 380 cc
[2018-02-23] MEDS: Pantoprazole 40 MG VIAL IVP SCH (05:08)
[2018-02-23] MEDS: *HR* Heparin 5,000 UNIT/ML VIAL SQ SCH ×3 (05:08→17:51)
[2018-02-23] MEDS: Midazolam HCl 100 MG in 0.9 % Sodium Chloride 80 ML IVC SCH (05:25)
[2018-02-23 05:36] LABS: Basophils % 0.2 %; Eosinophils % 0.3 %; Hematocrit 32.9 % (37.5-50.1); Hemoglobin 10.5 g/dL (12.9-16.9); Immature Granulocytes % 1.3 % (0-4); Lymphocytes # 1.6 K/mcL (0.6-4.6); Lymphocytes % 17.7 %; Mean Corpuscular HGB Conc 31.9 g/dL (31.6-35.5); Mean Corpuscular Hemoglobin 27.3 pg (28.0-33.3); Mean Corpuscular Volume 85.5 fL (83.0-100.0); Mean Platelet Volume 8.9 fL (9.4-12.4); Monocytes # 0.7 K/mcL (0.0-1.3); Neutrophils # 6.8 K/mcL (1.6-8.9); Platelet Count 367 K/mcL (140-400); Red Blood Count 3.85 M/mcL (4.19-5.50); Red Cell Distribution Width 13.4 % (11.5-14.5); Segmented Neutrophils % 73.5 %
[2018-02-23 05:57] LABS: BUN/Creatinine Ratio 38 (6-26); Blood Urea Nitrogen 26 mg/dL (6-20); Calcium 9.2 mg/dL (8.6-10.3); Carbon Dioxide 33 mEq/L (23-29); Chloride 100 mEq/L (98-107); Glucose 128 mg/dL (70-105); Magnesium 2.7 mg/dL (1.6-2.6); Osmolality,Calculated 296 (280-300); Phosphorous 4.2 mg/dL (2.7-4.5); Potassium 4.2 mEq/L (3.5-5.1); Sodium 140 mEq/L (136-145); eGFR For Non-African Americans > 60 (> 60)
--- NOTE | 2018-02-23 07:05 | Pulmonology Progress Note ---
<Carina Agustin - Last Filed: 02/23/18 10:43> Date of Encounter: 02/23/18 Time of Encounter: 07:00 Assessment and Plan (1) Acute respiratory failure with hypoxia and hypercapnia Current Visit: Yes Status: Acute Likely secondary to pneumonia complicated by ARDS Patient was intubated under deep sedation: fentanyl, versed, propofol, precedex. Currently on fentanyl, versed, and propofol. Today, ABG shows pH 7.41, pCO2 elevated at 63, pO2 decreased at 65, HCO3 elevated at 40. Ventilator settings optimized to RR 18 and tidal volume 380 for ARDS management. This morning, CXR shows ARDS that is improved. Lung sounds are clear and im proved. Extubated today. Stop IV steroids. Continue bronchodilators. Also see plan#2 (2) Healthcare-associated pneumonia Current Visit: Yes Status: Acute Patient presented with cough. Possibly aspiration. Recent hospitalization. Respiratory panel was negative. Legionella and Strep pneumoniae are negative. Blood culture drawn 02/17 x2 sets are NGTD. CXR 02/17 showed bilateral ground glass opacities. CTA chest shows diffuse alveolar damage, multifocal dense consolidations. Could represent acute interstitial pneumonia vs ARDS. CXR 02/22 shows ARDS that is improved. Continue day 6 of vancomycin. Continue day 7 of zosyn. (3) Acute respiratory distress syndrome (ARDS) Current Visit: Yes Status: Acute Likely secondary to bilateral pneumonia. CTA chest shows diffuse alveolar damage, multifocal dense consolidations. Could represent acute interstitial pneumonia vs ARDS. CXR 02/22 shows ARDS that is improved. CXR 02/23 shows ARDS that is improved from 02/22. Patient is mechanically ventilated. Stop IV steroids. Continue IV Lasix. Also see plan #1. (4) Alcohol withdrawal Current Visit: No Status: Acute History of heavy alcohol use, 1-2 cases of beer daily. [facility] protocol. Thiamine/folate/multivitamins. Qualifiers: Complication of substance-induced condition: uncomplicated Qualified Code(s): F10.230 - Alcohol dependence with withdrawal, uncomplicated (5) Priapism Current Visit: Yes Status: Acute Patient had an erection starting 02/22 04:00. Had penile aspiration with phenylephrine injections. Erection is sustained but improved. Urology consulted and following. (6) Anxiety Current Visit: No Status: Chronic Continue home Prozac. (7) Tobacco dependence Current Visit: Yes Status: Chronic Nicotine patch (8) DVT prophylaxis Current Visit: No Status: Acute heparin SQ Subjective Interval history: Patient seen and examined. Patient is intubated under sedation. Patient wakes up but soon falls back asleep. Patient can follow commands. Patient cannot provide any history or ROS. After extubation, patient states he feels fine. Admits some shortness of breath. Denies any other complaints. Denies penile pain or discomfort. Objective PUL Vital signs: Last Vital Signs Temp 98.9 F 02/23/18 05:42 Pulse 66 02/23/18 06:00 Resp 18 02/23/18 06:18 BP 102/62 02/23/18 06:00 Pulse Ox 93 02/23/18 06:18 General appearance: no acute distress, other (under sedation but wakes easily ) Eyes: nonicteric Neck: supple Effort: normal Auscultation: bilateral: clear Cardiovascular: regular rate and rhythm Gastrointestinal: normoactive bowel sounds, soft, non-tender Integumentary: normal Extremities: no cyanosis, no edema, no clubbing, pink and warm Musculoskeletal: no deformities unable to assess due to mental status Penis is still erect but improved from yesterday. Heredia catheter in place. No sign of bleeding or infection. Ventilator Settings Ventilator Settings: Ventilator Settings, Last 8 Hours Ventilator Tidal Volume 380 Setting Ventilator Tidal Volume 380 Setting Ventilator Tidal Volume 380 Setting Ventilator Tidal Volume 380 Setting Ventilator Tidal Volume 380 Setting Ventilator Tidal Volume 380 Setting Ventilator Tidal Volume 380 Setting Ventilator Tidal Volume 380 Setting Ventilator Tidal Volume 380 Setting Ventilator Tidal Volume 380 Setting Ventilator Tidal Volume 380 Setting Ventilator Tidal Volume 380 Setting Ventilator Respiratory Rate 21 Setting Ventilator Respiratory Rate 18 Setting Ventilator Respiratory Rate 21 Setting Ventilator Respiratory Rate 21 Setting Ventilator Respiratory Rate 21 Setting Ventilator Respiratory Rate 21 Setting Ventilator Respiratory Rate 21 Setting Ventilator Respiratory Rate 21 Setting Ventilator Respiratory Rate 21 Setting Ventilator Respiratory Rate 21 Setting Ventilator Respiratory Rate 21 Setting Ventilator Respiratory Rate 21 Setting Actual Respiratory Rate 21 Actual Respiratory Rate 18 Actual Respiratory Rate 21 Actual Respiratory Rate 21 Actual Respiratory Rate 21 Actual Respiratory Rate 21 Actual Respiratory Rate 21 Actual Respiratory Rate 21 Actual Respiratory Rate 21 Actual Respiratory Rate 21 Actual Respiratory Rate 21 Positive End Expiratory 5 Pressure Positive End Expiratory 5 Pressure Positive End Expiratory 5 Pressure Positive End Expiratory 5 Pressure Positive End Expiratory 5 Pressure Positive End Expiratory 5 Pressure Positive End Expiratory 5 Pressure Positive End Expiratory 5 Pressure Positive End Expiratory 5 Pressure Positive End Expiratory 5 Pressure Positive End Expiratory 5 Pressure Positive End Expiratory 5 Pressure Peak Inspiratory Airway 32 Pressure Peak Inspiratory Airway 32 Pressure Peak Inspiratory Airway 32 Pressure Peak Inspiratory Airway 26 Pressure Peak Inspiratory Airway 31 Pressure Peak Inspiratory Airway 31 Pressure Peak Inspiratory Airway 29 Pressure Peak Inspiratory Airway 29 Pressure Peak Inspiratory Airway 29 Pressure Peak Inspiratory Airway 29 Pressure Peak Inspiratory Airway 29 Pressure Results - Laboratory Findings CBC and BMP: 02/23/18 05:24 02/23/18 05:24 ABG ABG pH 7.41 pH Units (7.32-7.45) 02/23/18 04:24 ABG pCO2 63 mmHg (35-45) H 02/23/18 04:24 ABG pO2 65 mmHg (85-104) L 02/23/18 04:24 ABG O2 Saturation 92 % (95-98) L 02/23/18 04:24 Abnormal lab findings: Abnormal lab results RBC 3.85 M/mcL (4.19-5.50) L 02/23/18 05:24 Hgb 10.5 g/dL (12.9-16.9) L 02/23/18 05:24 Hct 32.9 % (37.5-50.1) L 02/23/18 05:24 MCH 27.3 pg (28.0-33.3) L 02/23/18 05:24 MPV 8.9 fL (9.4-12.4) L 02/23/18 05:24 ABG pCO2 63 mmHg (35-45) H 02/23/18 04:24 ABG pO2 65 mmHg (85-104) L 02/23/18 04:24 ABG HCO3 40 mEq/L (21-27) H 02/23/18 04:24 ABG Total CO2 42 mEq/L (20-26) H 02/23/18 04:24 ABG O2 Saturation 92 % (95-98) L 02/23/18 04:24 ABG Base Excess 13 mEq/L (-2 to 3) H 02/23/18 04:24 Carbon Dioxide 33 mEq/L (23-29) H 02/23/18 05:24 BUN 26 mg/dL (6-20) H 02/23/18 05:24 Creatinine 0.69 mg/dL (0.70-1.30) L 02/23/18 05:24 BUN/Creatinine Ratio 38 (6-26) H 02/23/18 05:24 Glucose 128 mg/dL (70-105) H 02/23/18 05:24 POC Glucose 120 mg/dL (70-99) H 02/23/18 05:50 Hemoglobin A1c 6.1 % (-5.6) H 02/18/18 07:02 Magnesium 2.7 mg/dL (1.6-2.6) H 02/23/18 05:24 Globulin 3.6 g/dL (2.4-3.5) H 02/20/18 03:52 Vancomycin Trough 16 mcg/mL (5-10) H 02/23/18 05:25 - Microbiology Findings Microbiology Findings: Microbiology, Last 48 Hours 02/17/18 22:51 Blood Culture - Final Peripheral Venipuncture No growth. Final report. 02/17/18 22:51 Blood Culture - Final Peripheral Venipuncture No growth. Final report. - Clinical Findings Intake & Output: Intake & Output 02/22/18 02/22/18 02/23/18 15:59 23:59 07:59 Intake Total 478 / 478 634 / 634 517 / 517 Output Total 550 / 550 2270 / 2270 650 / 650 Balance -72 / -72 -1636 / -1636 -133 / -133 Weight 82.6 kg Consult Discharge Plan - Plan Referrals: NONE,PCP [Primary Care Provider] - <Dejuan Knox - Last Filed: 02/23/18 22:42> Date of Encounter: 02/23/18 Objective PUL Vital signs: Last Vital Signs Temp 98.4 F 02/23/18 08:12 Pulse 66 02/23/18 06:00 Resp 12 02/23/18 08:19 BP 103/66 02/23/18 07:45 Pulse Ox 99 02/23/18 07:45 Ventilator Settings Ventilator Settings: Ventilator Settings, Last 8 Hours Ventilator Tidal Volume 380 Setting Ventilator Tidal Volume 380 Setting Ventilator Tidal Volume 380 Setting Ventilator Tidal Volume 380 Setting Ventilator Tidal Volume 380 Setting Ventilator Tidal Volume 380 Setting Ventilator Tidal Volume 380 Setting Ventilator Tidal Volume 380 Setting Ventilator Tidal Volume 380 Setting Ventilator Tidal Volume 380 Setting Ventilator Respiratory Rate 21 Setting Ventilator Respiratory Rate 18 Setting Ventilator Respiratory Rate 21 Setting Ventilator Respiratory Rate 21 Setting Ventilator Respiratory Rate 21 Setting Ventilator Respiratory Rate 21 Setting Ventilator Respiratory Rate 21 Setting Ventilator Respiratory Rate 21 Setting Ventilator Respiratory Rate 21 Setting Ventilator Respiratory Rate 21 Setting Actual Respiratory Rate 18 Actual Respiratory Rate 21 Actual Respiratory Rate 18 Actual Respiratory Rate 21 Actual Respiratory Rate 21 Actual Respiratory Rate 21 Actual Respiratory Rate 21 Actual Respiratory Rate 21 Actual Respiratory Rate 21 Actual Respiratory Rate 21 Positive End Expiratory 5 Pressure Positive End Expiratory 5 Pressure Positive End Expiratory 5 Pressure Positive End Expiratory 5 Pressure Positive End Expiratory 5 Pressure Positive End Expiratory 5 Pressure Positive End Expiratory 5 Pressure Positive End Expiratory 5 Pressure Positive End Expiratory 5 Pressure Positive End Expiratory 5 Pressure Positive End Expiratory 5 Pressure Peak Inspiratory Airway 16 Pressure Peak Inspiratory Airway 32 Pressure Peak Inspiratory Airway 32 Pressure Peak Inspiratory Airway 32 Pressure Peak Inspiratory Airway 26 Pressure Peak Inspiratory Airway 31 Pressure Peak Inspiratory Airway 31 Pressure Peak Inspiratory Airway 29 Pressure Peak Inspiratory Airway 29 Pressure Peak Inspiratory Airway 29 Pressure Results - Laboratory Findings CBC and BMP: 02/23/18 05:24 02/23/18 05:24 ABG ABG pH 7.41 pH Units (7.32-7.45) 02/23/18 04:24 ABG pCO2 63 mmHg (35-45) H 02/23/18 04:24 ABG pO2 65 mmHg (85-104) L 02/23/18 04:24 ABG O2 Saturation 92 % (95-98) L 02/23/18 04:24 Abnormal lab findings: Abnormal lab results RBC 3.85 M/mcL (4.19-5.50) L 02/23/18 05:24 Hgb 10.5 g/dL (12.9-16.9) L 02/23/18 05:24 Hct 32.9 % (37.5-50.1) L 02/23/18 05:24 MCH 27.3 pg (28.0-33.3) L 02/23/18 05:24 MPV 8.9 fL (9.4-12.4) L 02/23/18 05:24 ABG pCO2 63 mmHg (35-45) H 02/23/18 04:24 ABG pO2 65 mmHg (85-104) L 02/23/18 04:24 ABG HCO3 40 mEq/L (21-27) H 02/23/18 04:24 ABG Total CO2 42 mEq/L (20-26) H 02/23/18 04:24 ABG O2 Saturation 92 % (95-98) L 02/23/18 04:24 ABG Base Excess 13 mEq/L (-2 to 3) H 02/23/18 04:24 Carbon Dioxide 33 mEq/L (23-29) H 02/23/18 05:24 BUN 26 mg/dL (6-20) H 02/23/18 05:24 Creatinine 0.69 mg/dL (0.70-1.30) L 02/23/18 05:24 BUN/Creatinine Ratio 38 (6-26) H 02/23/18 05:24 Glucose 128 mg/dL (70-105) H 02/23/18 05:24 POC Glucose 120 mg/dL (70-99) H 02/23/18 05:50 Hemoglobin A1c 6.1 % (-5.6) H 02/18/18 07:02 Magnesium 2.7 mg/dL (1.6-2.6) H 02/23/18 05:24 Globulin 3.6 g/dL (2.4-3.5) H 02/20/18 03:52 Vancomycin Trough 16 mcg/mL (5-10) H 02/23/18 05:25 - Microbiology Findings Microbiology Findings: Microbiology, Last 48 Hours 02/17/18 22:51 Blood Culture - Final Peripheral Venipuncture No growth. Final report. 02/17/18 22:51 Blood Culture - Final Peripheral Venipuncture No growth. Final report. - Clinical Findings Intake & Output: Intake & Output 02/22/18 02/23/18 02/23/18 23:59 07:59 15:59 Intake Total 634 / 634 567 / 567 Output Total 2270 / 2270 650 / 650 250 / 250 Balance -1636 / -1636 -83 / -83 -250 / -250 Weight 82.6 kg - Attending Attestation I examined this patient and my medical decision-making was reviewed with the Resident Physician. I agree with the documented findings, disposition and treatment plan as described except to the extent set forth below. Patient seen and examined. Labs, radiology, chart personally reviewed. 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 Patient still requiring significant amount of sedation for the vent synchrony and I have lowered his respiratory rate due to his alkalosis and I suspect from reviewing case chest x- ray diuresis has helped and my review did not is improvement and since he is requiring minimal PEEP and FiO2 and his plateau pressure is less than 30, then we will arrange for spontaneous breathing trial and expect we should be able to extubate him. Subsequently patient was successfully extubated and SPO2 to keep > 90% Cardiovascular: stable GI: Nutrition per dietary and GI prophylaxis per routine Heme: DVT prophylaxis per routine ID: Continue antibiotics and plan to de-escalation Renal; urine out put and renal funtion reviewed. Continue diuresis as tolerated and monitor his electrolytes. Urology is following up. Patient didn't respond to conservative treatment and he was taken to surgery. Endorcine: blood glucose is monitored. We will stop systemic steroid Lines: all lines checked and no evidence of infections Skin: skin care to prevent pressure ulcers per nursing routine care I spent 35 min of Critical Care time with this patient. It involved decision making of high complexity to assess, manipulate, and support vital organ system failure and/or to prevent further life threatening deterioration of the patient's condition. The time involved in the performance of separately reportable procedures was not counted toward critical care time.
[2018-02-23] MEDS: FentaNYL (PF) 2,500 MCG in EMPTY BAG 1 EACH IVC SCH (07:10)
[2018-02-23] MEDS: FLUoxetine 20 MG CAPSULE PO SCH (08:13)
[2018-02-23] MEDS: Folic Acid 1 MG TABLET PO SCH (08:13)
[2018-02-23] MEDS: Chlorhexidine Rinse 15 ML MOUTHWASH MM SCH ×2 (08:13→19:39)
[2018-02-23] MEDS: Multivit/Ca/Min/Fe/FA 1 TAB TABLET PO SCH (08:13)
[2018-02-23] MEDS: Furosemide 20 MG/2 ML VIAL IVP SCH (08:14)
[2018-02-23] MEDS: Nicotine 21 MG PATCH.TD24 TD SCH (08:14)
[2018-02-23] MEDS: Piperacillin/Tazobactam 3.375 GM in 0.9 % Sodium Chloride Mini Bag 100 ML IVPB SCH ×3 (08:14→23:07)
[2018-02-23] MEDS: Thiamine (B-1) 100 MG TABLET PO SCH (08:16)
--- NOTE | 2018-02-23 08:47 | Urology Progress Note ---
Date of Encounter: 02/23/18 Time of Encounter: 07:45 - Assessment and Plan (1) Priapism Current Visit: Yes Status: Acute Assessment and plan: Patient is a 37-year-old male who presents the history of priapism. Patient underwent evacuation, irrigation, and 5 phenylephrine injections yesterday afternoon. Erection initially decreased by 60%, but is now re-apparent. Plan to proceed with phenylephrine 500mcg/mL injections x 4 and reevaluate. Patient is aware that if injections do not resolve priapism, he may undergo shunt pr ocedure in the operating room. Progress Note Narrative: Patient seen and examined lying in bed in no apparent distress. Nurse reports sedation has been reversed, and patient will likely be extubated today. Nurse reports arousal has returned with patient awakening. Objective Initial Vital Signs Temp Pulse Resp BP Pulse Ox 99.4 F 110 20 121/82 93 02/17/18 19:59 02/17/18 19:59 02/17/18 19:59 02/17/18 19:59 02/17/18 19:59 - General physical appearance Present: well developed, no distress, no pain - Respiratory Present: normal expansion - Genitourinary Present: other (erect penis with vaughn insitu; no active bleeding ) - Integumentary Present: no rash, no abnormal pigmentation - Psychiatric Absent: oriented to time, oriented to person, oriented to place, speech is normal, memory intact - Labs 02/23/18 05:24 02/23/18 05:24 Diabetes panel 02/23/18 Range/Units 05:24 Sodium 140 (136-145) mEq/L Potassium 4.2 (3.5-5.1) mEq/L Chloride 100 (98-107) mEq/L Carbon Dioxide 33 H (23-29) mEq/L BUN 26 H (6-20) mg/dL Creatinine 0.69 L (0.70-1.30) mg/dL Glucose 128 H (70-105) mg/dL Calcium 9.2 (8.6-10.3) mg/dL Calcium panel 02/23/18 Range/Units 05:24 Calcium 9.2 (8.6-10.3) mg/dL Phosphorus 4.2 (2.7-4.5) mg/dL Pituitary panel 02/23/18 Range/Units 05:24 Sodium 140 (136-145) mEq/L Potassium 4.2 (3.5-5.1) mEq/L Chloride 100 (98-107) mEq/L Carbon Dioxide 33 H (23-29) mEq/L BUN 26 H (6-20) mg/dL Creatinine 0.69 L (0.70-1.30) mg/dL Glucose 128 H (70-105) mg/dL Calcium 9.2 (8.6-10.3) mg/dL Adrenal panel 02/23/18 Range/Units 05:24 Sodium 140 (136-145) mEq/L Potassium 4.2 (3.5-5.1) mEq/L Chloride 100 (98-107) mEq/L Carbon Dioxide 33 H (23-29) mEq/L BUN 26 H (6-20) mg/dL Creatinine 0.69 L (0.70-1.30) mg/dL Glucose 128 H (70-105) mg/dL Calcium 9.2 (8.6-10.3) mg/dL Procedures:Urology - Penile Procedure Consent obtained: verbal consent Time out performed: Yes (verified patient name, , medication) Indication: priapism management Amount of anesthesia used (mLs): 1 (Ativan 1mg IV) Priapism management: phenylephrine injection (500mcg/mL; 4-Phenylephrine 500mcg per 1mL injections delivered in 5 minute intervals at 10:40, 10:45, 10:50, and 10:55) Patient tolerated procedure: well, no complications Complications: persistent priapism Additional comments: Will reevaluate with Dr. Krueger in one hour. Consult Discharge Plan - Plan Referrals: NONE,PCP [Primary Care Provider] -
[2018-02-23] MEDS ORDERED: Aminoglycoside Consult 1 EACH MC ONE (09:36)
[2018-02-23] MEDS ORDERED: SODIUM CHLORIDE IC ONE (09:44)
[2018-02-23] MEDS ORDERED: PHENYLEPHRINE IC ONE (09:44)
[2018-02-23] MEDS: Vecuronium 50 MG in 0.9 % Sodium Chloride 200 ML IVC SCH (10:45)
--- NOTE | 2018-02-23 13:58 | Anesthesia Evaluation PreOp ---
<Sachin Wing - Last Filed: 02/23/18 15:00> Date of Encounter: 02/23/18 Time of Encounter: 13:56 - Past History Planned Operation: Penile shunt for Priapism Cardiac History: HTN Pulmonary History: Smoker, Other (Recent pneumonia, developed ARDS, extubated today) CLINICAL APPEALS RN History: Denies Any Significant HX Other Medical History: Denies Any Significant HX, Other (priapism) Anesthesia History: Past Anesthesia (Excision Soft Tissue Mass Bilateral Feet) Alcohol Use: heavy Drug use: none Medications and Allergies Lisinopril [Zestril] 10 mg PO DAILY 09/29/17 [History] Aspirin Enteric Coated [Aspirin EC] 81 mg PO DAILY #30 tablet. 02/10/18 [Rx] FLUoxetine HCl [PROzac] 60 mg PO DAILY 02/18/18 [History] Metoprolol [Lopressor] 12.5 mg PO BID 02/18/18 [History] hydrOXYzine pamoate [HydrOXYzine Pamoate] 50 mg PO TID PRN 02/18/18 [History] Allergy/AdvReac Type Severity Reaction Status Date / Time No Known Allergies Allergy Verified 03/07/17 17:38 - Meds/Allergy Pre-op Review Medications Reviewed: Yes Allergies Reviewed: Yes Beta Blockers on Current Med List: Yes Anesthesia Results - Labs 02/23/18 05:24 02/23/18 05:24 - Imaging EKG: report reviewed (ST) Anesthesia Exam Vital Signs/O2 Sat, Most Current Temp Pulse Resp BP Pulse Ox 98.0 F 102 21 151/102 99 02/23/18 12:07 02/23/18 13:00 02/23/18 13:00 02/23/18 13:00 02/23/18 13:00 NPO (# of Hours): > 8 hrs Pain Scale: 0 Pain Scale Used: Numeric (1 - 10) - HEENT Pupil (Motor): Pupils equal, EOMI Mallampati: III Teeth: Normal (Cipped upper front tooth) Oral Opening: Greater than 3 - CLINICAL APPEALS RN LOC: Oriented CLINICAL APPEALS RN Motor: Normal RUE, Normal LUE, Normal RLE, Normal LLE, Normal Face CLINICAL APPEALS RN Sensory: Normal: RUE, LUE, RLE, LLE, Face - Cardiac Rhythm: Regular Murmur: None JVD: No Carotid Bruit: No - Pulmonary Breath Sounds: bilateral Clear Respiratory Effort: Symmetrical Anesthesia Assess/Plan ASA Score: 2 Level of consciousness: Cooperative Anesthetic Plan: General Autologous Blood: Yes Monitoring Plan: Standard Monitors Recovery Plan: PACU <RitaMary A - Last Filed: 02/23/18 15:34> Date of Encounter: 02/23/18 - Past History Pulmonary History: Other CLINICAL APPEALS RN History: Denies Any Significant HX Other Medical History: GERD Anesthesia History: No Prior Anesthetic Complications Alcohol Use: heavy (12 pack/day) Anesthesia Results - Labs 02/23/18 05:24 02/23/18 05:24 Anesthesia Exam - HEENT Teeth: Poor dentition - Pulmonary Breath Sounds: bilateral Rales, bilateral Rhonchi Respiratory Effort: Symmetrical Anesthesia Assess/Plan ASA Score: 3 Level of consciousness: Cooperative Anesthetic Plan: General Autologous Blood: Yes Monitoring Plan: Standard Monitors Recovery Plan: PACU (Discussed GA, risks. Agreed to proceed.)
[2018-02-23] MEDS ORDERED: Dexamethasone 4 MG/ML VIAL ONE (15:09)
[2018-02-23] MEDS ORDERED: Ondansetron 4 MG/2 ML VIAL ONE (15:09)
[2018-02-23] MEDS ORDERED: Lidocaine -MPF 2% 2 ML VIAL ONE (15:09)
[2018-02-23] MEDS ORDERED: *HR* Propofol 200 MG/20 ML VIAL IVP ONE (15:11)
[2018-02-23] MEDS ORDERED: *HR* FentaNYL (PF) 100 MCG/2 ML VIAL ONE (15:11)
[2018-02-23] MEDS ORDERED: Ipratropium/Albuterol Neb 3 ML ONE (15:20)
[2018-02-23] MEDS ORDERED: *HR* Midazolam HCl 2 MG/2 ML VIAL ONE (15:22)
[2018-02-23] MEDS ORDERED: Lidocaine 1% 20 ML MDV ONE (15:23)
[2018-02-23] MEDS ORDERED: *HR* PHENYLEPHRINE 1,000 MCG/10 ML SYRINGE IVP ONE (15:59)
[2018-02-23] MEDS ORDERED: *HR* Promethazine 25 MG/ML VIAL IVP PRN ×2 (16:13→17:29)
[2018-02-23] MEDS ORDERED: *HR* HYDROmorphone (PF) 1 MG/ML SYRINGE IVP PRN ×2 (16:13→17:29)
[2018-02-23] MEDS ORDERED: *HR* OxyCODONE Immed Rel 5 MG TABLET PO PRN ×2 (16:13→17:29)
[2018-02-23] MEDS ORDERED: *HR* Meperidine 25 MG/ML SYRINGE IVP PRN ×2 (16:13→17:29)
[2018-02-23] MEDS ORDERED: Ondansetron 4 MG/2 ML VIAL IVP ONE (16:13)
--- NOTE | 2018-02-23 16:33 | Operative Note ---
Date of procedure: 02/23/18 Pre-op diagnosis: Priapism Post-op diagnosis: other (Same plus questionable urinary tract infection) Procedure: Corporal cavernosal-glanular shunt Implants: none Complications: none Anesthesia: ZOILA Surgeon: Glen Krueger Was there an housing assistant present: Yes Sales Floor Team Member: Bryanna Rodríguez (No qualified surgical residents were available to assist in the case) Estimated blood loss (cc): 20 Specimen: Urine culture - sterile Condition: stable Disposition: PACU Procedure in Detail: Mr. Vera is a 37-year-old gentleman with priapism which has been refractory to aspiration, irrigation and phenylephrine injection 2 sets. He was in the ICU with ARDS syndrome secondary to DTs with aspiration pneumonia. Patient is now stabilized and was extubated this morning. After discussing the condition with both patient and he presents for surgical address of refractory priapism. The patient brought the operating theater placed on table in supine position. He was identified by name date of and administered a general anesthetic. The patient was prepped and draped in normal sterile fashion. Using a 15 blade scalpel and inverted semilunate incision was made on the dorsal aspect to glans near the melgar. This incision was approximately 1 cm in length. The subcutaneous tissues below were dissected with accommodation of sharp and blunt dissection using Metzenbaum scissors. Once reach a level of the corporal bodies the tips could be easily felt using a finger. Sharp scissors were used to enter the tip of the left corporal body. This piercing incision was then spread to increase the diameter. The smooth Metzenbaums were then easily passed through this incision midway through the level of the penile portion of the left corporal body. At this point, with manual pressure old dark blood was force from the corpora cavernosum through the incision. Visual inspection confirmed a nice shunt diameter for adequate decompression. The skin incision was closed w ith running 4-0 chromic suture. The corporal cavernosal to corporal spongiosum fistula was not closed. The penis was observed for a full 10 minutes. The patient maintained a 30% erection throughout this 10 minute observation without progression of erection. This was felt to be a satisfactory result. The patient's urine was cloudy in the Heredia catheter bag upon arrival to the OR. The old Heredia catheter was removed prior to prepping the patient for surgery. At the end of the case we placed a new Heredia catheter and a sterile urine specimen was obtained for culture from the new Heredia catheter. Antibiotic ointment and sterile fluffs were applied to the surgical excision. This ended the operative procedure.
[2018-02-23] MEDS ORDERED: Artificial Tears SOLN 15 ML BOTTLE BOTH EYES PRN (17:29)
[2018-02-23] MEDS ORDERED: Dexmedetomidine HCl 400 MCG/100 ML MLS IVC SCH (17:29)
[2018-02-23] MEDS ORDERED: Naloxone 0.4 MG/ML INJ IVP PRN (17:29)
[2018-02-23] MEDS ORDERED: Acetaminophen 325 MG TABLET PO PRN (17:29)
[2018-02-23] MEDS ORDERED: *HR* Metoprolol 5 MG/5 ML VIAL IVP PRN (17:29)
[2018-02-23] MEDS ORDERED: *HR* LORazepam 2 MG/ML VIAL IVP PRN ×2 (17:29)
[2018-02-23] MEDS ORDERED: Ipratropium Neb 0.5 MG NEBULIZER IH PRN (17:29)
[2018-02-23] MEDS: *HR* LORazepam 2 MG/ML VIAL IVP PRN (19:38)
[2018-02-24] MEDS: Artificial Tears SOLN 15 ML BOTTLE BOTH EYES SCH ×2 (03:02→08:13)
[2018-02-24] MEDS: *HR* LORazepam 2 MG/ML VIAL IVP PRN ×2 (03:02→13:07)
[2018-02-24 03:25] LABS: Basophils # 0.1 K/mcL (0.0-0.2); Basophils % 0.4 %; Eosinophils # 0.2 K/mcL (0.0-0.6); Eosinophils % 1.3 %; Hematocrit 33.2 % (37.5-50.1); Hemoglobin 10.8 g/dL (12.9-16.9); Immature Granulocytes % 2.1 % (0-4); Lymphocytes # 2.3 K/mcL (0.6-4.6); Lymphocytes % 19.1 %; Mean Corpuscular HGB Conc 32.5 g/dL (31.6-35.5); Mean Corpuscular Hemoglobin 27.4 pg (28.0-33.3); Mean Corpuscular Volume 84.3 fL (83.0-100.0); Mean Platelet Volume 8.7 fL (9.4-12.4); Monocytes # 0.7 K/mcL (0.0-1.3); Monocytes % 5.8 %; Neutrophils # 8.5 K/mcL (1.6-8.9); Platelet Count 369 K/mcL (140-400); Red Blood Count 3.94 M/mcL (4.19-5.50); Red Cell Distribution Width 12.7 % (11.5-14.5); Segmented Neutrophils % 71.3 %
[2018-02-24] MEDS: Levalbuterol Neb 0.63 MG/3 ML IH SCH ×4 (03:35→22:44)
[2018-02-24 03:45] LABS: BUN/Creatinine Ratio 28 (6-26); Blood Urea Nitrogen 20 mg/dL (6-20); Calcium 8.4 mg/dL (8.6-10.3); Carbon Dioxide 31 mEq/L (23-29); Chloride 98 mEq/L (98-107); Glucose 102 mg/dL (70-105); Osmolality,Calculated 285 (280-300); Potassium 3.7 mEq/L (3.5-5.1); Sodium 136 mEq/L (136-145); eGFR For Non-African Americans > 60 (> 60)
[2018-02-24] MEDS: *HR* Heparin 5,000 UNIT/ML VIAL SQ SCH (05:19)
[2018-02-24] MEDS ORDERED: Pantoprazole 40 MG VIAL IVP SCH (06:30)
--- NOTE | 2018-02-24 07:01 | Pulmonology Progress Note ---
<YordanDejuan gonsalez M - Last Filed: 02/24/18 10:05> Date of Encounter: 02/24/18 Objective PUL Vital signs: Last Vital Signs Temp 97.8 F 02/24/18 07:56 Pulse 79 02/24/18 08:00 Resp 22 02/24/18 08:00 BP 159/108 02/24/18 08:00 Pulse Ox 98 02/24/18 08:00 Results - Laboratory Findings CBC and BMP: 02/24/18 03:15 02/24/18 03:15 ABG ABG pH 7.41 pH Units (7.32-7.45) 02/23/18 04:24 ABG pCO2 63 mmHg (35-45) H 02/23/18 04:24 ABG pO2 65 mmHg (85-104) L 02/23/18 04:24 ABG O2 Saturation 92 % (95-98) L 02/23/18 04:24 Abnormal lab findings: Abnormal lab results WBC 11.9 K/mcL (4.3-11.1) H 02/24/18 03:15 RBC 3.94 M/mcL (4.19-5.50) L 02/24/18 03:15 Hgb 10.8 g/dL (12.9-16.9) L 02/24/18 03:15 Hct 33.2 % (37.5-50.1) L 02/24/18 03:15 MCH 27.4 pg (28.0-33.3) L 02/24/18 03:15 MPV 8.7 fL (9.4-12.4) L 02/24/18 03:15 ABG pCO2 63 mmHg (35-45) H 02/23/18 04:24 ABG pO2 65 mmHg (85-104) L 02/23/18 04:24 ABG HCO3 40 mEq/L (21-27) H 02/23/18 04:24 ABG Total CO2 42 mEq/L (20-26) H 02/23/18 04:24 ABG O2 Saturation 92 % (95-98) L 02/23/18 04:24 ABG Base Excess 13 mEq/L (-2 to 3) H 02/23/18 04:24 Carbon Dioxide 31 mEq/L (23-29) H 02/24/18 03:15 BUN/Creatinine Ratio 28 (6-26) H 02/24/18 03:15 POC Glucose 120 mg/dL (70-99) H 02/23/18 23:41 Hemoglobin A1c 6.1 % (-5.6) H 02/18/18 07:02 Calcium 8.4 mg/dL (8.6-10.3) L 02/24/18 03:15 Magnesium 2.7 mg/dL (1.6-2.6) H 02/23/18 05:24 Globulin 3.6 g/dL (2.4-3.5) H 02/20/18 03:52 Vancomycin Trough 16 mcg/mL (5-10) H 02/23/18 05:25 - Microbiology Findings Microbiology Findings: Microbiology, Last 48 Hours 02/17/18 22:51 Blood Culture - Final Peripheral Venipuncture No growth. Final report. 02/17/18 22:51 Blood Culture - Final Peripheral Venipuncture No growth. Final report. - Clinical Findings Intake & Output: Intake & Output 02/23/18 02/24/18 02/24/18 23:59 07:59 15:59 Intake Total 394 / 394 350 / 350 Output Total 430 / 430 850 / 850 Balance -36 / -36 -500 / -500 Weight 85.4 kg Consult Discharge Plan - Plan Referrals: NONE,PCP [Primary Care Provider] - - Attending Attestation I examined this patient and my medical decision-making was reviewed with the Resident Physician. I agree with the documented findings, disposition and treatment plan as described except to the extent set forth below. Patient seen and examined. Labs, radiology, chart personally reviewed. Agree with resident's history and physical, assessment, plan with following comments: CUT PRESSMAN: Patient follows commands, Pulmonary: Acceptable oxygenation and ventilation and continue wean off FiO2 as much as possible Cardiovascular: stable GI: Nutrition per dietary and GI prophylaxis per routine Heme: DVT prophylaxis per routine ID: Continue antibiotics and plan to de-escalation Renal; urine out put and renal funtion reviewed. Patient had surgery by urologist and follow-up by urologist. Endorcine: blood glucose is monitored Lines: all lines checked and no evidence of infections Skin: skin care to prevent pressure ulcers per nursing routine care Issue hemodynamically stable to be transferred to the floor. . <Sonu Guerrero - Last Filed: 02/24/18 11:28> Date of Encounter: 02/24/18 Time of Encounter: 07:00 Assessment and Plan (1) Acute respiratory failure with hypoxia and hypercapnia Current Visit: Yes Status: Acute Acute hypoxic respiratory failure with hypoxia and hypercapnia, largely resolved Respiratory failure was secondary to pneumonia leading to ARDS Patient successfully extubated, continues to maintain adequate oxygenation and ventilation on nasal cannula ABG yesterday demonstrated pH 7.4, PCO2 63, PO2 65, HCO3 40 Treatment of pneumonia with Vancomycin + Zosyn Day 5 Patient did receive several days prior, however there was a gap with days of no treatment At this time it appears that the patient's ARDS has largely resolved, he is appropriate for transfer out of ICU Plan DC Vancomycin, Continue Zosyn Continue PRN Ipratropium + Xopenex Attempt to wean O2 as possible (2) Acute respiratory distress syndrome (ARDS) Current Visit: Yes Status: Acute Likely secondary to bilateral pneumonia, resolved at this time CTA chest shows diffuse alveolar damage, multifocal dense consolidations. Could represent acute interstitial pneumonia vs ARDS. CXR 02/22 shows ARDS that is improved. CXR 02/23 shows ARDS that is improved from 02/22. We will stop IV Lasix today See above for plan (3) Hospital acquired PNA Current Visit: Yes Status: Acute Patient presented with cough, concern for HAP with recent Hospitalization Respiratory panel was negative. Legionella and Strep pneumoniae are negative. Consider aspiration given significant alcohol history and aspiration on intubation attempt Blood culture drawn 02/17 x2 sets are NGTD. CXR 02/17 showed bilateral ground glass opacities. CTA chest shows diffuse alveolar damage, multifocal dense consolidations. Could represent acute interstitial pneumonia vs ARDS. CXR 02/22 shows ARDS that is improved. Vancomycin + Zosyn day 5, due to gap in therapy We will stop Vancomycin today, continue zosyn (4) Alcohol withdrawal Current Visit: Yes Status: Acute History of heavy alcohol use, 1-2 cases of beer daily. CIWA protocol. 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 Urology consulted and following. (6) Anxiety Current Visit: No Status: Chronic Continue home Prozac. (7) Nicotine abuse Current Visit: Yes Status: Acute Nicotine patches prn (8) DVT prophylaxis Current Visit: No Status: Acute SQ Heparin Subjective Principal diagnosis: Acute respiratory failure Interval history: The patient is resting comfortably in bed at time of examination. Overnight he did continue to have an erection which was not relieved from surgical decompression and shunt yesterday. His restaurant status has improved pretty dramatically however though, and he continues to improve throughout the day. His withdrawal signs seem to be improving as well, with only requiring Ativan approximately twice in the past 24 hours. He does continue to have hypertension which can be treated with home medications. He has no other acute complaints at this time. Objective PUL Vital signs: Last Vital Signs Temp 98.5 F 02/24/18 04:25 Pulse 80 02/24/18 06:00 Resp 22 02/24/18 06:00 BP 140/90 02/24/18 06:00 Pulse Ox 94 02/24/18 06:00 Gen: Vitals noted. No acute distress. Eyes: anicteric sclerae, moist conjunctivae; no lid-lag; Pupils equal and reactive to light HENT: Atraumatic; oropharynx clear, mucous membranes are dry and no mucosal ulcerations; normal hard and soft palate. Voice is hoarse Neck: Trachea midline; supple, no thyromegaly or lymphadenopathy Cardiac: RRR, no murmur, +S1/S2 Pulmonary: Patient does have wheezing bilaterally with superimposed mild rhonchi bilaterally right worse than left Abdomen: soft, nontender, no guarding. No masses or hepatosplenomegaly MSK: ROM intact, no joint swelling noted Extremities: no BLE edema, nontender calf, no cyanosis or clubbing Skin: Normal temperature, turgor and texture; no rash, ulcers or subcutaneous nodules : Patient continues to have an erection with ecchymosis present where shots were given. His penile incision inspected, clean without obvious evidence of infection. Heredia in place. Neuro: moves all extremities, no focal deficits. Psych: Appropriate mood and behavior. A&Ox3 Results - Laboratory Findings CBC and BMP: 02/24/18 03:15 02/24/18 03:15 ABG ABG pH 7.41 pH Units (7.32-7.45) 02/23/18 04:24 ABG pCO2 63 mmHg (35-45) H 02/23/18 04:24 ABG pO2 65 mmHg (85-104) L 02/23/18 04:24 ABG O2 Saturation 92 % (95-98) L 02/23/18 04:24 Abnormal lab findings: Abnormal lab results WBC 11.9 K/mcL (4.3-11.1) H 02/24/18 03:15 RBC 3.94 M/mcL (4.19-5.50) L 02/24/18 03:15 Hgb 10.8 g/dL (12.9-16.9) L 02/24/18 03:15 Hct 33.2 % (37.5-50.1) L 02/24/18 03:15 MCH 27.4 pg (28.0-33.3) L 02/24/18 03:15 MPV 8.7 fL (9.4-12.4) L 02/24/18 03:15 ABG pCO2 63 mmHg (35-45) H 02/23/18 04:24 ABG pO2 65 mmHg (85-104) L 02/23/18 04:24 ABG HCO3 40 mEq/L (21-27) H 02/23/18 04:24 ABG Total CO2 42 mEq/L (20-26) H 02/23/18 04:24 ABG O2 Saturation 92 % (95-98) L 02/23/18 04:24 ABG Base Excess 13 mEq/L (-2 to 3) H 02/23/18 04:24 Carbon Dioxide 31 mEq/L (23-29) H 02/24/18 03:15 BUN/Creatinine Ratio 28 (6-26) H 02/24/18 03:15 POC Glucose 120 mg/dL (70-99) H 02/23/18 23:41 Hemoglobin A1c 6.1 % (-5.6) H 02/18/18 07:02 Calcium 8.4 mg/dL (8.6-10.3) L 02/24/18 03:15 Magnesium 2.7 mg/dL (1.6-2.6) H 02/23/18 05:24 Globulin 3.6 g/dL (2.4-3.5) H 02/20/18 03:52 Vancomycin Trough 16 mcg/mL (5-10) H 02/23/18 05:25 - Microbiology Findings Microbiology Findings: Microbiology, Last 48 Hours 02/17/18 22:51 Blood Culture - Final Peripheral Venipuncture No growth. Final report. 02/17/18 22:51 Blood Culture - Final Peripheral Venipuncture No growth. Final report. - Clinical Findings Intake & Output: Intake & Output 02/23/18 02/23/18 02/24/18 15:59 23:59 07:59 Intake Total 1127.2 / 1127.2 394 / 394 350 / 350 Output Total 1350 / 1350 430 / 430 600 / 600 Balance -222.8 / -222.8 -36 / -36 -250 / -250 Weight 85.4 kg
[2018-02-24] MEDS ORDERED: PHENYLEPHRINE IC ONE (07:58)
[2018-02-24] MEDS ORDERED: SODIUM CHLORIDE IC ONE (07:58)
--- NOTE | 2018-02-24 08:04 | Urology Progress Note ---
Date of Encounter: 02/24/18 Time of Encounter: 07:45 - Assessment and Plan (1) Priapism Current Visit: Yes Status: Acute Assessment and plan: Patient is a 37-year-old male who presents one day postoperatively from a penile shunt for priapism. Erection returned postoperatively and was maintained overnight. We will repeat phenylephrine injections 4. We will increase concentration to 1000 g. Progress Note Narrative: POD #1. Patient seen and examined lying in bed in apparent distress. Patient reports penile discomfort. Erection present. Incision clean, dry, intact. Heredia indwelling and draining transparent pink lemonade urine. Objective Initial Vital Signs Temp Pulse Resp BP Pulse Ox 99.4 F 110 20 121/82 93 02/17/18 19:59 02/17/18 19:59 02/17/18 19:59 02/17/18 19:59 02/17/18 19:59 - General physical appearance Present: well developed, no distress, moderate pain - Respiratory Present: normal expansion, normal respiratory effort - Genitourinary Present: other (priapism; penile incision clean, dry, intact ) - Integumentary Present: no rash, no abnormal pigmentation - Musculoskeletal Present: normal posture - Psychiatric Present: oriented to time, oriented to person, oriented to place, speech is normal, memory intact - Labs 02/24/18 03:15 02/24/18 03:15 Diabetes panel 02/24/18 Range/Units 03:15 Sodium 136 (136-145) mEq/L Potassium 3.7 (3.5-5.1) mEq/L Chloride 98 (98-107) mEq/L Carbon Dioxide 31 H (23-29) mEq/L BUN 20 (6-20) mg/dL Creatinine 0.71 (0.70-1.30) mg/dL Glucose 102 (70-105) mg/dL Calcium 8.4 L (8.6-10.3) mg/dL Calcium panel 02/24/18 Range/Units 03:15 Calcium 8.4 L (8.6-10.3) mg/dL Pituitary panel 02/24/18 Range/Units 03:15 Sodium 136 (136-145) mEq/L Potassium 3.7 (3.5-5.1) mEq/L Chloride 98 (98-107) mEq/L Carbon Dioxide 31 H (23-29) mEq/L BUN 20 (6-20) mg/dL Creatinine 0.71 (0.70-1.30) mg/dL Glucose 102 (70-105) mg/dL Calcium 8.4 L (8.6-10.3) mg/dL Adrenal panel 02/24/18 Range/Units 03:15 Sodium 136 (136-145) mEq/L Potassium 3.7 (3.5-5.1) mEq/L Chloride 98 (98-107) mEq/L Carbon Dioxide 31 H (23-29) mEq/L BUN 20 (6-20) mg/dL Creatinine 0.71 (0.70-1.30) mg/dL Glucose 102 (70-105) mg/dL Calcium 8.4 L (8.6-10.3) mg/dL Procedures:Urology - Penile Procedure Consent obtained: verbal consent Time out performed: Yes Indication: priapism management Priapism management: phenylephrine injection (1000mcg/2mL vial; 4 injections delivered in 5 minute intervals at 9:10, 9:15, 9:20, 9:25, for a total of 4000mcg given. ) Patient tolerated procedure: well, no complications Complications: persistent priapism (20% reduction) Consult Discharge Plan - Plan Referrals: NONE,PCP [Primary Care Provider] -
[2018-02-24] MEDS: Piperacillin/Tazobactam 3.375 GM in 0.9 % Sodium Chloride Mini Bag 100 ML IVPB SCH ×3 (08:24→23:57)
[2018-02-24] MEDS ORDERED: FLUoxetine 20 MG CAPSULE PO SCH (09:00)
[2018-02-24] MEDS ORDERED: Thiamine (B-1) 100 MG TABLET PO SCH (09:00)
[2018-02-24] MEDS ORDERED: Multivit/Ca/Min/Fe/FA 1 TAB TABLET PO SCH (09:00)
[2018-02-24] MEDS ORDERED: Folic Acid 1 MG TABLET PO SCH (09:00)
[2018-02-24] MEDS ORDERED: Furosemide 20 MG/2 ML VIAL IVP SCH ×2 (09:00)
[2018-02-24] MEDS ORDERED: Nicotine 21 MG PATCH.TD24 TD SCH (09:00)
[2018-02-24] MEDS: Chlorhexidine Rinse 15 ML MOUTHWASH MM SCH (10:19)
[2018-02-24] MEDS ORDERED: *HR* Propofol 200 MG/20 ML VIAL IVP ONE (13:56)
[2018-02-24] MEDS ORDERED: *HR* Midazolam HCl 2 MG/2 ML VIAL ONE (13:56)
[2018-02-24] MEDS ORDERED: *HR* FentaNYL (PF) 100 MCG/2 ML VIAL ONE (13:59)
[2018-02-24] MEDS ORDERED: Lidocaine -MPF 2% 2 ML VIAL ONE (14:00)
[2018-02-24] MEDS ORDERED: Ondansetron 4 MG/2 ML VIAL ONE (14:00)
[2018-02-24] MEDS ORDERED: Lidocaine/EPI 1:100k 1% 20 ML VIAL ONE (14:33)
--- NOTE | 2018-02-24 15:26 | Anesthesia Evaluation PreOp ---
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 02/10/18 [Rx] FLUoxetine HCl [PROzac] 60 mg PO DAILY 02/18/18 [History] Metoprolol [Lopressor] 12.5 mg PO BID 02/18/18 [History] hydrOXYzine pamoate [HydrOXYzine Pamoate] 50 mg PO TID PRN 02/18/18 [History] Allergy/AdvReac Type Severity Reaction Status Date / Time No Known Allergies Allergy Verified 03/07/17 17:38 - Meds/Allergy Pre-op Review Medications Reviewed: Yes Allergies Reviewed: Yes Beta Blockers on Current Med List: Yes If Beta Blockers taken, Date/Time (Last Dose taken): 02-24-18 metoprolol at 11:19 Anesthesia Results - Labs 02/24/18 03:15 02/24/18 03:15 - Imaging EKG: report reviewed, image reviewed (SINUS TACHYCARDIA NONSPECIFIC ST & T-WAVE ABNORMALITY) Anesthesia Exam Last Vital Signs Temp 98.2 F 02/24/18 12:00 Pulse 80 02/24/18 15:00 Resp 16 02/24/18 15:00 BP 121/80 02/24/18 15:00 Pulse Ox 98 02/24/18 15:00 Weight: 85 kg NPO (# of Hours): > 8 hrs - HEENT Pupil (Motor): Pupils equal, EOMI Mallampati: III Teeth: Normal (chipped front tooth) Oral Opening: Greater than 3 - CABLE WIRER LOC: Oriented - Cardiac Rhythm: Regular Murmur: None - Pulmonary Breath Sounds: bilateral Clear Respiratory Effort: Symmetrical Anesthesia Assess/Plan ASA Score: 2, E Level of consciousness: Cooperative Anesthetic Plan: General Monitoring Plan: Standard Monitors Recovery Plan: PACU
[2018-02-24] MEDS ORDERED: Acetaminophen IV 1,000 MG/100 ML INFUS..BTL ONE (15:29)
[2018-02-24] MEDS ORDERED: EPHEDrine 50 MG/ML VIAL ONE (15:52)
[2018-02-24] MEDS ORDERED: Dexamethasone 4 MG/ML VIAL ONE (16:08)
[2018-02-24] MEDS ORDERED: *HR* Promethazine 25 MG/ML VIAL IVP PRN ×3 (16:12→18:44)
[2018-02-24] MEDS ORDERED: *HR* HYDROmorphone (PF) 1 MG/ML SYRINGE IVP PRN ×2 (16:12→16:16)
[2018-02-24] MEDS ORDERED: *HR* OxyCODONE Immed Rel 5 MG TABLET PO PRN ×2 (16:12→16:16)
--- NOTE | 2018-02-24 16:50 | Operative Note ---
Date of procedure: 02/24/18 Pre-op diagnosis: priapism Post-op diagnosis: same Procedure: Corporis cavernosumcorporis spongiosum shunt Implants: none Complications: none Anesthesia: GETA Surgeon: Glen Krueger Was there an dermatology physician assistant present: No Estimated blood loss (cc): 20 Specimen: none Condition: stable Disposition: PACU Procedure in Detail: Very pleasant 37-year-old gentleman who developed priapism while in the ICU for respiratory failure. He has shortly response to aspiration/irrigation/injection and was taken to the operating theater yesterday for a corporal glandular shunt which was performed unilaterally. Unfortunately, his response to the unilateral distal shunt short-lived as well. Thus he presents again today for more aggressive approach. The patient was brought to the operating theater placed on table in supine position. Patient was identified by name and administered a general anesthetic. Digital area was prepped and draped in a normal sterile fashion. Using 15 blade scalpel to incisions were made in the glans over the tips of the corporal bodies. Then using a #4 punch biopsy device cores were taken through the tips of the corpora bilaterally. At this point the Metzenbaum scissors were run through the punch biopsy site and through the level of the penile corpora cavernosum. To 14-gauge angiocatheters were inserted into the corpora at the base of the penis and copious irrigation with injectable saline was performed. Additional blood was noted from the proximal corpora manually. The penis appeared fairly well compressed at this point. Thus attention was turned to closure. The angiocaths were removed. A penile ring block was performed with Marcaine. Penile incisions were closed with 1 [id number] [id number] chromic on each side. This ended the operative procedure.
--- NOTE | 2018-02-24 17:15 | Anesthesia Evaluation Post Op ---
Date of Encounter: 02/24/18 Time of Encounter: 17:14 - Vital Signs Vital Signs: Vital Signs/O2 Sat, Most Current Temp Pulse Resp BP Pulse Ox 99.4 F 85 16 139/87 95 02/24/18 16:57 02/24/18 16:57 02/24/18 16:57 02/24/18 16:57 02/24/18 16:57 - Lungs Lungs: Clear Ascult./Percussion - Airway Airway: Non-obstructed - Cardiovascular Regular Rate, Baseline Rhythm - Mental Status Mental Status: Alert & Oriented, Answers Appropriately - Pain Pain Scale: 0 Pain Scale used: Numeric (1 - 10) - Nausea Vomiting Nausea Vomiting: Not Present - Hydration Hydration: Ice chips - Discharge PostOp Status: Transfer Patient to floor
[2018-02-24] MEDS ORDERED: Naloxone 0.4 MG/ML INJ IVP PRN (18:44)
[2018-02-24] MEDS ORDERED: Ipratropium Neb 0.5 MG NEBULIZER IH PRN (18:44)
[2018-02-24] MEDS ORDERED: *HR* LORazepam 2 MG/ML VIAL IVP PRN ×3 (18:44)
[2018-02-24] MEDS: Acetaminophen 325 MG TABLET PO PRN (23:58)
[2018-02-25] MEDS: Levalbuterol Neb 0.63 MG/3 ML IH SCH ×4 (03:57→22:44)
[2018-02-25] MEDS: traMADol 50 MG TABLET PO PRN ×3 (04:31→20:19)
[2018-02-25 05:09] LABS: Basophils # 0.1 K/mcL (0.0-0.2); Basophils % 0.4 %; Eosinophils # 0.1 K/mcL (0.0-0.6); Eosinophils % 0.7 %; Hematocrit 33.9 % (37.5-50.1); Hemoglobin 11.2 g/dL (12.9-16.9); Immature Granulocytes % 2.2 % (0-4); Lymphocytes # 2.1 K/mcL (0.6-4.6); Lymphocytes % 15.6 %; Mean Corpuscular Hemoglobin 27.4 pg (28.0-33.3); Mean Corpuscular Volume 82.9 fL (83.0-100.0); Mean Platelet Volume 8.8 fL (9.4-12.4); Monocytes # 0.7 K/mcL (0.0-1.3); Monocytes % 4.9 %; Neutrophils # 10.4 K/mcL (1.6-8.9); Platelet Count 427 K/mcL (140-400); Red Blood Count 4.09 M/mcL (4.19-5.50); Red Cell Distribution Width 12.7 % (11.5-14.5); Segmented Neutrophils % 76.2 %
[2018-02-25 05:21] LABS: BUN/Creatinine Ratio 27 (6-26); Blood Urea Nitrogen 16 mg/dL (6-20); Calcium 8.7 mg/dL (8.6-10.3); Carbon Dioxide 28 mEq/L (23-29); Chloride 99 mEq/L (98-107); Glucose 105 mg/dL (70-105); Osmolality,Calculated 278 (280-300); Potassium 3.8 mEq/L (3.5-5.1); Sodium 133 mEq/L (136-145); eGFR For Non-African Americans > 60 (> 60)
[2018-02-25] MEDS: *HR* Heparin 5,000 UNIT/ML VIAL SQ SCH ×2 (06:25→16:54)
[2018-02-25] MEDS: Piperacillin/Tazobactam 3.375 GM in 0.9 % Sodium Chloride Mini Bag 100 ML IVPB SCH ×2 (09:42→16:52)
[2018-02-25] MEDS: FLUoxetine 20 MG CAPSULE PO SCH (09:49)
[2018-02-25] MEDS: Multivit/Ca/Min/Fe/FA 1 TAB TABLET PO SCH (09:50)
[2018-02-25] MEDS: Thiamine (B-1) 100 MG TABLET PO SCH (09:50)
[2018-02-25] MEDS: Folic Acid 1 MG TABLET PO SCH (09:50)
[2018-02-25] MEDS: Nicotine 21 MG PATCH.TD24 TD SCH (09:51)
[2018-02-25] MEDS: Acetaminophen 325 MG TABLET PO PRN (09:55)
--- NOTE | 2018-02-25 11:26 | Urology Progress Note ---
<Bryanna Rodríguez N - Last Filed: 02/25/18 11:23> Date of Encounter: 02/25/18 Time of Encounter: 10:40 - Assessment and Plan (1) Priapism Current Visit: Yes Status: Acute Assessment and plan: Patient is a 37-year-old male who presents the history of priapism of unknown etiology. Patient underwent multiple injections of phenylephrine without resolution. Patient also underwent unilateral penile shunt procedure on 04/26/2017 without resolution. On 02/24/2018, the patient underwent repeat corporis cavernosumcorporis spongiosum shunt with improvement. Urology will continue to follow. Progress Note Subjective: no new complaints Narrative: POD #1. Patient seen and examined sitting upright in bed in no apparent distress. Patient reports some discomfort but states erection is resolved. Heredia catheter is indwelling and draining clear urine into bedside bag. Objective Initial Vital Signs Temp Pulse Resp BP Pulse Ox 99.4 F 110 20 121/82 93 02/17/18 19:59 02/17/18 19:59 02/17/18 19:59 02/17/18 19:59 02/17/18 19:59 - General physical appearance Present: well developed, no distress, no pain - Respiratory Present: normal expansion, normal respiratory effort - Abdomen Present: soft, non tender - Genitourinary Present: other (penile wound clean, dry, intact ) Urine Appearance: Present: Clear - Integumentary Present: no rash, no abnormal pigmentation - Musculoskeletal Present: normal posture - Psychiatric Present: oriented to time, oriented to person, oriented to place, speech is normal, memory intact - Labs 02/25/18 04:53 02/25/18 04:53 Diabetes panel 02/25/18 Range/Units 04:53 Sodium 133 L (136-145) mEq/L Potassium 3.8 (3.5-5.1) mEq/L Chloride 99 (98-107) mEq/L Carbon Dioxide 28 (23-29) mEq/L BUN 16 (6-20) mg/dL Creatinine 0.60 L (0.70-1.30) mg/dL Glucose 105 (70-105) mg/dL Calcium 8.7 (8.6-10.3) mg/dL Calcium panel 02/25/18 Range/Units 04:53 Calcium 8.7 (8.6-10.3) mg/dL Pituitary panel 02/25/18 Range/Units 04:53 Sodium 133 L (136-145) mEq/L Potassium 3.8 (3.5-5.1) mEq/L Chloride 99 (98-107) mEq/L Carbon Dioxide 28 (23-29) mEq/L BUN 16 (6-20) mg/dL Creatinine 0.60 L (0.70-1.30) mg/dL Glucose 105 (70-105) mg/dL Calcium 8.7 (8.6-10.3) mg/dL Adrenal panel 02/25/18 Range/Units 04:53 Sodium 133 L (136-145) mEq/L Potassium 3.8 (3.5-5.1) mEq/L Chloride 99 (98-107) mEq/L Carbon Dioxide 28 (23-29) mEq/L BUN 16 (6-20) mg/dL Creatinine 0.60 L (0.70-1.30) mg/dL Glucose 105 (70-105) mg/dL Calcium 8.7 (8.6-10.3) mg/dL Consult Discharge Plan - Plan Referrals: NONE,PCP [Primary Care Provider] - <Glen Krueger - Last Filed: 02/25/18 22:19> Date of Encounter: 02/25/18 - Assessment and Plan (1) Priapism Current Visit: Yes Status: Acute Assessment and plan: Patient seen and examined independently. Erection is down on exam today. Agree with findings, assessment and plan by Anne MCKEON. Recommend outpatient follow- up with me in 2-4 weeks. Objective Initial Vital Signs Temp Pulse Resp BP Pulse Ox 99.4 F 110 20 121/82 93 02/17/18 19:59 02/17/18 19:59 02/17/18 19:59 02/17/18 19:59 02/17/18 19:59 - Labs 02/25/18 04:53 02/25/18 04:53 Diabetes panel 02/25/18 Range/Units 04:53 Sodium 133 L (136-145) mEq/L Potassium 3.8 (3.5-5.1) mEq/L Chloride 99 (98-107) mEq/L Carbon Dioxide 28 (23-29) mEq/L BUN 16 (6-20) mg/dL Creatinine 0.60 L (0.70-1.30) mg/dL Glucose 105 (70-105) mg/dL Calcium 8.7 (8.6-10.3) mg/dL Calcium panel 02/25/18 Range/Units 04:53 Calcium 8.7 (8.6-10.3) mg/dL Pituitary panel 02/25/18 Range/Units 04:53 Sodium 133 L (136-145) mEq/L Potassium 3.8 (3.5-5.1) mEq/L Chloride 99 (98-107) mEq/L Carbon Dioxide 28 (23-29) mEq/L BUN 16 (6-20) mg/dL Creatinine 0.60 L (0.70-1.30) mg/dL Glucose 105 (70-105) mg/dL Calcium 8.7 (8.6-10.3) mg/dL Adrenal panel 02/25/18 Range/Units 04:53 Sodium 133 L (136-145) mEq/L Potassium 3.8 (3.5-5.1) mEq/L Chloride 99 (98-107) mEq/L Carbon Dioxide 28 (23-29) mEq/L BUN 16 (6-20) mg/dL Creatinine 0.60 L (0.70-1.30) mg/dL Glucose 105 (70-105) mg/dL Calcium 8.7 (8.6-10.3) mg/dL
--- NOTE | 2018-02-25 13:19 | Internal Med Progress Note ---
Hospitalist Progress Note - Encounter Date of Encounter: 02/25/18 Time of Encounter: 13:16 - Subjective Interval History: Patient was transferred back from ICU to floor yesterday. Patient lying comfortably on bed. Has some discomfort in the penis but erection is resolved. For the catheter in place. Reviewed the lab and consulted. Patient on oxygen b y nasal cannula. Complained of productive thick cough not easy to spit out but denies fever chills nausea vomiting headache dizziness chest pain shortness of breath abdominal pain diarrhea. - Exam Vitals: Temp Pulse Resp BP Pulse Ox 98.3 F 76 16 139/92 97 02/25/18 11:43 02/25/18 11:43 02/25/18 11:43 02/25/18 11:43 02/25/18 11:43 Exam: Gen: Alert, awake, Oriented to time,place and person Chest: Diminished breath sounds B/L, no crepitation. Heart: Regular rate and rhythm with no murmur. Abd: Soft, NT, BS +, No organomegaly Ext: No edema, pulses are palpable, No calf tenderness Neuro : No focal neurological deficit. Motor 5 x 5 in all 4 extremities. Cranial nerves II-12 intact. Skin: No rash. - Assessment and Plan (1) Acute respiratory failure with hypoxia Current Visit: Yes Status: Acute Assessment and Plan: Due to pneumonia and ARDS. Patient was transferred to ICU and got intubated eventually he improved and extubated transferred back to floor. Repeat chest x-ray with improvement in ARDS. Initial IV Lasix was given but his start IV Lasix on 02 24 2018. Currently on 3 L oxygen by nasal cannula-continue to wean down. Incentive spirometry with respiratory consult for chest percussion as needed Plan to discharge patient 1-2 days if continued to improve (2) Healthcare-associated pneumonia Current Visit: Yes Status: Acute Assessment and Plan: Patient presented with cough, concern for HAP with recent Hospitalization. Chest x-ray bilateral lower lobe pneumonia. And also concern for aspiration pneumonia as history of alcohol dependence. Status post extubation Respiratory panel was negative. Legionella and Strep pneumoniae are negative. Blood culture drawn 02/17 x2 sets are NGTD. CXR 02/17 showed bilateral ground glass opacities. CTA chest shows diffuse alveolar damage, multifocal dense consolidations. Could represent acute interstitial pneumonia vs ARDS. CXR 02/22 shows ARDS that is improved. Patient continued vancomycin and Zosyn for 5 days but now vancomycin stopped on 02 24 2018 before getting transfer from ICU. (3) HTN (hypertension) Current Visit: No Status: Chronic Assessment and Plan: Well controlled. Continue to monitor.continue lisinopril, beta sarah (4) SIRS (systemic inflammatory response syndrome) Current Visit: Yes Status: Acute Assessment and Plan: On admission patient met SIRS criteria with elevated white count, mildly tach ycardia. source of infection as pneumonia blood cultures no growth so far (5) Tobacco dependence Current Visit: Yes Status: Chronic Assessment and Plan: Counseled to quit smoking placed on nicotine patch (6) Alcohol withdrawal Current Visit: Yes Status: Acute Assessment and Plan: History of heavy alcohol use 1-2 cases of beer daily. Patient is on COPD protocol with when necessary Ativan. Continue thiamine folate and multivitamins. (7) Priapism Current Visit: Yes Status: Acute Assessment and Plan: Improving. Patient underwent multiple injections of phenylephrine without resolution. Patient also underwent unilateral penile shunt procedure on 02/23/2018 without resolution. On 02/24/2018, the patient underwent repeat corporis cavernosumcorporis spongiosum shunt with improvement. Urologist on board and fully catheter in place. (8) Anxiety Current Visit: No Status: Chronic Assessment and Plan: Stable. Continue home dose Prozac (9) DVT prophylaxis Current Visit: No Status: Acute Assessment and Plan: Heparin subcutaneous - Time Spent with Patient Total time spent is greater than 50% in coordination of care (as documented) at patient's floor/unit and/or counseling patient: 25 - 35 minutes Plan of Care Discussed with: patient Internal Medicine: Result - Labs CBC & Chem 7: 02/25/18 04:53 02/25/18 04:53 Labs: Short CBC 02/25/18 Range/Units 04:53 WBC 13.6 H (4.3-11.1) K/mcL Hgb 11.2 L (12.9-16.9) g/dL Hct 33.9 L (37.5-50.1) % Plt Count 427 H (140-400) K/mcL Neutrophils # 10.4 H (1.6-8.9) K/mcL BMP 02/25/18 04:53 Sodium 133 L Potassium 3.8 Chloride 99 Carbon Dioxide 28 BUN 16 Creatinine 0.60 L Glucose 105 Calcium 8.7 - ABG Interpretation ABG results: ABG ABG pH 7.41 pH Units (7.32-7.45) 02/23/18 04:24 ABG pCO2 63 mmHg (35-45) H 02/23/18 04:24 ABG pO2 65 mmHg (85-104) L 02/23/18 04:24 ABG O2 Saturation 92 % (95-98) L 02/23/18 04:24 Consult Discharge Plan - Plan Referrals: NONE,PCP [Primary Care Provider] - (3) HTN (hypertension) Qualifiers: Hypertension type: essential hypertension Qualified Code(s): I10 - Essential (primary) hypertension (6) Alcohol withdrawal Qualifiers: Complication of substance-induced condition: with perceptual disturbance Qualified Code(s): F10.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
[2018-02-26] MEDS: Piperacillin/Tazobactam 3.375 GM in 0.9 % Sodium Chloride Mini Bag 100 ML IVPB SCH ×2 (00:40→08:02)
[2018-02-26] MEDS: traMADol 50 MG TABLET PO PRN (04:02)
[2018-02-26] MEDS: Levalbuterol Neb 0.63 MG/3 ML IH SCH ×3 (04:24→16:00)
[2018-02-26 04:35] LABS: Basophils # 0.1 K/mcL (0.0-0.2); Basophils % 0.6 %; Eosinophils # 0.2 K/mcL (0.0-0.6); Eosinophils % 2.1 %; Hematocrit 34.2 % (37.5-50.1); Hemoglobin 11.2 g/dL (12.9-16.9); Immature Granulocytes % 3.6 % (0-4); Lymphocytes # 2.2 K/mcL (0.6-4.6); Lymphocytes % 19.7 %; Mean Corpuscular HGB Conc 32.7 g/dL (31.6-35.5); Mean Corpuscular Hemoglobin 27.3 pg (28.0-33.3); Mean Corpuscular Volume 83.4 fL (83.0-100.0); Mean Platelet Volume 8.9 fL (9.4-12.4); Monocytes # 0.6 K/mcL (0.0-1.3); Monocytes % 5.5 %; Neutrophils # 7.7 K/mcL (1.6-8.9); Platelet Count 430 K/mcL (140-400); Segmented Neutrophils % 68.5 %
[2018-02-26 04:54] LABS: BUN/Creatinine Ratio 17 (6-26); Blood Urea Nitrogen 11 mg/dL (6-20); Calcium 8.5 mg/dL (8.6-10.3); Carbon Dioxide 26 mEq/L (23-29); Chloride 104 mEq/L (98-107); Glucose 109 mg/dL (70-105); Osmolality,Calculated 284 (280-300); Potassium 3.6 mEq/L (3.5-5.1); Sodium 137 mEq/L (136-145); eGFR For Non-African Americans > 60 (> 60)
[2018-02-26] MEDS: *HR* Heparin 5,000 UNIT/ML VIAL SQ SCH (05:49)
[2018-02-26 06:56] VITALS: BP 140/90
[2018-02-26] MEDS: Multivit/Ca/Min/Fe/FA 1 TAB TABLET PO SCH (08:03)
[2018-02-26] MEDS: Nicotine 21 MG PATCH.TD24 TD SCH (08:03)
[2018-02-26] MEDS: FLUoxetine 20 MG CAPSULE PO SCH (08:04)
[2018-02-26] MEDS: Thiamine (B-1) 100 MG TABLET PO SCH (08:04)
--- NOTE | 2018-02-26 08:11 | Urology Progress Note ---
Date of Encounter: 02/26/18 Time of Encounter: 07:50 - Assessment and Plan (1) Priapism Current Visit: Yes Status: Acute Assessment and plan: Patient is a 37-year-old male who is 2 days postoperative from Corporis cavernosumcorporis spongiosum shunt. Erection is resolved. Urology will sign off and plan follow-up within 2 weeks of discharge as discussed with patient. Progress Note Subjective: no new complaints, feels better Narrative: POD #2. Patient seen and examined lying in bed in no apparent distress. Nurse at bedside. Erection is resolved. Heredia catheter is indwelling draining clear urine into bedside bag. Patient has no new urologic concerns at this time. Objective Initial Vital Signs Temp Pulse Resp BP Pulse Ox 99.4 F 110 20 121/82 93 02/17/18 19:59 02/17/18 19:59 02/17/18 19:59 02/17/18 19:59 02/17/18 19:59 - General physical appearance Present: well developed, no distress, no pain - Respiratory Present: normal expansion, normal respiratory effort ( ) - Abdomen Present: soft, non tender - Genitourinary Present: normal penis with no external lesions Urine Appearance: Present: Clear - Integumentary Present: no rash, no abnormal pigmentation - Musculoskeletal Present: normal posture - Psychiatric Present: oriented to time, oriented to person, oriented to place, speech is normal, memory intact - Labs 02/26/18 04:07 02/26/18 04:07 Diabetes panel 02/26/18 Range/Units 04:07 Sodium 137 (136-145) mEq/L Potassium 3.6 (3.5-5.1) mEq/L Chloride 104 (98-107) mEq/L Carbon Dioxide 26 (23-29) mEq/L BUN 11 (6-20) mg/dL Creatinine 0.66 L (0.70-1.30) mg/dL Glucose 109 H (70-105) mg/dL Calcium 8.5 L (8.6-10.3) mg/dL Calcium panel 02/26/18 Range/Units 04:07 Calcium 8.5 L (8.6-10.3) mg/dL Pituitary panel 02/26/18 Range/Units 04:07 Sodium 137 (136-145) mEq/L Potassium 3.6 (3.5-5.1) mEq/L Chloride 104 (98-107) mEq/L Carbon Dioxide 26 (23-29) mEq/L BUN 11 (6-20) mg/dL Creatinine 0.66 L (0.70-1.30) mg/dL Glucose 109 H (70-105) mg/dL Calcium 8.5 L (8.6-10.3) mg/dL Adrenal panel 02/26/18 Range/Units 04:07 Sodium 137 (136-145) mEq/L Potassium 3.6 (3.5-5.1) mEq/L Chloride 104 (98-107) mEq/L Carbon Dioxide 26 (23-29) mEq/L BUN 11 (6-20) mg/dL Creatinine 0.66 L (0.70-1.30) mg/dL Glucose 109 H (70-105) mg/dL Calcium 8.5 L (8.6-10.3) mg/dL Consult Discharge Plan - Plan Referrals: NONE,PCP [Primary Care Provider] -
[2018-02-26] MEDS: Folic Acid 1 MG TABLET PO SCH (10:24)
[2018-02-26] MEDS: Acetaminophen 325 MG TABLET PO PRN (11:44)
--- NOTE | 2018-02-26 12:35 | Discharge Summary ---
- NOTES TO OUTPATIENT PROVIDER Notes to Outpatient Provider: PCP in 5 to 7 days Orders not resulted at time of discharge: Pending orders 02/25/18 07:50 Bedside Spirometry Evaluation [EVAL] Routine Date of Encounter: 02/26/18 Time of Encounter: 12:12 - Discharge Diagnosis (1) Acute respiratory failure with hypoxia Priority: Primary Status: Acute Assessment and Plan: Due to pneumonia and ARDS. Patient was transferred to ICU and got intubated eventually he improved and extubated transferred back to floor. Repeat chest x-ray with improvement in ARDS. Initial IV Lasix was given but that has been discontinued. Was on 3 L oxygen by nasal cannula which was weaned down and he is tolerating room air. Incentive spirometry with respiratory consult for chest percussion as needed. (2) SIRS (systemic inflammatory response syndrome) Priority: Primary Status: Acute Assessment and Plan: On admission patient met SIRS criteria with elevated white count, mildly tachycardia. SIRs likely due to ARDs and pneumonia blood cultures no growth to date. Competed course of antibiotic and Zosyn. (3) Healthcare-associated pneumonia Priority: Primary Status: Acute Assessment and Plan: Patient presented with cough, concern for HAP with recent Hospitalization. Chest x-ray bilateral lower lobe pneumonia. And also concern for aspiration pneumonia as a result of history of alcohol dependence. He was eventually transferred to ICU for close monitoring due to progression to ARDs Status post extubation Respiratory panel was negative. Legionella and Strep pneumoniae are negative. Blood culture drawn 02/17 x2 sets are NGTD. CXR 02/17 showed bilateral ground glass opacities. CTA chest shows diffuse alveolar damage, multifocal dense consolidations. Could represent acute interstitial pneumonia vs ARDS. CXR 02/22 shows ARDS that is improved. Patient on vancomycin and Zosyn for 5 days, and course completed. (4) Alcohol withdrawal Priority: Primary Status: Acute Assessment and Plan: History of heavy alcohol use 1-2 cases of beer daily. Patient was on CIWA protocol with prn Ativan. Was on thiamine, folate, and multivitamins. Qualifiers: Complication of substance-induced condition: with perceptual disturbance Qualified Code(s): F10.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 (5) HTN (hypertension) Priority: Secondary Status: Chronic Assessment and Plan: Well controlled. Continue to monitor.continue lisinopril, beta sarah Qualifiers: Hypertension type: essential hypertension Qualified Code(s): I10 - Essential (primary) hypertension (6) Anxiety Priority: Secondary Status: Chronic Assessment and Plan: Stable. Continue home dose Prozac. Pt is strongly advised not to take ETOH with any of is home medications including prozac as it is metabolized by Liver. EOTH interferes with metabolism of certain drugs and probably why he developed priapism which is one of the listed sever side effects of Prozac. (7) Tobacco dependence Priority: Secondary Status: Chronic Assessment and Plan: Counseled to quit smoking placed on nicotine patch (8) Priapism Priority: Primary Status: Acute Assessment and Plan: Improving. Patient underwent multiple injections of phenylephrine without resolution. Patient also underwent unilateral penile shunt procedure on 02/23/2018 without resolution. On 02/24/2018, the patient underwent repeat corporis cavernosumcorporis spongiosum shunt with improvement. Urologist on board and vaughn catheter was ordered. Urology states to DC vaughn ad remove penile dressing. Also states pt should follow up out pt. Hospital course: History of present illness: Dr. Nesbitt Mr. Vera is a 37 year old male with hx of ETOH dependence who presented with " flu like symptoms." Pt states he developed flulike symptoms that began 3 days ago. He has had increased shortness of breath as well over the last 24 hours. He says he has a history of having pneumonia and bronchitis in the past. No previous hospitalization for these. He has had increased cough with production of clear sputum with occasional yellow and green sputum. He denies fevers at home as well as sick contacts. He was recently admitted to the hospital about 1 week ago for alcohol intoxication and withdrawal. In the emergency room patient's CBC and CMP were within normal limits. Chest x- ray showed bilateral pneumonia. He was noted to have wheeze on lung exam he was given steroids and breathing treatments. Blood cultures were drawn and he was started on vancomycin and Zosyn due to his recent hospitalization. Upon my evaluation patient states that he is feeling better and breathing easier. He denies nausea and vomiting though sometimes he does have dry heaves after coughing. He denies chest pain, abdominal pain, diarrhea and constipation. He says his last drink of alcohol was about [address] Rodrigez See A/P for hospital course. Discharge discussed with: patient - Time Spent with Patient Total time spent providing and/or coordinating discharge services: Greater than 30 minutes - Discharge Medications Home Medications: Lisinopril [Zestril] 10 mg PO DAILY 09/29/17 [History] Aspirin Enteric Coated [Aspirin EC] 81 mg PO DAILY #30 tablet. 02/10/18 [Rx] FLUoxetine HCl [PROzac] 60 mg PO DAILY 02/18/18 [History] Metoprolol [Lopressor] 12.5 mg PO BID 02/18/18 [History] hydrOXYzine pamoate [HydrOXYzine Pamoate] 50 mg PO TID PRN 02/18/18 [History] Allergies/Adverse Reactions: Allergy/AdvReac Type Severity Reaction Status Date / Time No Known Allergies Allergy Verified 03/07/17 17:38 Date of admission: 02/18/18 17:49 Primary care physician: PCP NONE Consults: 02/20/18 05:08 Consult to Pulmonology [CONS] Routine Consulting Provider: [facility] [place] Reason for Consult: Critical care management, intubated/concern for ARDS Call Completed: No 02/20/18 10:00 Consult to Nutrition [CONS] Routine Comment: Consulting Provider: NUTRITION Reason for Dietary Consult: Tube Feed Start & Manage 02/22/18 08:28 Consult to Urology [CONS] Routine Consulting Provider: Urology [place] Reason for Consult: priapism Call Completed: Yes 02/25/18 08:52 Consult to Side Stapler [CONS] Routine Reason for SW Consult: Resource for AA patient is very weak great candiate for Rehab. 02/25/18 08:53 Consult to Physical Therapy [CONS] Routine Comment: Evaluate, develop and implement POC Reason for Consult: patient is very weak, worried about him returning home Indenpendtly . patient is alcoholic admitts to drinking 1-2 cases of beer daily. Does patient have active BEDREST order?: No Is patient medically & hemodynamically stable?: Yes Patient assessed for mobility or mobilized this visit?: No 02/25/18 08:55 Consult to Occupational Therapy [CONS] Routine Comment: Evaluate, develop and implement POC Reason for Consult: patient is very weak and unsteady gait. Concerns for him returning home indenpendtly . he is an alcoholic and admits to drinking 1-2 case a day. Could be a great candiadate for rehab Does patient have active BEDREST order?: No Is patient medically & hemodynamically stable?: Yes Patient assessed for mobility or mobilized this visit?: No Discharging clinician: Vibha Rodrigez Anticipated date of discharge: 02/26/18 - Constitutional Vitals: Temp Pulse Resp BP Pulse Ox 98.2 F 72 18 140/90 97 02/26/18 06:50 02/26/18 06:50 02/26/18 10:58 02/26/18 06:50 02/26/18 10:58 General appearance: Present: cooperative, A&O X 3, pleasant, no acute distress, answers questions appropriately Exam: . - Head Head exam: Present: atraumatic, normocephalic - Eye Eye exam: Present: PERRL, conjuntiva pink, sclera anicteric Pupils: Present: PERRL - Neck Neck exam general surgery: Present: supple, trachea midline. Absent: lymphadenopathy - Respiratory Respiratory exam: Present: CTAB. Absent: accessory muscle use, rales, rhonchi, wheezes - Cardiovascular Cardiovascular exam: Present: RRR, +S1, +S2. Absent: diastolic murmur, gallop, rubs, systolic murmur - GI/Abdominal GI/Abdominal exam: Present: normal bowel sounds, soft, no peritoneal signs. Absent: distended, tenderness - Extremities Exam Extremities exam: Present: warm, radial pulses palpable and symmetrical. Absent: calf tenderness, cyanotic, pedal edema - Neurological Exam Neurological exam: Present: CN II-XII intact, oriented X3, no focal deficits. Absent: pronater drift, facial droop, speech deficit - Skin Skin exam: Present: dry, intact - Patient Status Disposition: Home, Self-Care Condition: Good Overall status at discharge: patient is back to baseline - Discharge Instructions Follow Up With: Farhad Rodriguez DO [Resident] - - Diet and Activity Activity: increase activity as tolerated Diet: advance to your usual diet
== END 2018-02-26 16:23 | disposition home or self-care (01) | DRG 987 ==
LOC: 3BNU 19:53 → EMEROOARM 19:53 → SUATTDRO 23:06 → 3BNU 23:58 → SUATTDRO 02-18 17:49 → 2NENU 02-19 16:40 → ICNU 02-20 03:55 → 2NENU 02-24 17:28
PROVIDERS: ADMIT Family Medicine; ATTEND Internal Medicine Pulmonary Disease

== ENCOUNTER 2019-01-08 23:52 | Observation (INO) ==
[2019-01-09 00:50] LABS: Bilirubin,Urine Negative (Negative); Blood,Urine Negative (Negative); Clarity,Urine Clear (Clear); Color,Urine Yellow (Yellow); Glucose,Urine (UA) Normal (Normal); Ketones,Urine Negative (Negative); Leukocyte Esterase,Urine Negative (Negative); Nitrite,Urine Negative (Negative); PH,Urine 6.5 pH Units (5.0-8.0); Protein,Urine Negative (Neg-Trace); Specific Gravity,Urine < 1.005 (1.010-1.025); Urobilinogen,Urine Normal (Normal)
[2019-01-09 00:59] LABS: Amphetamine Screen,Urine Negative ng/mL (Cutoff=1000); Barbiturate Screen,Urine Negative ng/mL (Cutoff=200); Benzodiazepines Screen,Urine Negative ng/mL (Cutoff=200); Cannabinoid Screen,Urine Negative ng/mL (Cutoff = 50); Cocaine Screen,Urine Negative ng/mL (Cutoff= 300); Opiate Screen,Urine Negative ng/mL (Cutoff=300); Phencyclidine Screen,Urine Negative ng/mL (Cutoff=25)
[2019-01-09 01:04] LABS: Basophils % 0.6 %; Eosinophils # 0.1 K/mcL (0.0-0.6); Eosinophils % 1.9 %; Hematocrit 42.2 % (37.5-50.1); Hemoglobin 14.7 g/dL (12.9-16.9); Immature Granulocytes % 0.4 % (0-4); Lymphocytes # 2.5 K/mcL (0.6-4.6); Lymphocytes % 37.4 %; Mean Corpuscular HGB Conc 34.8 g/dL (31.6-35.5); Mean Corpuscular Hemoglobin 30.4 pg (28.0-33.3); Mean Corpuscular Volume 87.2 fL (83.0-100.0); Mean Platelet Volume 8.6 fL (9.4-12.4); Monocytes # 0.4 K/mcL (0.0-1.3); Monocytes % 5.7 %; Neutrophils # 3.6 K/mcL (1.6-8.9); Platelet Count 286 K/mcL (140-400); Red Blood Count 4.84 M/mcL (4.19-5.50); Red Cell Distribution Width 13.1 % (11.5-14.5); White Blood Count 6.7 K/mcL (4.3-11.1)
[2019-01-09 01:22] LABS: Acetaminophen < 10 mcg/mL (10-20); BUN/Creatinine Ratio 6 (6-26); Blood Urea Nitrogen 4 mg/dL (6-20); Calcium 9.3 mg/dL (8.6-10.3); Carbon Dioxide 21 mEq/L (23-29); Chloride 107 mEq/L (98-107); Ethanol 301 mg/dL (Less than 10); Glucose 121 mg/dL (70-105); Osmolality,Calculated 288 (280-300); Potassium 3.5 mEq/L (3.5-5.1); Salicylate < 2.5 mg/dL (15.0-30.0); Sodium 140 mEq/L (136-145); eGFR For African Americans > 60 (> 60); eGFR For Non-African Americans > 60 (> 60)
[2019-01-09] MEDS ORDERED: 0.9 % Sodium Chloride 1,000 ML IVC SCH (02:00)
[2019-01-09] MEDS ORDERED: Naloxone 0.4 MG/ML INJ IVP PRN (02:00)
[2019-01-09] MEDS ORDERED: *HR* LORazepam 2 MG/ML VIAL IVP PRN ×3 (02:00)
[2019-01-09] MEDS: *HR* Heparin 5,000 UNIT/ML VIAL SQ SCH ×2 (05:24→16:14)
[2019-01-09 05:30] LABS: VBG HCO3 23 mEq/L (21-27); VBG PCO2 42 mmHg (41-51); VBG PH 7.35 pH Units (7.32-7.42); VBG PO2 174 mmHg (25-50)
[2019-01-09 05:32] LABS: Basophils % 0.6 %; Eosinophils # 0.2 K/mcL (0.0-0.6); Eosinophils % 2.3 %; Hematocrit 42.7 % (37.5-50.1); Hemoglobin 14.1 g/dL (12.9-16.9); Immature Granulocytes % 0.3 % (0-4); Lymphocytes # 3.4 K/mcL (0.6-4.6); Lymphocytes % 52.9 %; Mean Corpuscular Hemoglobin 29.6 pg (28.0-33.3); Mean Corpuscular Volume 89.7 fL (83.0-100.0); Mean Platelet Volume 8.4 fL (9.4-12.4); Monocytes # 0.4 K/mcL (0.0-1.3); Monocytes % 5.9 %; Neutrophils # 2.4 K/mcL (1.6-8.9); Platelet Count 273 K/mcL (140-400); Red Blood Count 4.76 M/mcL (4.19-5.50); Red Cell Distribution Width 13.2 % (11.5-14.5); White Blood Count 6.4 K/mcL (4.3-11.1)
[2019-01-09 05:41] LABS: INR 1.1; Prothrombin Time 12.1 Seconds (9.4-12.1)
[2019-01-09 05:50] LABS: Alanine Aminotransferase 33 Units/L (7-52); Albumin 4.4 g/dL (3.5-5.7); Albumin/Globulin Ratio 1.5 (1.1-2.2); Alkaline Phosphatase 54 Units/L (34-104); Aspartate Amino Transferase 24 Units/L (13-39); BUN/Creatinine Ratio 7 (6-26); Bilirubin,Total 0.3 mg/dL (0.3-1.0); Blood Urea Nitrogen 5 mg/dL (6-20); Calcium 8.9 mg/dL (8.6-10.3); Carbon Dioxide 21 mEq/L (23-29); Chloride 108 mEq/L (98-107); Glucose 103 mg/dL (70-105); Magnesium 2.2 mg/dL (1.6-2.6); Osmolality,Calculated 288 (280-300); Phosphorous 4.4 mg/dL (2.7-4.5); Potassium 3.8 mEq/L (3.5-5.1); Sodium 140 mEq/L (136-145); Total Protein 7.4 g/dL (6.4-8.9); eGFR For African Americans > 60 (> 60); eGFR For Non-African Americans > 60 (> 60)
[2019-01-09] MEDS ORDERED: Nicotine 14 MG PATCH.TD24 TD SCH (09:00)
[2019-01-09 15:10] VITALS: BP 138/88
[2019-01-09] MEDS ORDERED: Thiamine (B-1) 100 MG, Folic Acid 1 MG, MVI, adult with vitamin K 10 ML in 0.9 % Sodi... IVPB SCH (18:00)
[2019-01-12] MEDS ORDERED: Thiamine (B-1) 100 MG TABLET PO SCH (09:00)
[2019-01-12] MEDS ORDERED: Folic Acid 1 MG TABLET PO SCH (09:00)
[2019-01-12] MEDS ORDERED: Vitamin B Complex/Vit C/Vit E 1 EACH TABLET PO SCH (09:00)
== END 2019-01-09 16:42 | disposition home or self-care (01) ==
LOC: 3BNU 23:52 → EMEROOARM 23:52 → 3BNU 01-09 02:06
PROVIDERS: ADMIT Family Medicine; ATTEND Family Medicine

== ENCOUNTER 2020-07-26 14:20 | Observation (INO) ==
[2020-07-26 15:13] LABS: Bilirubin,Urine Negative (Negative); Blood,Urine Negative (Negative); Clarity,Urine Clear (Clear); Color,Urine Colorless (Yellow); Glucose,Urine (UA) Normal (Normal); Ketones,Urine Negative (Negative); Leukocyte Esterase,Urine Negative (Negative); Nitrite,Urine Negative (Negative); PH,Urine 6.5 pH Units (5.0-8.0); Protein,Urine Negative (Neg-Trace); Specific Gravity,Urine < 1.005 (1.010-1.025); Urobilinogen,Urine Normal (Normal)
[2020-07-26 15:14] LABS: Basophils # 0.1 K/mcL (0.0-0.2); Basophils % 0.7 %; Eosinophils % 0.1 %; Hematocrit 49.4 % (37.5-50.1); Hemoglobin 17.4 g/dL (12.9-16.9); Immature Granulocytes % 0.2 % (0-4); Lymphocytes % 33.8 %; Mean Corpuscular HGB Conc 35.2 g/dL (31.6-35.5); Mean Corpuscular Hemoglobin 30.5 pg (28.0-33.3); Mean Corpuscular Volume 86.5 fL (83.0-100.0); Mean Platelet Volume 8.1 fL (9.4-12.4); Monocytes # 0.8 K/mcL (0.0-1.3); Monocytes % 8.7 %; Neutrophils # 4.9 K/mcL (1.6-8.9); Platelet Count 265 K/mcL (140-400); Red Blood Count 5.71 M/mcL (4.19-5.50); Red Cell Distribution Width 12.1 % (11.5-14.5); Segmented Neutrophils % 56.5 %; White Blood Count 8.8 K/mcL (4.3-11.1)
[2020-07-26 15:24] LABS: Amphetamine Screen,Urine Negative ng/mL (Cutoff=1000); Barbiturate Screen,Urine Negative ng/mL (Cutoff=200); Benzodiazepines Screen,Urine Negative ng/mL (Cutoff=200); Cannabinoid Screen,Urine Negative ng/mL (Cutoff = 50); Cocaine Screen,Urine Negative ng/mL (Cutoff= 300); Opiate Screen,Urine Negative ng/mL (Cutoff=300); Phencyclidine Screen,Urine Negative ng/mL (Cutoff=25)
[2020-07-26 15:38] LABS: Acetaminophen < 10 mcg/mL (10-20); BUN/Creatinine Ratio 9 (6-26); Blood Urea Nitrogen 6 mg/dL (6-20); Calcium 9.2 mg/dL (8.6-10.3); Carbon Dioxide 26 mEq/L (23-29); Chloride 94 mEq/L (98-107); Ethanol 364 mg/dL (Less than 10); Glucose 132 mg/dL (70-105); Osmolality,Calculated 271 (280-300); Potassium 3.4 mEq/L (3.5-5.1); Salicylate < 2.5 mg/dL (15.0-30.0); Sodium 131 mEq/L (136-145); Troponin I < 0.03 ng/mL (< 0.04); eGFR For African Americans > 60 (> 60); eGFR For Non-African Americans > 60 (> 60)
[2020-07-26] MEDS ORDERED: Ondansetron 4 MG/2 ML VIAL IVP PRN (16:57)
[2020-07-26] MEDS ORDERED: Naloxone 0.4 MG/ML INJ IVP PRN (16:57)
[2020-07-26] MEDS ORDERED: *HR* LORazepam 2 MG/ML VIAL IVP PRN (17:02)
[2020-07-26] MEDS ORDERED: Thiamine (B-1) 100 MG in 0.9 % Sodium Chloride 50 ML IVPB SCH (17:15)
[2020-07-26] MEDS ORDERED: Folic Acid 1 MG in 0.9 % Sodium Chloride 50 ML IVPB SCH (17:15)
[2020-07-26] MEDS ORDERED: *HR* Dextrose 50 % in Water (Vial) 50 ML VIAL IVP PRN (17:26)
[2020-07-26] MEDS ORDERED: Dextrose Gel 15 GM/37.5 ML TUBE PO PRN ×2 (17:26)
[2020-07-26] MEDS ORDERED: D5% in Water 1,000 ML IVC PRN (17:26)
[2020-07-26] MEDS ORDERED: Nicotine 14 MG PATCH.TD24 TD PRN (17:27)
[2020-07-26] MEDS: Thiamine (B-1) 100 MG, Folic Acid 1 MG, MVI, adult with vitamin K 10 ML in 0.9 % Sodi... IVPB SCH (17:59)
[2020-07-26 18:27] LABS: INR 0.9; Prothrombin Time 10.9 Seconds (9.4-12.1)
[2020-07-26 19:02] LABS: Folate 5.8 ng/mL (3.0-16.0)
[2020-07-26 19:15] LABS: Estimated Average Glucose 126 mg/dl
[2020-07-26 19:22] LABS: Lipase 76 Units/L (11-82); Magnesium 2.3 mg/dL (1.6-2.6)
[2020-07-26] MEDS: *HR* LORazepam 2 MG/ML VIAL IVP PRN (19:44)
[2020-07-26] MEDS: *HR* Heparin 5,000 UNIT/ML VIAL SQ SCH (19:45)
[2020-07-26] MEDS: Insulin LISPRO 300 UNITS/3 ML VIAL SUBQ SCH (21:50)
[2020-07-26] MEDS: Ipratropium/Albuterol Neb 3 ML IH SCH (22:53)
[2020-07-27] MEDS: *HR* LORazepam 2 MG/ML VIAL IVP PRN ×5 (00:41→20:04)
[2020-07-27] MEDS: Insulin LISPRO 300 UNITS/3 ML VIAL SUBQ SCH ×4 (00:42→17:22)
[2020-07-27] MEDS: Ipratropium/Albuterol Neb 3 ML IH SCH ×4 (04:03→21:27)
[2020-07-27] MEDS: *HR* Heparin 5,000 UNIT/ML VIAL SQ SCH (05:10)
[2020-07-27 05:30] LABS: Basophils % 0.7 %; Eosinophils # 0.1 K/mcL (0.0-0.6); Eosinophils % 0.8 %; Hematocrit 50.1 % (37.5-50.1); Immature Granulocytes % 0.3 % (0-4); Lymphocytes # 2.6 K/mcL (0.6-4.6); Lymphocytes % 43.4 %; Mean Corpuscular HGB Conc 33.9 g/dL (31.6-35.5); Mean Corpuscular Hemoglobin 29.9 pg (28.0-33.3); Mean Platelet Volume 8.3 fL (9.4-12.4); Monocytes # 0.6 K/mcL (0.0-1.3); Neutrophils # 2.7 K/mcL (1.6-8.9); Platelet Count 263 K/mcL (140-400); Red Blood Count 5.69 M/mcL (4.19-5.50); Red Cell Distribution Width 12.4 % (11.5-14.5); Segmented Neutrophils % 44.8 %; White Blood Count 6.1 K/mcL (4.3-11.1)
[2020-07-27 05:42] LABS: Alanine Aminotransferase 36 Units/L (7-52); Albumin 4.4 g/dL (3.5-5.7); Albumin/Globulin Ratio 1.3 (1.1-2.2); Alkaline Phosphatase 83 Units/L (34-104); Aspartate Amino Transferase 33 Units/L (13-39); BUN/Creatinine Ratio 8 (6-26); Bilirubin,Total 0.5 mg/dL (0.3-1.0); Blood Urea Nitrogen 7 mg/dL (6-20); Calcium 9.3 mg/dL (8.6-10.3); Carbon Dioxide 23 mEq/L (23-29); Chloride 103 mEq/L (98-107); Chol/HDL Ratio 3.4 (0-4.9); Cholesterol 225 mg/dL (< 200); Globulin 3.5 g/dL (2.4-3.5); Glucose 92 mg/dL (70-105); HDL Cholesterol 66 mg/dL (40-59); Osmolality,Calculated 286 (280-300); Potassium 3.9 mEq/L (3.5-5.1); Sodium 139 mEq/L (136-145); Total Protein 7.9 g/dL (6.4-8.9); Triglycerides 415 mg/dL (< 150); eGFR For African Americans > 60 (> 60); eGFR For Non-African Americans > 60 (> 60)
[2020-07-27] MEDS: Pantoprazole 40 MG VIAL IVP SCH (08:15)
[2020-07-27] MEDS: *HR* Enoxaparin 40 MG/0.4 ML SYRINGE SQ SCH (13:33)
[2020-07-27] MEDS ORDERED: *HR* LORazepam 2 MG/ML VIAL IVP PRN ×2 (15:02)
[2020-07-27] MEDS: gemfibroziL 600 MG TABLET PO SCH (17:21)
[2020-07-27] MEDS: Baclofen 10 MG TABLET PO SCH ×2 (17:21→20:07)
[2020-07-27] MEDS: Thiamine (B-1) 100 MG, Folic Acid 1 MG, MVI, adult with vitamin K 10 ML in 0.9 % Sodi... IVPB SCH (17:22)
[2020-07-27] MEDS ORDERED: Melatonin 3 MG TABLET PO PRN (22:22)
[2020-07-28] MEDS: Insulin LISPRO 300 UNITS/3 ML VIAL SUBQ SCH ×3 (02:39→11:56)
[2020-07-28] MEDS: Ipratropium/Albuterol Neb 3 ML IH SCH ×2 (03:19→10:18)
[2020-07-28] MEDS: *HR* Enoxaparin 40 MG/0.4 ML SYRINGE SQ SCH (06:50)
[2020-07-28] MEDS: gemfibroziL 600 MG TABLET PO SCH (06:51)
[2020-07-28] MEDS: Pantoprazole 40 MG VIAL IVP SCH (09:08)
[2020-07-28] MEDS: Baclofen 10 MG TABLET PO SCH (09:08)
[2020-07-28 11:42] VITALS: BP 167/101
== END 2020-07-28 12:22 | disposition left against medical advice (07) ==
LOC: EMEROOARM 14:20 → 2ANU 14:20 → SUATTDRO 18:34 → 2ANU 18:50
PROVIDERS: ADMIT Student in an Organized Health Care Education/Training Program; ATTEND General Practice

== ENCOUNTER 2020-10-15 | Observation (INO) ==
[2020-10-15 00:41] LABS: Bilirubin,Urine Negative (Negative); Blood,Urine Negative (Negative); Clarity,Urine Clear (Clear); Color,Urine Colorless (Yellow); Glucose,Urine (UA) Normal (Normal); Ketones,Urine Negative (Negative); Leukocyte Esterase,Urine Negative (Negative); Nitrite,Urine Negative (Negative); PH,Urine 6.5 pH Units (5.0-8.0); Protein,Urine Negative (Neg-Trace); Specific Gravity,Urine < 1.005 (1.010-1.025); Urobilinogen,Urine Normal (Normal)
[2020-10-15 00:52] LABS: Amphetamine Screen,Urine Negative ng/mL (Cutoff=1000); Barbiturate Screen,Urine Negative ng/mL (Cutoff=200); Benzodiazepines Screen,Urine Negative ng/mL (Cutoff=200); Cannabinoid Screen,Urine Negative ng/mL (Cutoff = 50); Cocaine Screen,Urine Negative ng/mL (Cutoff= 300); Opiate Screen,Urine Negative ng/mL (Cutoff=300); Phencyclidine Screen,Urine Negative ng/mL (Cutoff=25)
[2020-10-15 00:56] LABS: Basophils % 0.4 %; Eosinophils % 0.2 %; Hematocrit 44.1 % (37.5-50.1); Hemoglobin 14.6 g/dL (12.9-16.9); Immature Granulocytes % 0.4 % (0-4); Lymphocytes # 2.5 K/mcL (0.6-4.6); Mean Corpuscular HGB Conc 33.1 g/dL (31.6-35.5); Mean Corpuscular Hemoglobin 28.9 pg (28.0-33.3); Mean Corpuscular Volume 87.2 fL (83.0-100.0); Mean Platelet Volume 8.8 fL (9.4-12.4); Monocytes # 0.3 K/mcL (0.0-1.3); Monocytes % 3.8 %; Neutrophils # 5.5 K/mcL (1.6-8.9); Platelet Count 287 K/mcL (140-400); Red Blood Count 5.06 M/mcL (4.19-5.50); Red Cell Distribution Width 13.1 % (11.5-14.5); Segmented Neutrophils % 65.2 %; White Blood Count 8.5 K/mcL (4.3-11.1)
[2020-10-15 01:19] LABS: Acetaminophen < 10 mcg/mL (10-20); BUN/Creatinine Ratio 8 (6-26); Blood Urea Nitrogen 6 mg/dL (6-20); Calcium 9.3 mg/dL (8.6-10.3); Carbon Dioxide 21 mEq/L (23-29); Chloride 105 mEq/L (98-107); Chol/HDL Ratio 5.2 (0-4.9); Cholesterol 198 mg/dL (< 200); Ethanol 275 mg/dL (Less than 10); Glucose 116 mg/dL (70-105); HDL Cholesterol 38 mg/dL (40-59); LDL Cholesterol,Calculated 81 mg/dL (< 100); Osmolality,Calculated 289 (280-300); Potassium 3.4 mEq/L (3.5-5.1); Salicylate < 2.5 mg/dL (15.0-30.0); Sodium 140 mEq/L (136-145); Triglycerides 396 mg/dL (< 150); eGFR For African Americans > 60 (> 60); eGFR For Non-African Americans > 60 (> 60)
[2020-10-15] MEDS ORDERED: *HR* LORazepam 2 MG/ML VIAL IM ONE (02:05)
[2020-10-15] MEDS ORDERED: Ziprasidone 10 MG, Closed System Device IM Kit 1 EACH in Water for inj. (sterile) 0.5 ML IM ONE (02:05)
[2020-10-15] MEDS ORDERED: Ziprasidone 20 MG/VIAL VIAL IM ONE (02:09)
[2020-10-15] MEDS ORDERED: Water for inj. (sterile) 10 ML ONE (02:09)
[2020-10-15 03:09] LABS: Estimated Average Glucose 117 mg/dl; Hemoglobin A1C 5.7 %
[2020-10-15] MEDS ORDERED: Naloxone 0.4 MG/ML INJ IVP PRN (08:06)
[2020-10-15] MEDS ORDERED: Melatonin 3 MG TABLET PO PRN (08:06)
[2020-10-15] MEDS ORDERED: *HR* LORazepam 2 MG/ML VIAL IVP PRN ×3 (11:31)
[2020-10-15] MEDS ORDERED: hydrOXYzine pamoate 25 MG CAPSULE PO PRN (16:13)
[2020-10-15] MEDS ORDERED: Thiamine (B-1) 100 MG, Folic Acid 1 MG, MVI, adult with vitamin K 10 ML in 0.9 % Sodi... IVPB SCH (18:00)
[2020-10-15] MEDS: hydroCHLOROthiazide 25 MG TABLET PO SCH (20:06)
[2020-10-15] MEDS: cloNIDine HCL 0.1 MG TABLET PO SCH (20:06)
[2020-10-16 06:24] LABS: Basophils % 0.6 %; Eosinophils # 0.1 K/mcL (0.0-0.6); Eosinophils % 1.9 %; Hematocrit 43.7 % (37.5-50.1); Hemoglobin 14.2 g/dL (12.9-16.9); Immature Granulocytes % 0.3 % (0-4); Lymphocytes # 2.5 K/mcL (0.6-4.6); Lymphocytes % 36.4 %; Mean Corpuscular HGB Conc 32.5 g/dL (31.6-35.5); Mean Corpuscular Hemoglobin 29.2 pg (28.0-33.3); Mean Corpuscular Volume 89.7 fL (83.0-100.0); Mean Platelet Volume 8.7 fL (9.4-12.4); Monocytes # 0.6 K/mcL (0.0-1.3); Monocytes % 8.9 %; Neutrophils # 3.5 K/mcL (1.6-8.9); Platelet Count 273 K/mcL (140-400); Red Blood Count 4.87 M/mcL (4.19-5.50); Red Cell Distribution Width 13.3 % (11.5-14.5); Segmented Neutrophils % 51.9 %; White Blood Count 6.8 K/mcL (4.3-11.1)
[2020-10-16] MEDS: hydrOXYzine pamoate 25 MG CAPSULE PO PRN ×2 (06:30→21:26)
[2020-10-16 06:41] LABS: BUN/Creatinine Ratio 16 (6-26); Blood Urea Nitrogen 13 mg/dL (6-20); Calcium 9.2 mg/dL (8.6-10.3); Carbon Dioxide 24 mEq/L (23-29); Chloride 108 mEq/L (98-107); Glucose 97 mg/dL (70-105); Osmolality,Calculated 290 (280-300); Potassium 3.9 mEq/L (3.5-5.1); Sodium 140 mEq/L (136-145); eGFR For African Americans > 60 (> 60); eGFR For Non-African Americans > 60 (> 60)
[2020-10-16] MEDS: Folic Acid 1 MG TABLET PO SCH (08:41)
[2020-10-16] MEDS: Vitamin B Complex/Vit C/Vit E 1 EACH TABLET PO SCH (08:41)
[2020-10-16] MEDS: Thiamine (B-1) 100 MG TABLET PO SCH (08:41)
[2020-10-16] MEDS: hydroCHLOROthiazide 25 MG TABLET PO SCH ×2 (08:41→21:26)
[2020-10-16] MEDS: cloNIDine HCL 0.1 MG TABLET PO SCH ×3 (08:41→21:26)
[2020-10-16] MEDS: Nicotine 21 MG PATCH.TD24 TD SCH (11:12)
[2020-10-17] MEDS: cloNIDine HCL 0.1 MG TABLET PO SCH (07:39)
[2020-10-17] MEDS: Vitamin B Complex/Vit C/Vit E 1 EACH TABLET PO SCH (07:39)
[2020-10-17] MEDS: hydroCHLOROthiazide 25 MG TABLET PO SCH (07:39)
[2020-10-17] MEDS: Thiamine (B-1) 100 MG TABLET PO SCH (07:39)
[2020-10-17] MEDS: Folic Acid 1 MG TABLET PO SCH (07:39)
[2020-10-17] MEDS: Nicotine 21 MG PATCH.TD24 TD SCH (07:40)
[2020-10-17] MEDS: hydrOXYzine pamoate 25 MG CAPSULE PO PRN (07:54)
[2020-10-17 11:08] VITALS: BP 157/99; PULSE 77; TEMP 98; O2SAT 96
[2020-10-17] MEDS ORDERED: *HR* LORazepam 1 MG TABLET PO ONE (11:45)
== END 2020-10-17 13:32 ==
LOC: 2ANU → EMEROOARM → 2ANU 08:55
PROVIDERS: ADMIT Internal Medicine; ATTEND Internal Medicine